=== PATIENT | female | born 1945 | race Caucasian/White ===

== ENCOUNTER → 2018-10-18 16:39 | Outpatient (CLI) | payer MEDICARE, SELFPAY ==
[2018-10-18 17:35] LABS: Prothrombin Time (Protime)PT. 12.6 SECONDS (11.7-14.9)
[2018-10-18 17:36] LABS: Partial Thromboplast Time 30.2 Seconds (24.1-36.2)
[2018-10-18 17:57] LABS: Basophil% 0.6 % (0-1); Eosinophils% 2.1 % (0-5); Hematocrit 44.1 % (37-47); Lymphocyte % 32.5 % (19-41); Mean Corpuscular Hgb 30.6 pg (27.0-32.0); Mean Platelet Vol. 9.3 fl (6.2-12.0); Monocyte% 10.7 % (0-10); Neutrophil % 53.8 % (47-70); POSITIVE COUNT NO; POSITIVE DIFFERENTIAL NO; POSITIVE MORPHOLOGY NO; Platelet Count 288 K/mm3 (150-450); RBC Distribution Width CV 13.9 % (11.6-14.6); RBC Distribution Width SD 45.6 fl (35.1-43.9)
[2018-10-18 17:58] LABS: Absolute Lymphocyte Count 2.59 X10^3/ul (0.83-4.51); Absolute Neutrophil Count 4.3 X10^3/uL (2.0-7.7); Basophil# 0.05 X10^3/uL; Eosinophil# 0.17 X10^3/uL; Lymphocyte # 2.59 X10^3/ul (4.0); Monocyte# 0.85 X10^3/uL
[2018-10-18 18:03] LABS: Vitamin D,25 Hydroxy 18.5 ng/mL (29.95-100.01)
[2018-10-18 18:04] LABS: ALB/GLOB Ratio 1.2 RATIO (0.9-2.4); AST(SGOT) 25 U/L (15-37); Alanine Aminotransfer ALT/SGPT 32 U/L (13-56); Albumin, Serum 4.2 g/dL (3.2-5.0); Alkaline Phosphatase 98 U/L (45-117); Anion Gap 3 (5-15); BUN 11 mg/dL (7-18); BUN/Creat Ratio 12.1 RATIO (10-20); Calcium,Total 9.4 mg/dL (8.5-10.1); Chloride 104 mmol/L (98-107); Creatinine, Serum 0.91 mg/dL (0.55-1.02); EST Glomerular Filtration Rate 65 mL/min (>60); Est Glom Filt Rate - Afr Amer 78 mL/min (>60); Globulin 3.6 g/dL (2.2-4.2); Glucose 85 mg/dL (74-106); Potassium 3.6 mmol/L (3.5-5.1); Protein, Total 7.8 g/dL (6.4-8.2); Sodium Level 138 mmol/L (136-145); Thyroid Stim Hormone (TSH) 0.98 uIU/mL (0.358-3.74)
== END ==
PROVIDERS: Visit Provider Family Medicine Geriatric Medicine
DX: D68.8 Other specified coagulation defects (principal); E55.9 Vitamin D deficiency, unspecified; I10 Essential (primary) hypertension
CPT/HCPCS: 36415; 80053; 82306; 84443; 85025; 85610; 85730

== ENCOUNTER → 2020-04-09 14:52 | Outpatient (CLI) | payer MEDICARE, SELFPAY ==
--- NOTE | 2020-04-09 15:15 | CT_ITS ---
STUDY: CT CHEST WITH CONTRAST REASON FOR EXAM: Female, 74 years old. Cough and voice change per patient RADIATION DOSAGE (If Supplied By Facility): CTDIvol = ( 11.45 ) mGy, DLP = ( 463.83 ) mGycm TECHNIQUE: Transaxial imaging was performed following intravenous administration of IV 100mL Isovue-300. Multiplanar coronal and sagittal images were reformatted. Individualized dose optimization techniques were used for this CT. COMPARISON: None. FINDINGS: Small benign-appearing bilateral axillary lymph nodes. Mild degree of increased linear markings in the medial aspect of the right middle lobe with evidence of bronchiectasis suggestive of scarring. Mild increased markings in the lingular segment of the left upper lobe suggestive of scarring. Mild degree of scarring at the lung bases as well. There is no demonstrated pleural abnormality. There are calcifications of the coronary arteries. There are multiple small lymph nodes within the mediastinum, which are normal in size and morphology most compatible with reactive lymph hyperplasia. Normal hilar regions. Normal enhanced pulmonary arteries. Normal aorta arch and descending thoracic aorta. There are multi-level degenerative changes of the thoracic spine. Small hiatal hernia. Prior cholecystectomy. CT/Chest WITH Contrast IMPRESSION: Findings suggestive of scarring in the right middle lobe and lingular segment of the left upper lobe as well as at both lung bases with mild degree of bronchiectasis. Electronically Signed: Manjeet Rodarte, at 12:54 EDT , Service support ,
[2020-04-09 15:21] LABS: CREATININE FINGERSTICK 0.9 mg/dL (0.55-1.02); EGFR FINGERSTICK > 60.0000 mL/min (>60)
== END ==
LOC: CT 10-10 00:29
PROVIDERS: PCP Family Medicine Geriatric Medicine; Referring Provider Family Medicine Geriatric Medicine; Visit Provider Family Medicine Geriatric Medicine
DX: J47.9 Bronchiectasis, uncomplicated (principal)
CPT/HCPCS: 71260; Q9967; A4216

== ENCOUNTER → 2020-04-12 09:39 | Outpatient (CLI) | payer MEDICARE, OTHER, SELFPAY ==
--- NOTE | 2020-04-13 10:27 | PFT ---
INTRODUCTION: The patient is a 74-year-old female that presents for pulmonary function studies secondary to a diagnosis of shortness of breath. Respiratory therapy reports good patient effort. Bronchodilators were used during testing. INTERPRETATION: Forced expiration spirometry demonstrates no evidence of a large airways obstructive ventilatory defect. There was no significant response to aerosolized bronchodilators. Spirograms are of good quality and plateau normally. Body plethysmography was performed and reveals lung volumes to be within normal limits. Diffusing capacity by single breath CO is also within normal limits. IMPRESSION: Grossly normal pulmonary function studies.
== END ==
PROVIDERS: PCP Family Medicine Geriatric Medicine; Referring Provider Family Medicine Geriatric Medicine; Visit Provider Family Medicine Geriatric Medicine
DX: R06.02 Shortness of breath (principal)
CPT/HCPCS: 94060; 94726; 94729

== ENCOUNTER → 2020-11-08 14:11 | Outpatient (CLI) | payer MEDICARE, SELFPAY ==
[2020-11-08 17:18] LABS: Absolute Lymphocyte Count 2.26 X10^3/uL (0.83-4.51); Absolute Neutrophil Count 3.8 X10^3/uL (2.0-7.7); Basophil# 0.04 X10^3/uL; Basophil% 0.6 % (0-1); Eosinophil# 0.18 X10^3/uL; Eosinophils% 2.5 % (0-5); Hematocrit 43.9 % (37-47); Hemoglobin 13.9 g/dL (12.0-15.0); Lymphocyte # 2.26 X10^3/ul (0.83-4.51); Lymphocyte % 31.8 % (19-41); Mean Corp Hgb Conc 31.7 g/dL (32-36); Mean Corpuscular Hgb 29.4 pg (27.0-32.0); Mean Corpuscular Volume 92.8 fL (81-99); Mean Platelet Vol. 9.6 fl (6.2-12.0); Monocyte# 0.83 X10^3/uL; Monocyte% 11.7 % (0-10); NRBC Flagged by Analyzer 0 % (0-5); Neutrophil # 3.76 X10^3/uL (2.7-7.7); Platelet Count 289 K/mm3 (150-450); RBC Distribution Width CV 13.4 % (11.6-14.6); RBC Distribution Width SD 46.2 fl (35.1-43.9); Red Blood Count 4.73 M/mm3 (4.2-5.4); White Blood Count 7.1 K/mm3 (4.4-11.0)
[2020-11-08 17:19] LABS: Vitamin D,25 Hydroxy 24.2 ng/mL
[2020-11-08 17:37] LABS: AST(SGOT) 18 U/L (15-37); Alanine Aminotransfer ALT/SGPT 28 U/L (13-56); Albumin, Serum 3.8 g/dL (3.2-5.0); Alkaline Phosphatase 87 U/L (45-117); Anion Gap 5 (5-15); BUN 21 mg/dL (7-18); BUN/Creat Ratio 17.5 RATIO (10-20); Calcium,Total 9.4 mg/dL (8.5-10.1); Chloride 103 mmol/L (98-107); EST Glomerular Filtration Rate 47 mL/min (>60); Est Glom Filt Rate - Afr Amer 56 mL/min (>60); Globulin 3.7 g/dL (2.2-4.2); Glucose 92 mg/dL (74-106); Potassium 4.2 mmol/L (3.5-5.1); Protein, Total 7.5 g/dL (6.4-8.2); Sodium Level 139 mmol/L (136-145); Thyroid Stim Hormone (TSH) 1.02 uIU/mL (0.358-3.74)
== END ==
PROVIDERS: PCP Family Medicine Geriatric Medicine; Visit Provider Family Medicine Geriatric Medicine
DX: E55.9 Vitamin D deficiency, unspecified (principal); I10 Essential (primary) hypertension
CPT/HCPCS: 36415; 80053; 82306; 84443; 85025

== ENCOUNTER → 2021-01-11 09:22 | Outpatient (CLI) | payer MEDICARE, OTHER, SELFPAY | PROVIDERS: PCP Family Medicine Geriatric Medicine; Visit Provider Family Medicine Geriatric Medicine | DX: R68.83 Chills (without fever) (principal) | CPT/HCPCS: 87635; C9803; U0005; U0003 ==

== ENCOUNTER → 2021-05-08 16:08 | Outpatient (CLI) | payer MEDICARE, OTHER, SELFPAY | PROVIDERS: PCP Family Medicine Geriatric Medicine; Referring Provider Family Medicine Geriatric Medicine; Visit Provider Family Medicine Geriatric Medicine | DX: R06.89 Other abnormalities of breathing (principal) | CPT/HCPCS: 87635; 87804; 87807; U0005; U0003 ==

== ENCOUNTER → 2021-05-09 15:55 | Outpatient (CLI) | payer MEDICARE, OTHER, SELFPAY ==
[2021-05-09 17:30] LABS: Absolute Lymphocyte Count 1.57 X10^3/uL (0.83-4.51); Absolute Neutrophil Count 6.9 X10^3/uL (2.0-7.7); Basophil# 0.02 X10^3/uL; Basophil% 0.2 % (0-1); Eosinophil# 0.22 X10^3/uL; Eosinophils% 2.3 % (0-5); Hematocrit 39.2 % (37-47); Hemoglobin 12.6 g/dL (12.0-15.0); Lymphocyte # 1.57 X10^3/ul (0.83-4.51); Lymphocyte % 16.6 % (19-41); Mean Corp Hgb Conc 32.1 g/dL (32-36); Mean Corpuscular Hgb 29.9 pg (27.0-32.0); Mean Corpuscular Volume 93.1 fL (81-99); Mean Platelet Vol. 9.4 fl (6.2-12.0); Monocyte# 0.67 X10^3/uL; Monocyte% 7.1 % (0-10); NRBC Flagged by Analyzer 0 % (0-5); Platelet Count 321 K/mm3 (150-450); RBC Distribution Width CV 13.3 % (11.6-14.6); RBC Distribution Width SD 45.2 fl (35.1-43.9); Red Blood Count 4.21 M/mm3 (4.2-5.4); White Blood Count 9.5 K/mm3 (4.4-11.0)
[2021-05-09 18:23] LABS: Vitamin D,25 Hydroxy 25.6 ng/mL
[2021-05-09 18:34] LABS: ALB/GLOB Ratio 0.8 RATIO (0.9-2.4); AST(SGOT) 26 U/L (15-37); Alanine Aminotransfer ALT/SGPT 47 U/L (13-56); Albumin, Serum 3.4 g/dL (3.2-5.0); Alkaline Phosphatase 85 U/L (45-117); Anion Gap 6 (5-15); BUN 39 mg/dL (7-18); BUN/Creat Ratio 26.4 RATIO (10-20); Calcium,Total 9.1 mg/dL (8.5-10.1); Chloride 101 mmol/L (98-107); Creatinine, Serum 1.48 mg/dL (0.55-1.02); EST Glomerular Filtration Rate 37 mL/min (>60); Est Glom Filt Rate - Afr Amer 44 mL/min (>60); Globulin 4.2 g/dL (2.2-4.2); Glucose 132 mg/dL (74-106); Potassium 4.6 mmol/L (3.5-5.1); Protein, Total 7.6 g/dL (6.4-8.2); Sodium Level 137 mmol/L (136-145)
== END ==
PROVIDERS: PCP Family Medicine Geriatric Medicine; Visit Provider Family Medicine Geriatric Medicine
DX: E55.9 Vitamin D deficiency, unspecified (principal); I10 Essential (primary) hypertension
CPT/HCPCS: 36415; 80053; 82306; 84443; 85025

== ENCOUNTER 2021-09-12 14:17 | Outpatient (CLI) | payer MEDICARE, OTHER, SELFPAY ==
[2021-09-12 17:48] LABS: Albumin, Serum 3.7 g/dL (3.2-5.0); BUN 21 mg/dL (7-18); BUN/Creat Ratio 16.7 RATIO (10-20); Calcium,Total 9.3 mg/dL (8.5-10.1); Chloride 101 mmol/L (98-107); Creatinine, Serum 1.26 mg/dL (0.55-1.02); EST Glomerular Filtration Rate 44 mL/min (>60); Est Glom Filt Rate - Afr Amer 53 mL/min (>60); Glucose 68 mg/dL (74-106); Phosphorus 3.1 mg/dL (2.5-4.9); Potassium 3.6 mmol/L (3.5-5.1); Sodium Level 138 mmol/L (136-145)
== END 2021-09-12 23:59 | disposition home or self-care (01) ==
PROVIDERS: PCP Family Medicine Geriatric Medicine; Visit Provider Internal Medicine Nephrology
DX: N17.9 Acute kidney failure, unspecified (principal)
CPT/HCPCS: 36415; 80069

== ENCOUNTER 2021-09-24 12:57 | Outpatient (CLI) | payer MEDICARE, OTHER, SELFPAY ==
--- NOTE | 2021-09-24 13:03 | US_ITS ---
STUDY: RENAL ULTRASOUND - COMPLETE REASON FOR EXAM: Female, 76 years old. STAGE 3 KIDNEY DISEASE TECHNIQUE: Ultrasound evaluation of the kidneys was performed with real-time and static walsh-scale imaging. COMPARISON: None. FINDINGS: RIGHT KIDNEY: Normal location of the right kidney, which is normal in size. The right kidney measures 10.74 cm. There is a normal cortex of the right kidney. There is no right renal mass or cyst. There are no right renal calculi. There is no right hydronephrosis. DISTAL RIGHT URETER: There is non-visualization of the distal right ureter. There is no demonstrated right ureterovesical junction calculus. There is a visualized right ureteral jet. LEFT KIDNEY: Normal location of the left kidney, which is normal in size. The left kidney measures 10.67 cm. There is a normal cortex of the left kidney. . There is no left renal mass or cyst. There are no left renal calculi. There is no left hydronephrosis. DISTAL LEFT URETER: There is non-visualization of the distal left ureter. There is no demonstrated left ureterovesical junction calculus. There is a visualized left ureteral jet. I.V.C.: The IVC is patent. US/Kidney and Bladder IMPRESSION: Normal ultrasound of the kidneys. Electronically Signed: Michael Ortiz MD at 6:09 EDT ,
== END 2021-09-24 23:59 | disposition home or self-care (01) ==
LOC: US 13:00
PROVIDERS: PCP Family Medicine Geriatric Medicine; Referring Provider Internal Medicine Nephrology; Visit Provider Internal Medicine Nephrology
DX: N18.32 Chronic kidney disease, stage 3b (principal)
CPT/HCPCS: 76770

== ENCOUNTER → 2021-12-12 | Outpatient (CLI) | payer MEDICARE, OTHER, SELFPAY ==
[2021-12-12 16:17] LABS: Absolute Lymphocyte Count 2.16 X10^3/uL (0.83-4.51); Absolute Neutrophil Count 3.4 X10^3/uL (2.0-7.7); Basophil# 0.05 X10^3/uL; Basophil% 0.8 % (0-1); Eosinophil# 0.14 X10^3/uL; Eosinophils% 2.2 % (0-5); Hematocrit 42.2 % (37-47); Hemoglobin 13.7 g/dL (12.0-15.0); Lymphocyte # 2.16 X10^3/ul (0.83-4.51); Lymphocyte % 33.3 % (19-41); Mean Corp Hgb Conc 32.5 g/dL (32-36); Mean Corpuscular Volume 92.3 fL (81-99); Mean Platelet Vol. 9.5 fl (6.2-12.0); Monocyte# 0.66 X10^3/uL; Monocyte% 10.2 % (0-10); NRBC Flagged by Analyzer 0 % (0-5); Neutrophil # 3.44 X10^3/uL (2.7-7.7); Platelet Count 270 K/mm3 (150-450); RBC Distribution Width CV 13.9 % (11.6-14.6); RBC Distribution Width SD 47.5 fl (35.1-43.9); Red Blood Count 4.57 M/mm3 (4.2-5.4); White Blood Count 6.5 K/mm3 (4.4-11.0)
[2021-12-12 16:30] LABS: Vitamin D,25 Hydroxy 25.4 ng/mL
[2021-12-12 16:45] LABS: AST(SGOT) 25 U/L (15-37); Alanine Aminotransfer ALT/SGPT 30 U/L (13-56); Albumin, Serum 3.6 g/dL (3.2-5.0); Alkaline Phosphatase 68 U/L (45-117); Anion Gap 6 (5-15); BUN 14 mg/dL (7-18); Calcium,Total 9.3 mg/dL (8.5-10.1); Chloride 104 mmol/L (98-107); Creatinine, Serum 1.17 mg/dL (0.55-1.02); EST Glomerular Filtration Rate 48 mL/min (>60); Est Glom Filt Rate - Afr Amer 58 mL/min (>60); Globulin 3.6 g/dL (2.2-4.2); Glucose 76 mg/dL (74-106); Potassium 3.3 mmol/L (3.5-5.1); Protein, Total 7.2 g/dL (6.4-8.2); Sodium Level 140 mmol/L (136-145); Thyroid Stim Hormone (TSH) 0.71 uIU/mL (0.358-3.74)
== END | disposition home or self-care (01) ==
LOC: POLAB3 13:12
PROVIDERS: PCP Family Medicine Geriatric Medicine; Visit Provider Family Medicine Geriatric Medicine
DX: E55.9 Vitamin D deficiency, unspecified (principal); I10 Essential (primary) hypertension
CPT/HCPCS: 36415; 80053; 82306; 84443; 85025

== ENCOUNTER → 2022-05-22 | Outpatient (CLI) | payer MEDICARE, OTHER, SELFPAY ==
[2022-05-22 16:58] LABS: Basophil# 0.05 X10^3/uL; Basophil% 0.6 % (0-1); Eosinophil# 0.19 X10^3/uL; Eosinophils% 2.3 % (0-5); Hemoglobin 14.3 g/dL (12.0-15.0); Mean Corp Hgb Conc 32.5 g/dL (32-36); Mean Corpuscular Volume 92.4 fL (81-99); Mean Platelet Vol. 9.5 fl (6.2-12.0); Monocyte# 1.08 X10^3/uL; Monocyte% 13.1 % (0-10); NRBC Flagged by Analyzer 0 % (0-5); Neutrophil % 60.6 % (47-70); Platelet Count 274 K/mm3 (150-450); RBC Distribution Width CV 13.7 % (11.6-14.6); RBC Distribution Width SD 47.2 fl (35.1-43.9); Red Blood Count 4.76 M/mm3 (4.2-5.4); White Blood Count 8.3 K/mm3 (4.4-11.0)
[2022-05-22 17:36] LABS: Vitamin D,25 Hydroxy 19.8 ng/mL
[2022-05-22 17:39] LABS: AST(SGOT) 17 U/L (15-37); Alanine Aminotransfer ALT/SGPT 29 U/L (13-56); Albumin, Serum 3.7 g/dL (3.2-5.0); Alkaline Phosphatase 85 U/L (45-117); Anion Gap 7 (5-15); BUN 13 mg/dL (7-18); BUN/Creat Ratio 13.5 RATIO (10-20); Calcium,Total 9.3 mg/dL (8.5-10.1); Chloride 106 mmol/L (98-107); Creatinine, Serum 0.96 mg/dL (0.55-1.02); EST Glomerular Filtration Rate 60 mL/min (>60); Est Glom Filt Rate - Afr Amer 72 mL/min (>60); Globulin 3.8 g/dL (2.2-4.2); Glucose 91 mg/dL (74-106); Potassium 3.5 mmol/L (3.5-5.1); Protein, Total 7.5 g/dL (6.4-8.2); Sodium Level 142 mmol/L (136-145); Thyroid Stim Hormone (TSH) 0.96 uIU/mL (0.358-3.74)
== END | disposition home or self-care (01) ==
LOC: POLAB3 14:50
PROVIDERS: PCP Family Medicine Geriatric Medicine; Visit Provider Family Medicine Geriatric Medicine
DX: I10 Essential (primary) hypertension (principal); E55.9 Vitamin D deficiency, unspecified
CPT/HCPCS: 36415; 80053; 82306; 84443; 85025

== ENCOUNTER 2022-07-24 11:51 | Outpatient (CLI) | payer MEDICARE, SELFPAY ==
--- NOTE | 2022-07-24 11:55 | CT_ITS ---
STUDY: CT ABDOMEN AND PELVIS WITH CONTRAST REASON FOR EXAM: Female, 77 years old. Mid to lower abdominal pain. Hypertension. RADIATION DOSAGE (If Supplied By Facility): CTDIvol = ( 14.61 ) mGy, DLP = ( 875.20 ) mGycm TECHNIQUE: Transaxial images were obtained from the dome of the diaphragm to the symphysis pubis with oral contrast. Oral and amp; IV Gastrografin and amp; 100mL Isovue-370 was administered. Sagittal and coronal images were reconstructed. Individualized dose optimization techniques were used for this CT. COMPARISON: None. FINDINGS: Minimal scarring at the lung bases with bronchiectasis. Scarring is also seen in the right middle lobe. The visualized portions of the heart are within normal limits. Minimally dilated central intrahepatic biliary ducts. There is a 9.3 mm hepatic cyst in the left lobe of the liver. There are surgical clips in the gallbladder fossa consistent with a prior cholecystectomy. Normal spleen. Normal pancreas. Normal bilateral adrenal glands. Tiny focal cortical scar in the lateral aspect of the right midportion of the kidney. Normal left kidney. There is a small hiatal hernia. Diffuse gastric wall thickening extending into the region of the antrum. The stomach is not adequately distended although gastritis should be ruled out. Normal small intestine. There is diverticulosis, with thickening of the colon wall, and pericolonic inflammation changes consistent with acute diverticulitis. The appendix is visualized and appears normal. Normal abdominal aorta. Normal inferior vena cava. Normal retroperitoneum. Normal urinary bladder. And heterogeneous appearance of the uterus suggestive of a fibroid uterus. Normal abdominal wall. There are diffuse degenerative changes of the visualized lumbar spine. CT/Abdomen/Pelvis WITH Contrast IMPRESSION: Status post cholecystectomy and minimal central intrahepatic biliary dilatation. Subcentimeter cyst in the left lobe of the liver. Diffuse gastric wall thickening extending to the region of the antrum. Acute noncomplicated sigmoid diverticulitis. Electronically Signed: Manjeet Rodarte MD at 14:41 EST ,
== END 2022-07-24 23:59 | disposition home or self-care (01) ==
PROVIDERS: PCP Family Medicine Geriatric Medicine; Visit Provider Family Medicine Geriatric Medicine
DX: R10.9 Unspecified abdominal pain (principal); R35.0 Frequency of micturition
CPT/HCPCS: 36415; 74177; 80053; 85025; 87086; 87088; Q9967

== ENCOUNTER → 2022-07-24 | Outpatient (CLI) | payer MEDICARE, SELFPAY ==
[2022-07-24 12:49] LABS: Absolute Lymphocyte Count 2.38 X10^3/uL (0.83-4.51); Absolute Neutrophil Count 8.2 X10^3/uL (2.0-7.7); Basophil# 0.05 X10^3/uL; Basophil% 0.4 % (0-1); Eosinophils% 1.6 % (0-5); Hematocrit 42.1 % (37-47); Hemoglobin 13.8 g/dL (12.0-15.0); Lymphocyte # 2.38 X10^3/ul (0.83-4.51); Lymphocyte % 19.4 % (19-41); Mean Corp Hgb Conc 32.8 g/dL (32-36); Mean Corpuscular Hgb 29.6 pg (27.0-32.0); Mean Corpuscular Volume 90.1 fL (81-99); Mean Platelet Vol. 9.4 fl (6.2-12.0); Monocyte# 1.38 X10^3/uL; Monocyte% 11.2 % (0-10); NRBC Flagged by Analyzer 0 % (0-5); Neutrophil # 8.19 X10^3/uL (2.7-7.7); Neutrophil % 66.8 % (47-70); Platelet Count 307 K/mm3 (150-450); RBC Distribution Width CV 13.2 % (11.6-14.6); RBC Distribution Width SD 43.8 fl (35.1-43.9); Red Blood Count 4.67 M/mm3 (4.2-5.4); White Blood Count 12.3 K/mm3 (4.4-11.0)
[2022-07-24 13:37] LABS: ALB/GLOB Ratio 0.8 RATIO (0.9-2.4); AST(SGOT) 18 U/L (15-37); Alanine Aminotransfer ALT/SGPT 25 U/L (13-56); Albumin, Serum 3.4 g/dL (3.2-5.0); Alkaline Phosphatase 91 U/L (45-117); Anion Gap 6 (5-15); BUN 13 mg/dL (7-18); BUN/Creat Ratio 12.5 RATIO (10-20); Calcium,Total 9.2 mg/dL (8.5-10.1); Chloride 104 mmol/L (98-107); Creatinine, Serum 1.04 mg/dL (0.55-1.02); EST Glomerular Filtration Rate 55 mL/min (>60); Est Glom Filt Rate - Afr Amer 66 mL/min (>60); Globulin 4.1 g/dL (2.2-4.2); Glucose 102 mg/dL (74-106); Potassium 3.8 mmol/L (3.5-5.1); Protein, Total 7.5 g/dL (6.4-8.2); Sodium Level 138 mmol/L (136-145)
== END | disposition home or self-care (01) ==
LOC: POLAB3 11:39
PROVIDERS: PCP Family Medicine Geriatric Medicine; Visit Provider Family Medicine Geriatric Medicine
DX: R10.9 Unspecified abdominal pain (principal); R35.0 Frequency of micturition
CPT/HCPCS: 36415; 80053; 85025; 87086; 87088

== ENCOUNTER → 2022-12-17 | Outpatient (CLI) | payer MEDICARE, SELFPAY ==
[2022-12-17 16:23] LABS: Absolute Lymphocyte Count 2.65 X10^3/uL (0.83-4.51); Absolute Neutrophil Count 4.3 X10^3/uL (2.0-7.7); Basophil# 0.06 X10^3/uL; Basophil% 0.7 % (0-1); Eosinophil# 0.14 X10^3/uL; Eosinophils% 1.7 % (0-5); Hematocrit 43.2 % (37-47); Hemoglobin 14.4 g/dL (12.0-15.0); Lymphocyte # 2.65 X10^3/ul (0.83-4.51); Lymphocyte % 32.6 % (19-41); Mean Corp Hgb Conc 33.3 g/dL (32-36); Mean Corpuscular Hgb 30.5 pg (27.0-32.0); Mean Corpuscular Volume 91.5 fL (81-99); Monocyte# 0.93 X10^3/uL; Monocyte% 11.4 % (0-10); NRBC Flagged by Analyzer 0 % (0-5); Neutrophil # 4.33 X10^3/uL (2.7-7.7); Neutrophil % 53.2 % (47-70); Platelet Count 274 K/mm3 (150-450); RBC Distribution Width CV 13.2 % (11.6-14.6); RBC Distribution Width SD 44.6 fl (35.1-43.9); Red Blood Count 4.72 M/mm3 (4.2-5.4); White Blood Count 8.1 K/mm3 (4.4-11.0)
[2022-12-17 17:08] LABS: Vitamin D,25 Hydroxy 25.5 ng/mL
[2022-12-17 17:15] LABS: AST(SGOT) 20 U/L (15-37); Alanine Aminotransfer ALT/SGPT 24 U/L (13-56); Albumin, Serum 3.6 g/dL (3.2-5.0); Alkaline Phosphatase 86 U/L (45-117); Anion Gap 2 (5-15); BUN 18 mg/dL (7-18); BUN/Creat Ratio 18.5 RATIO (10-20); Calcium,Total 9.3 mg/dL (8.5-10.1); Chloride 105 mmol/L (98-107); Creatinine, Serum 0.97 mg/dL (0.55-1.02); EST Glomerular Filtration Rate 59 mL/min (>60); Est Glom Filt Rate - Afr Amer 72 mL/min (>60); Globulin 3.5 g/dL (2.2-4.2); Glucose 89 mg/dL (74-106); Protein, Total 7.1 g/dL (6.4-8.2); Sodium Level 139 mmol/L (136-145); Thyroid Stim Hormone (TSH) 1.07 uIU/mL (0.358-3.74)
== END | disposition home or self-care (01) ==
PROVIDERS: PCP Family Medicine Geriatric Medicine; Referring Provider Family Medicine Geriatric Medicine; Visit Provider Family Medicine Geriatric Medicine
DX: I10 Essential (primary) hypertension (principal); E55.9 Vitamin D deficiency, unspecified
CPT/HCPCS: 36415; 80053; 82306; 84443; 85025

== ENCOUNTER → 2023-03-10 | Outpatient (CLI) | payer MEDICARE, SELFPAY ==
--- NOTE | 2023-03-10 12:31 | ECHOD_ITS ---
Reason For Study: CHEST PAIN Procedure This was a 2D Doppler, Color Flow transthoracic echocardiogram. Exam performed in department. Left Ventricle Normal LV size. Mild concentric left ventricular hypertrophy. The left ventricular ejection fraction is 70 %. Diastolic function is indeterminate. Right Ventricle Normal right ventricle. Atria The left and right atria are normal. Lipomatous hypertrophy of the atrial septum. Mitral Valve Trivial mitral valve insufficiency. Tricuspid Valve Trivial tricuspid valve insufficiency. Normal pulmonary artery pressure. Aortic Valve Normal aortic valve. Pulmonic Valve The pulmonic valve is not well visualized. Great Vessels Normal sized aortic root. Pericardium/Pleural No pericardial effusion. MMode/2D Measurements & Calculations LVIDd: 4.6 cm IVSd: 0.74 cm Ao root diam: 3.0 cm LVIDs: 2.9 cm LVPWd: 0.94 cm RVDd: 2.9 cm FS: 37.1 % LAV(MOD-bp): 56.8 ml LVAd ap4: 18.6 cm2 SV(MOD-sp4): 27.5 ml LAV(MOD-bp) Indexed: 32.7 ml/m2 LVLd ap4: 6.7 cm LAV(MOD-sp2): 46.6 ml EDV(MOD-sp4): 43.8 ml LAV(MOD-sp4): 57.3 ml EDV(sp4-el): 43.9 ml LVAs ap4: 9.6 cm2 LVLs ap4: 5.4 cm ESV(MOD-sp4): 16.2 ml ESV(sp4-el): 14.6 ml EF(MOD-sp4): 62.9 % EF(sp4-el): 66.8 % SV(sp4-el): 29.3 ml LA A4 area: 20.2 cm2 LA dimension(2D): 3.1 cm RA A4 area: 15.5 cm2 TAPSE: 2.5 cm Time Measurements MV dec time: 0.13 sec Doppler Measurements & Calculations MV E max manan: 54.4 cm/sec Lat Peak E' Manan: 7.3 cm/sec Med Peak E' Manan: 4.3 cm/sec MV A max manan: 87.5 cm/sec E/E' lat: 7.5 E/E' med: 12.7 MV E/A: 0.62 MV V2 max: 102.5 cm/sec Ao V2 max: 127.5 cm/sec MV max P.2 mmHg MV dec slope: 442.7 cm/sec2 Ao max P.5 mmHg MV V2 mean: 55.5 cm/sec Ao V2 mean: 85.6 cm/sec MV mean P.4 mmHg Ao mean P.4 mmHg MV V2 VTI: 31.4 cm Ao V2 VTI: 29.0 cm AV (velocity ratio): 0.73 LV V1 max: 102.6 cm/sec PA V2 max: 98.9 cm/sec TR max manan: 256.7 cm/sec LV V1 max P.2 mmHg PA V2 mean: 72.9 cm/sec TR max P.4 mmHg LV V1 mean P.1 mmHg LV V1 mean: 68.1 cm/sec LV V1 VTI: 21.3 cm ECHO/Echo Complete Interpretation Summary Mild concentric left ventricular hypertrophy. The left ventricular ejection fraction is 70 %. Diastolic function is indeterminate. Ordering Physician: Susannah Bryan Referring Physician: Susannah Bryan Performed By: Mary Simpson RCS
--- NOTE | 2023-03-10 15:58 | STRESSREP_ITS ---
Stress Test Report Date: 03/10/2023 Procedure: Exercise tolerance test Indications: Arrhythmia Consent: Per the patient Procedure: The patient exercised on a Marquis protocol for 7 minutes and 52 seconds achieving a peak heart rate of 115 bpm (79% predicted maximal heart rate) with a peak blood pressure 190/90 mmHg and a peak MET capacity of approximately 10.1 MET's. The baseline ECG demonstrated sinus rhythm. The peak exercise ECG demonstrated [address] depressions in inferior and lateral leads. There were no cardiac dysrhythmias pretest, during exercise, or recovery. The functional capacity was considered average. The patient had no complaints of chest discomfort during exercise or recovery. The examination was discontinued secondary to target heart rate being achieved. Impression: 1. Technically adequate exercise tolerance test 2. Peak exercise ECG with downsloping ST depressions in inferior leads suggestive of ischemia 3. There were no cardiac dysrhythmias during exercise or recovery This note was generated with [employer] software. It may contain incorrect words, spelling, and punctuation that were not noted in checking the note before signing.
== END | disposition home or self-care (01) ==
LOC: CVS 12:29
PROVIDERS: PCP Family Medicine Geriatric Medicine; Referring Provider Internal Medicine Cardiovascular Disease; Visit Provider Internal Medicine Cardiovascular Disease
DX: R07.9 Chest pain, unspecified (principal); I47.1 Supraventricular tachycardia; I10 Essential (primary) hypertension; R00.2 Palpitations
CPT/HCPCS: 93017; 93306

== ENCOUNTER → 2023-04-23 | Outpatient (CLI) | payer MEDICARE, SELFPAY ==
--- NOTE | 2023-04-23 13:18 | CT_ITS ---
STUDY: CT CHEST WITHOUT CONTRAST REASON FOR EXAM: Female, 78 years old. CHEST PAIN. Cardiac over read examination. RADIATION DOSAGE (If Supplied By Facility): CTDIvol = ( 30.91 ) mGy, DLP = ( 993.46 ) mGycm TECHNIQUE: Transaxial imaging was performed without the administration of intravenous contrast material. Individualized dose optimization techniques were used for this CT. COMPARISON: No relevant priors. FINDINGS: CHEST Focal linear scarring in the medial aspect of the right upper lobe with focal bronchiectasis. There is evidence of bronchiectasis in the posterior medial segments of both lower lobes slightly more prominent on the right side. There is no demonstrated pleural abnormality. There are calcifications of the coronary arteries. There are multiple small lymph nodes within the mediastinum, which are normal in size and morphology most compatible with reactive lymph hyperplasia. Normal hilar regions. Normal unenhanced pulmonary arteries. Normal aorta arch and descending thoracic aorta. Normal osseous structures. Small hiatal hernia. CT/Limited Chest CT Cardiac Only IMPRESSION: Coronary artery calcification. Mild scarring and bronchiectasis in the posterior segment of both lower lobes slightly more prominent on the right side as well as in the medial aspect of the right upper lobe. Electronically Signed: Manjeet Rodarte MD at 14:28 EDT ,
[2023-04-23 13:32] VITALS: BP 177/83; PULSE 64; RESP 16; TEMP 36.9; O2SAT 98; BMI 27.6
[2023-04-23 13:38] VITALS: BP 143/75; PULSE 64; RESP 16; O2SAT 97
[2023-04-23 13:50] VITALS: BP 143/75; PULSE 64
[2023-04-23] MEDS: Nitroglycerin SL (ED/IMG/CATH) 0.4 MG TABLET SL (13:50)
[2023-04-23 13:55] VITALS: BP 155/92; PULSE 69; RESP 16; O2SAT 95
--- NOTE | 2023-05-11 18:33 | CCTA.WCONT ---
CCTA w/Cont Coronary Arteries Date of Study:: 04/23/23 Abnormal stress test Coronary Calcium Scoring: High-resolution Computed Tomographic imaging of the chest was performed on [04/23/2023], with particular attention paid to the coronary arteries. Intravenous contrast agent was administered per protocol and images reconstructed and displayed. LEFT MAIN CORONARY ARTERY: This arose from the left coronary cusp with mild calcification noted. The vessel bifurcating to left anterior descending artery and left circumflex artery. No significant obstruction was noted [] LEFT ANTERIOR DESCENDING CORONARY ARTERY: There was mild proximal eccentric calcification noted with stenosis no more than 50%. The rest of the vessel continued towards the apex of the ventricle with no high-grade stenosis present. [] LEFT CIRCUMFLEX CORONARY ARTERY: Nondominant vessel with mild proximal atherosclerotic plaquing and no significant obstructive disease noted. 2 obtuse marginal branches were present. [] RIGHT CORONARY ARTERY: Large dominant vessel arising from the right coronary cusp and ending the posterior descending artery and posterolateral vessel. No significant stenosis present. Conclusion: Nonobstructive atherosclerotic plaque noted with calcification noted in the proximal LAD with eccentric moderate stenosis present
== END | disposition home or self-care (01) ==
LOC: CT 13:18
PROVIDERS: PCP Family Medicine Geriatric Medicine; Referring Provider Nurse Practitioner Family; Visit Provider Nurse Practitioner Family
DX: R07.9 Chest pain, unspecified (principal); R94.39 Abnormal result of other cardiovascular function study; I47.10 Supraventricular tachycardia, unspecified; E78.5 Hyperlipidemia, unspecified; I10 Essential (primary) hypertension; R00.2 Palpitations
CPT/HCPCS: 75574; 76380; Q9967

== ENCOUNTER → 2023-06-25 | Outpatient (CLI) | payer MEDICARE, SELFPAY ==
[2023-06-25 14:57] LABS: Absolute Lymphocyte Count 2.68 X10^3/uL (0.83-4.51); Absolute Neutrophil Count 3.8 X10^3/uL (2.0-7.7); Basophil# 0.04 X10^3/uL; Basophil% 0.5 % (0-1); Eosinophil# 0.16 X10^3/uL; Eosinophils% 2.1 % (0-5); Hemoglobin 14.8 g/dL (12.0-15.0); Lymphocyte # 2.68 X10^3/ul (0.83-4.51); Lymphocyte % 35.3 % (19-41); Mean Corp Hgb Conc 32.9 g/dL (32-36); Mean Corpuscular Hgb 30.6 pg (27.0-32.0); Mean Corpuscular Volume 93.2 fL (81-99); Mean Platelet Vol. 9.2 fl (6.2-12.0); Monocyte# 0.91 X10^3/uL; NRBC Flagged by Analyzer 0 % (0-5); Neutrophil # 3.77 X10^3/uL (2.7-7.7); Neutrophil % 49.6 % (47-70); Platelet Count 266 K/mm3 (150-450); RBC Distribution Width CV 12.8 % (11.6-14.6); RBC Distribution Width SD 43.8 fl (35.1-43.9); Red Blood Count 4.83 M/mm3 (4.2-5.4); White Blood Count 7.6 K/mm3 (4.4-11.0)
[2023-06-25 15:10] LABS: Vitamin D,25 Hydroxy 44.3 ng/mL
[2023-06-25 15:18] LABS: AST(SGOT) 16 U/L (15-37); Alanine Aminotransfer ALT/SGPT 29 U/L (13-56); Albumin, Serum 3.6 g/dL (3.2-5.0); Alkaline Phosphatase 75 U/L (45-117); Anion Gap 7 (5-15); BUN 15 mg/dL (7-18); BUN/Creat Ratio 13.9 RATIO (10-20); Calcium,Total 9.4 mg/dL (8.5-10.1); Chloride 105 mmol/L (98-107); Creatinine, Serum 1.08 mg/dL (0.55-1.02); EST Glomerular Filtration Rate 52 mL/min (>60); Est Glom Filt Rate - Afr Amer 63 mL/min (>60); Globulin 3.7 g/dL (2.2-4.2); Glucose 98 mg/dL (74-106); Potassium 3.8 mmol/L (3.5-5.1); Protein, Total 7.3 g/dL (6.4-8.2); Sodium Level 140 mmol/L (136-145); Thyroid Stim Hormone (TSH) 1.46 uIU/mL (0.358-3.74)
--- OUTSIDE RECORDS SUMMARY | 2023-06-25 15:46 | XMS RPT_ITS | CCD ---
Author Name Unknown Address [address] [place] [address] Organization [facility] Care Team Providers Care Real Estate Closing Coordinator Name Role Phone Ole Biswas Primary Care Provider Schuyler Cooper MD Primary Care Provider TATI DIETZ Referring Unavailable [facility] Primary Care Unavailable [facility] Primary Care Unavailable KACIE TRISTAN Attending Unavailable [facility] Primary Care Unavailable TATI DIETZ Attending Unavailable Allergies Allergy Classification Reported Allergen(s) Allergy Type Date of Onset Reaction(s) Facility (2 sources) Lisinopril Allergy to substance 08-01-2022 Angioedema [facility] Medications Current Medications Medication Drug Class(es) Dates Sig (Normalized) Sig (Original) amLODIPine 10 mg oral tablet (5 sources) Dihydropyridine [facility] Start: 11-22-2018 take 1 tablet by mouth once daily amLODIPine (NORVASC) 10 MG tablet TAKE ONE TABLET BY MOUTH EVERY DAY 90 tablet 1 11/22/2018 Active Completed/Discontinued Medications Medication Drug Class(es) Dates Sig (Normalized) Sig (Original) [id number] 200 actuat albuterol 0.09 mg/actuat metered dose inhaler (1 source) beta2-Adrenergic Agonist Start: 06-07-2019 End: 06-07-2019 albuterol sulfate HFA 108 (90 Base) MCG/ACT inhaler 4 puff Problems Active Problems Problem Classification Problem Date Documented Date Episodic/Chronic Asthma (1 source) Cough variant asthma Chronic Cardiac dysrhythmias (4 sources) Supraventricular tachycardia; Translations: [Supraventricular tachycardia] Onset: 02-03-2023 02-03-2023 Chronic Chronic obstructive pulmonary disease and bronchiectasis (5 sources) Bronchiectasis; Translations: [Bronchiectasis, uncomplicated] Onset: 07-07-2017 07-07-2017 Chronic Disorders of lipid metabolism (5 sources) Pure hypercholesterolemia; Translations: [Pure hypercholesterolemia, unspecified] Onset: 01-25-2015 01-25-2015 Chronic E Codes: Natural/environment (1 source) Cat bite - wound; Translations: [Bitten by cat, initial encounter] Episodic Essential hypertension (5 sources) Hypertensive disorder; Translations: [Essential (primary) hypertension] Onset: 01-25-2015 01-25-2015 Chronic Other injuries and conditions due to external causes (1 source) Angioedema; Translations: [Angioneurotic edema, initial encounter] Episodic Past or Other Problems Problem Classification Problem Date Documented Da te Episodic/Chronic Nonspecific chest pain (2 sources) Chest pain, unspecified; Translations: [Chest pain, unspecified] Onset: 08-01-2022 Episodic Other bone disease and musculoskeletal deformities (5 sources) Osteopenia; Translations: [Other specified disorders of bone density and structure, unspecified site] Onset: 01-25-2015 01-25-2015 Episodic Other lower respiratory disease (1 source) Dyspnea Episodic Residual codes; unclassified (5 sources) Dependent edema; Translations: [Edema, unspecified] Onset: 09-21-2018 09-21-2018 Episodic Results Test Name Value Interpretation Reference Range Facil ity Vital Signs Date Time Vital Sign Value Performing Clinician Gideon quiros 02-03-2023 07:06-0400 Body temperature 98.2 [degF] Kacie Kun DO Work Phone: [employer] 02-03-2023 07:06-0400 Diastolic blood pressure 86 mm[Hg] Kacie Tristan DO Work Phone: [employer] 02-03-2023 07:06-0400 Heart rate 80 /min Kacie Sáncheznett DO Work Phone: [employer] 02-03-2023 07:06-0400 Respiratory rate 14 /min Kacie Kun DO Work Phone: [employer] [facility] 02-03-2023 07:06-0400 SaO2% (BldA) [Mass fraction] 100 % Kacie Tristan DO Work Phone: [employer] [facility] 02-03-2023 07:06-0400 Systolic blood pressure 141 mm[Hg] Kacie Tristan DO Work Phone: [facility] 02-03-2023 06:11-0400 Body height 160 cm Kacie Tristan DO Work Phone: [facility] 02-03-2023 06:11-0400 Body mass index (BMI) [Ratio] 27.63 kg/m2 Kacie Tristan DO Work Phone: [facility] 02-03-2023 06:11-0400 Body weight 70.76 kg Kacie Tristan DO Work Phone: [facility] 10-12-2021 19:19-0400 Diastolic blood pressure 85 mm[Hg] Silvestre Torres MD Work Phone: [facility] 10-12-2021 19:19-0400 Heart rate 73 /min Silvestre Torres MD Work Phone: [facility] 10-12-2021 19:19-0400 Respiratory rate 16 /min Silvestre Torres MD Work Phone: [facility] 10-12-2021 19:19-0400 SaO2% (BldA) [Mass fraction] 93 % Silvestre Torres MD Work Phone: [facility] 10-12-2021 19:19-0400 Systolic blood pressure 162 mm[Hg] Silvestre Torres MD Work Phone: [facility] Encounters Encounter Date Encounter Type Care Provider Facility Start: 02-03-2023 End: 02-03-2023 [email or web address] Start: 02-03-2023 End: 02-03-2023 Emergency department patient visit Kacie Tristan DO Work Phone: [facility] ED Procedures Date Procedure Procedure Detail Performing Clinician Start: 02-03-2023 Ecg routine ecg w/le ast 12 lds trcg only w/o i&r Kacie Sáncheznett DO Work Phone: Start: 02-03-2023 Urnls dip stick/tabl et rgnt auto w/o microscopy Kacie Tristan DO Work Phone: Start: 02-03-2023 Basic metabolic pane l calcium total Kacie Tristan DO Work Phone: Start: 10-12-2021 Comprehensive metabo lic panel Silvestre Torres MD Work Phone: Start: 05-09-2020 Blood count complete automated Remberto Ramos Work Phone: Start: 06-07-2019 Brncdilat rspse spmt ry pre&post-brncdilat admn Juan Pablo Logan MD Work Phone: Start: 01-05-2018 Colonoscopy Silvestre miller MD Work Phone: Plan of Treatment Date Care Activity Detail Author Start: 01-06-2028 Colon cancer screen colonoscopy Colon cancer screen colonoscopy [facility] Work Phone: Start: 01-06-2028 Screening for malign ant neoplasm of colon [facility] Start: 01-18-2024 DTaP/Tdap/Td vaccine (2 - Tdap) DTaP/Tdap/Td vaccine (2 - Tdap) [facility] Start: 01-18-2024 DTaP/Tdap/Td Vaccine s (2 - Tdap) DTaP/Tdap/Td Vaccines (2 - Tdap) [facility] Start: 02-20-2023 Influenza vaccination Influenza Vacc ine (#1) [facility] Start: 02-21-2020 Influenza vaccination Flu vaccine (# 1) [place], [place] Start: 08-27-2019 Breast cancer screen Breast cancer s creen [facility] Work Phone: Start: 08-27-2019 Screening for malign ant neoplasm of breast Breast cancer screen [place], [place] Start: 06-12-2019 Annual Wellness Visi t (AWV) Annual Wellness Visit (AWV) [facility] Start: 1996 Shingles Vaccine (1 of 2) Onofre gles Vaccine (1 of 2) [facility] Start: 1996 Zoster Vaccines (1 of 2) Zoster Vacc jailene (1 of 2) [facility] Start: 1991 Screening for malign ant neoplasm of colon [facility] Start: 1964 Hepatitis C screening [facility] Start: 1958 Depression Screen Depression Screen [facility] Start: 1958 Depression Screening Depression Scre ening [facility] Start: 1956 Lipid panel [facility] Start: 1956 Lipid screen Lipid screen [facility] Work Phone: Start: 1946 Hepatitis C screen Hepatitis C scree n [facility] Work Phone: Start: 1946 Hepatitis C screening Hepatitis C sc [facility], [place] Start: 1946 Lipid panel Lipid Panel [facility] [place] Start: 1946 Screening for osteoporosis Bone Density Scan [facility] End: 06-07-2019 CT CHEST WO CONTRAST CT CHEST WO CONTRAST Imaging Routine Cough variant asthma SOB (shortness of breath) 1 Occurrences starting 06/07/2019 until 06/07/2019 [facility] Work Phone: Immunizations Immunization Date Immunization Notes Care Provider [facility] 04-05-2022 influenza virus vacc ine, unspecified formulation Kacie Tristan DO Work Phone: [facility] 03-15-2018 influenza, high dose seasonal, preservative-free Juan Pablo Logan MD Work Phone: [facility] 03-15-2018 pneumococcal polysaccharide vaccine, 23 valent Juan Pablo Logan MD Work Phone: [facility] Work Phone: 10-07-2016 pneumococcal conjuga te vaccine, 13 valent Juan Pablo Logan MD Work Phone: [facility] Work Phone: 01-17-2014 diphtheria, tetanus toxoids and acellular pertussis vaccine Juan Pablo Logan MD Work Phone: [facility] Work Phone: 08-13-2011 Td, unspecified formulation Juan Pablo Logan MD Work Phone: [facility] Work Phone: Payers Date Payer Category Payer Medicare AETNA MEDICARE A DVANTAGE AETNA MEDICARE [id number] 2022-Present [address] [place] [address] Medicare HMO [id number] 2022 Medicare [id number] 2015 Medicare MEDICARE MEDICAR E PART A AND B [id number] 2015-Present [phone] [place] [address] [id number] 2015 Medicare MEDICARE MEDICAR E PART A AND B xxxxxxxxxxx 2015-Present [phone] [place] [address] xxxxxxxxxxx [id number] 2015 Private Health Insurance [id number] 2015 Private Health Insurance AETNA AETNA SENIOR MEDICARE SUPP xxxxxxxxxx 2015-Present [phone] [address] [place] [address] xxxxxxxxxx [id number] Social History Date Type Detail Facility Start: 01-25-2015 End: 05-09-2019 Tobacco smoking status NHIS Never smoker [employer] Work Phone: Start: 01-25-2015 End: 05-09-2019 Tobacco use and exposure [facility] [place] Start: 05-09-2019 End: 10-12-2021 Alcohol intake Current non-drinker of alcohol (finding) [facility] Work Phone: Start: 1945 Sex Assigned At Not on file [facility] Work Phone: Start: 10-02-2021 End: 02-03-2023 Exposure to SARS-CoV-2 (event) Not sure [facility] Work Phone: Start: 02-03-2023 Alcohol intake Ex-drinker (finding) [facility] Start: 08-01-2022 History of Social function [facility] Start: 08-01-2022 Tobacco use panel [facility] Start: 08-01-2022 Alcohol Comment [facility] Goals Date Patient Goal Desired Activity /State Emergency department Note 02-03-2023 Kacie Tristan DO - 02/03/2023 6:10 AM EDTDanyelle Prabhakar RN - 02/03/2023 6:10 AM EDT Note Date & Type Note Facility 02-03-2023 Emergency departm ent Note EMERGENCY DEPARTMENT ENCOUNTER Pt Name: Hakeem Gallego Birthdate 1945 Date of evaluation: 02/03/2023 ED Provider: Kacie Tristan DO CHIEF COMPLAINT No chief complaint on file. HISTORY OF PRESENT ILLNESS (Location/Symptom, Timing/Onset, Context/Setting, Quality, Duration, Modifying Factors, Severity) Note limiting factors. I wore appropriate PPE for the entirety of this encounter. HPI Hakeem Gallego is a 77 y.o. female who presents to the emergency department with chief complaint of palpitations, tachycardia. Patient reports that she got up to use the restroom and that she was going back to lay down she felt her heart began to race. Patient reports that she has had similar episodes on multiple occasions in the past. Reports that this will occur every several months and has for years. She reports typically she can take deep breaths and her palpitations improved/resolved. She reports that this episode persisted for 20-25 minutes, she took 2 aspirin and called EMS. Patient denies any chest pain however she did experience tingling in her left arm. Reports lightheadedness, no near syncope or syncope. Denies any dyspnea, cough or sputum production. Denies any peripheral edema. Patient does report urinary frequency. Patient reports history of CKD, no known history of CAD. Primary care physician has previously referred her to a wind farm designer however she has yet to establish. Nursing Notes were reviewed. Limitations to history: None Outside historians: None REVIEW OF SYSTEMS Review of Systems PAST MEDICAL HISTORY Past Medical History: Diagnosis Date Arthritis Bronchiectasis without complication (CMS/HCC) (HCC) Diverticulosis of colon (without mention of hemorrhage) Hyperlipidemia Hypertension Osteopenia SURGICAL HISTORY Past Surgical History: Procedure Laterality Date CHOLECYSTECTOMY COLONOSCOPY 2008 KNEE ARTHROPLASTY Right 2017 TONSILLECTOMY (HISTORICAL) TUBAL LIGATION WISDOM TOOTH EXTRACTION CURRENT MEDICATIONS Previous Medications CETIRIZINE (ZYRTEC) 10 MG TABLET Take 5 mg by mouth. ALLERGIES Lisinopril FAMILY HISTORY Family History Problem Relation Name Age of Onset Stroke Mother Arthritis Sister High Blood Pressure Mother Arthritis Sister Cancer Mother Arthritis Sister Cancer Father lung cancer SOCIAL HISTORY Social History Socioeconomic History Marital status: Tobacco Use Smoking status: Never Smokeless tobacco: Never Substance and Sexual Activity Alcohol use: Yes Comment: occ. Drug use: Never SCREENINGS PHYSICAL EXAM ED Triage Vitals Temp Pulse Resp BP -- -- -- -- SpO2 Temp src Heart Rate Source Patient Position -- -- -- -- BP Location FiO2 (%) -- -- GENERAL APPEARANCE: Awake and alert. Cooperative. No acute distress. HEAD: Normocephalic. Atraumatic. EYES: EOM's grossly intact. Sclera anicteric. ENT: Mucous membranes are dry. Tolerates saliva. No trismus. NECK: Supple. No meningismus. Trachea midline. HEART: RRR. Radial pulses 2+. LUNGS: Respirations unlabored. CTAB ABDOMEN: Soft. Non-tender. No guarding, rigidity or rebound. No distention. EXTREMITIES: No acute deformities. +2 peripheral pulses. No peripheral edema. SKIN: Warm and dry. NEUROLOGICAL: No gross facial drooping. Moves all 4 extremities spontaneously. PSYCHIATRIC: Normal mood. DIAGNOSTIC RESULTS Procedures/EKG: EKG was reviewed by myself. Physician EKG interpretation can be found in [facility] RADIOLOGY (Per Emergency Physician): Interpretation per the Radiologist below, if available at the time of this note: No orders to display ED BEDSIDE ULTRASOUND: Performed by ED Physician - none LABS: Labs Reviewed BASIC METABOLIC PANEL CBC (HEMOGRAM) THYROID STIMULATING HORMONE TROPONIN I COMPLETE URINALYSIS All other labs were within normal range or not returned as of this dictation. EMERGENCY DEPARTMENT COURSE and DIFFERENTIAL DIAGNOSIS/MDM: Vitals: There were no vitals filed for this visit. Diagnoses as of 02/03/23 0636 SVT (supraventricular tachycardia) (CMS/HCC) (HCC) Medications sodium chloride 0.9 % bolus 1,000 mL (has no administration in time range) MDM: Vital signs are within normal limits on presentation, hemodynamically stable, afebrile. EKG transmitted by EMS is demonstrating SVT, rate in the 170s. Patient spontaneously converted while in route with EMS. Repeat EKG on arrival is demonstrating sinus rhythm, no evidence of ischemia. Patient is reporting that symptoms have resolved and she is feeling well. Clinically she does appear to be dry. Differential includes SVT, SAIGE, UTI, hyperthyroidism. We will obtain lab work, urinalysis. Will give 1 L fluid bolus. SVT with spontaneous conversion to sinus rhythm, no evidence of acute ischemia. Patient is asymptomatic following spontaneous conversion from SVT to sinus rhythm. If lab work, urinalysis is reassuring suspect patient will be stable to follow with cardiology, will be given referral. Patient signed out to Dr. Zapata, pending lab work, urinalysis, reevaluation. CONSULTS: None PROCEDURES: Unless otherwise noted below, none Procedures FINAL IMPRESSION 1. SVT (supraventricular tachycardia) (CMS/HCC) (HCC) DISPOSITION PATIENT REFERRED TO: [facility] Cardiology [address] [facility] [address] Schuyler Cooper MD [address] [facility] [address] [facility] [address] [facility] ED [address] [facility] [address] As needed, If symptoms worsen DISCHARGE MEDICATIONS: New Prescriptions No medications on file (Comment: Please note this report has been produced using speech recognition software and may contain errors related to that system including errors in grammar, punctuation, and spelling, as well as words and phrases that may be inappropriate. If there are any questions or concerns please feel free to contact the dictating provider for clarification.) Kacie Tristan DO (electronically signed) Emergency Medicine Provider Kacie Tristan DO 02/03/23 0657 Patient ambulated from [facility] stretcher to bedside commode, then to ED cot without difficulty. EMS reports that upon arrival patient had heart rate of 176 that did not resolve with the vagal maneuver. IV was placed and NS started. En route patient's heart rhythm converted from SVT to NSR with heart rate of 88. She states that she woke from sleep around 0500 to urinate, then after 10 minutes of laying back in bed she felt her heart beating rapidly. She tried to correct by sitting up and slow breathing, but after 25 minutes she called ambulance. She took ASA 162mg at home. She notes that she has tachycardia every 4-6 months that is short lived and resolves on its own, this has been happening for years and she has not seen cardiology. She denies having a cardiac history or trigger for these episodes. She denies chest pain, shortness of breath, or swelling in the legs. She states that she had a little lightheadedness and maybe some tingling in the arms. Patient appears to be in no acute distress. Skin is warm, dry, and pink. A&O x3. Respirations even and non labored. Bed in locked and low position. Call light within reach. Patient has no further needs. documented in this encounter [facility] Emergency department Triage note 02-03-2023 Danyelle Prabhakar RN - 02/03/2023 6:10 AM EDT Note Date & Type Note Facility 02-03-2023 Emergency departm ent Triage note Patient ambulated from [facility] stretcher to bedside commode, then to ED cot without difficulty. EMS reports that upon arrival patient had heart rate of 176 that did not resolve with the vagal maneuver. IV was placed and NS started. En route patient's heart rhythm converted from SVT to NSR with heart rate of 88. She states that she woke from sleep around 0500 to urinate, then after 10 minutes of laying back in bed she felt her heart beating rapidly. She tried to correct by sitting up and slow breathing, but after 25 minutes she called ambulance. She took ASA 162mg at home. She notes that she has tachycardia every 4-6 months that is short lived and resolves on its own, this has been happening for years and she has not seen cardiology. She denies having a cardiac history or trigger for these episodes. She denies chest pain, shortness of breath, or swelling in the legs. She states that she had a little lightheadedness and maybe some tingling in the arms. Patient appears to be in no acute distress. Skin is warm, dry, and pink. A&O x3. Respirations even and non labored. Bed in locked and low position. Call light within reach. Patient has no further needs. [facility] Physician Emergency department Note 02-03-2023 Kacie Tristan DO - 02/03/2023 6:10 AM EDT Note Date & Type Note Facility 02-03-2023 Physician Emergen cy department Note EMERGENCY DEPARTMENT ENCOUNTER Pt Name: Hakeem Gallego Birthdate 1945 Date of evaluation: 02/03/2023 ED Provider: Kacie Tristan DO CHIEF COMPLAINT No chief complaint on file. HISTORY OF PRESENT ILLNESS (Location/Symptom, Timing/Onset, Context/Setting, Quality, Duration, Modifying Factors, Severity) Note limiting factors. I wore appropriate PPE for the entirety of this encounter. HPI Hakeem Gallego is a 77 y.o. female who presents to the emergency department with chief complaint of palpitations, tachycardia. Patient reports that she got up to use the restroom and that she was going back to lay down she felt her heart began to race. Patient reports that she has had similar episodes on multiple occasions in the past. Reports that this will occur every several months and has for years. She reports typically she can take deep breaths and her palpitations improved/resolved. She reports that this episode persisted for 20-25 minutes, she took 2 aspirin and called EMS. Patient denies any chest pain however she did experience tingling in her left arm. Reports lightheadedness, no near syncope or syncope. Denies any dyspnea, cough or sputum production. Denies any peripheral edema. Patient does report urinary frequency. Patient reports history of CKD, no known history of CAD. Primary care physician has previously referred her to a wind farm designer however she has yet to establish. Nursing Notes were reviewed. Limitations to history: None Outside historians: None REVIEW OF SYSTEMS Review of Systems PAST MEDICAL HISTORY Past Medical History: Diagnosis Date Arthritis Bronchiectasis without complication (CMS/HCC) (HCC) Diverticulosis of colon (without mention of hemorrhage) Hyperlipidemia Hypertension Osteopenia SURGICAL HISTORY Past Surgical History: Procedure Laterality Date CHOLECYSTECTOMY COLONOSCOPY 2007 KNEE ARTHROPLASTY Right 2017 TONSILLECTOMY (HISTORICAL) TUBAL LIGATION WISDOM TOOTH EXTRACTION CURRENT MEDICATIONS Previous Medications CETIRIZINE (ZYRTEC) 10 MG TABLET Take 5 mg by mouth. ALLERGIES Lisinopril FAMILY HISTORY Family History Problem Relation Name Age of Onset Stroke Mother Arthritis Sister High Blood Pressure Mother Arthritis Sister Cancer Mother Arthritis Sister Cancer Father lung cancer SOCIAL HISTORY Social History Socioeconomic History Marital status: Tobacco Use Smoking status: Never Smokeless tobacco: Never Substance and Sexual Activity Alcohol use: Yes Comment: occ. Drug use: Never SCREENINGS PHYSICAL EXAM ED Triage Vitals Temp Pulse Resp BP -- -- -- -- SpO2 Temp src Heart Rate Source Patient Position -- -- -- -- BP Location FiO2 (%) -- -- GENERAL APPEARANCE: Awake and alert. Cooperative. No acute distress. HEAD: Normocephalic. Atraumatic. EYES: EOM's grossly intact. Sclera anicteric. ENT: Mucous membranes are dry. Tolerates saliva. No trismus. NECK: Supple. No meningismus. Trachea midline. HEART: RRR. Radial pulses 2+. LUNGS: Respirations unlabored. CTAB ABDOMEN: Soft. Non-tender. No guarding, rigidity or rebound. No distention. EXTREMITIES: No acute deformities. +2 peripheral pulses. No peripheral edema. SKIN: Warm and dry. NEUROLOGICAL: No gross facial drooping. Moves all 4 extremities spontaneously. PSYCHIATRIC: Normal mood. DIAGNOSTIC RESULTS Procedures/EKG: EKG was reviewed by myself. Physician EKG interpretation can be found in [facility] RADIOLOGY (Per Emergency Physician): Interpretation per the Radiologist below, if available at the time of this note: No orders to display ED BEDSIDE ULTRASOUND: Performed by ED Physician - none LABS: Labs Reviewed BASIC METABOLIC PANEL CBC (HEMOGRAM) THYROID STIMULATING HORMONE TROPONIN I COMPLETE URINALYSIS All other labs were within normal range or not returned as of this dictation. EMERGENCY DEPARTMENT COURSE and DIFFERENTIAL DIAGNOSIS/MDM: Vitals: There were no vitals filed for this visit. Diagnoses as of 02/03/23 0636 SVT (supraventricular tachycardia) (CMS/HCC) (HCC) Medications sodium chloride 0.9 % bolus 1,000 mL (has no administration in time range) MDM: Vital signs are within normal limits on presentation, hemodynamically stable, afebrile. EKG transmitted by EMS is demonstrating SVT, rate in the 170s. Patient spontaneously converted while in route with EMS. Repeat EKG on arrival is demonstrating sinus rhythm, no evidence of ischemia. Patient is reporting that symptoms have resolved and she is feeling well. Clinically she does appear to be dry. Differential includes SVT, SAIGE, UTI, hyperthyroidism. We will obtain lab work, urinalysis. Will give 1 L fluid bolus. SVT with spontaneous conversion to sinus rhythm, no evidence of acute ischemia. Patient is asymptomatic following spontaneous conversion from SVT to sinus rhythm. If lab work, urinalysis is reassuring suspect patient will be stable to follow with cardiology, will be given referral. Patient signed out to Dr. Zapata, pending lab work, urinalysis, reevaluation. CONSULTS: None PROCEDURES: Unless otherwise noted below, none Procedures FINAL IMPRESSION 1. SVT (supraventricular tachycardia) (CMS/HCC) (HCC) DISPOSITION PATIENT REFERRED TO: [facility] Cardiology [address] [facility] [address] Schuyler Cooper MD [address] [facility] [address] [facility] [address] [facility] [address] [facility] [address] As needed, If symptoms worsen DISCHARGE MEDICATIONS: New Prescriptions No medications on file (Comment: Please note this report has been produced using speech recognition software and may contain errors related to that system including errors in grammar, punctuation, and spelling, as well as words and phrases that may be inappropriate. If there are any questions or concerns please feel free to contact the dictating provider for clarification.) Kacie Tristan DO (electronically signed) Emergency Medicine Provider Kacie Tristan DO 02/03/23 0657 [facility] Discharge instructions 04-23-2022 InstructionsAttachments Note Date & Type Note Facility 10-12-2021 Hospital Discharg e instructions Silvestre Torres MD - 10/12/2021 Take medication as prescribed, do not take your lisinopril blood pressure medication, call on Thursday your primary doctor and inform them that we are requesting your blood pressure medication be changed to something other than an RICARDO inhibitor because of the angioedema and swelling of your lips. Return to the ER immediately if you have difficulty breathing worsening swelling swelling or tongue shortness of breath or if there is fever redness swelling your face from the cat bite..... Call your primary physician Dr. Abrams on Thursday morning to discuss change in blood pressure medication and schedule follow-up appointment for wound check of your face on Thursday or Thursday as well. The following attachments cannot be sent through Care Everywhere.Bites: Animal (Faroese)Angioedema (Faroese)documented in this encounter [facility] Work Phone: Clinical Note 08-15-2020 Note Date & Type Note Facility 08-15-2020 Note Patient Outreach ([facility]) HAKEEM GALLEGO ([id number]) 1945 F Date Time Provider Department 08/15/20 RENZO ATWOOD During your visit today, we recorded the following information about you: Allergies As of Date: 08/15/2020 (No Known Allergies) Date Reviewed: 08/08/2018 Reviewed by: Sydnie Osorio) Naveen - Fully Assessed Order(s):SARS-COVID VACCINE 1ST DOSE APPT [[id number]] Order #: [id number] FUTURE Prescriptions as of 08/15/2020 Sig: SIMVASTATIN 10 MG TABLET Take 10 mg by mouth daily at * AMLODIPINE 10 MG TABLET TAKE ONE TABLET BY MOUTH EVER* CALCIUM CARBONATE 600 MG CALC* Take by mouth. CYANOCOBALAMIN (VIT B-12) 1,0* Take by mouth. CHOLECALCIFEROL (VITAMIN D3) * Take by mouth. TURMERIC ORAL Take 1,000 mg by mouth. OMEPRAZOLE 20 MG CAPSULE,CHELSEA* Take 20 mg by mouth. ALBUTEROL SULFATE HFA 90 MCG/* Inhale 2 Puffs as instructed * Problem List As Of Date 08/15/2020 Noted Resolved Bronchiectasis without complication (HCC) [J47.*07/07/2017 Hypertension [I10] 01/25/2015 Osteopenia [M85.80] 01/25/2015 Pure hypercholesterolemia [E78.00] 01/25/2015 Letter Text Encounter Status:Closed by PADMINI ARORA on 08/20/20 [facility] Evaluation note Note Date & Type Note Facility documented in this encounter [facility] Work Phone: Evaluation note Note Date & Type Note Facility documented in this encounter [facility] Work Phone: Evaluation note Note Date & Type Note Facility documented in this encounter [facility] Hospital Discharge instructions Attachments Note Date & Type Note Facility Hospital Discharge instructions The following attachments cannot be sent through Care Everywhere.Paroxysmal Supraventricular Tachycardia Discharge Instructions (Faroese)documented in this encounter [facility] Reason for referral (narrative) Consultation (Routine) - Pending Review Note Date & Type Note Facility Referral ID Status Reason Start Date Expiration Date Visits Requested Visits Authorized [id number] Pending Review Specialty Services Required 02/03/2023 02/03/2024 1 1 [facility] Advance Directives No Advanced Directives Records FoundDocuments on File Type Date Recorded Patient Carpenter 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 Expl 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 ACP-Advance Directive 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 Latest Code Status on File Code Status Date Activated Date Inactivated Comments Full Code 01/05/2018 9:18 AM 01/06/2018 2:46 AM Documents on File Type Date Recorded Patient Carpenter Foreman Expl anation Advance Directives and Living Will Power of Loft Worker Head Latest Code Status on File Code Status Date Activated Date Inactivated Comments Full Code 01/05/2018 9:18 AM 01/06/2018 2:46 AM Summary Purpose Family History No Family History Records FoundNo Family History Records FoundNo Family History Records Found Reason for Referral Status Reason Specialty Diagnoses / Procedures Referre d By Contact Referred To Contact Closed Radiology Diagnoses Cough variant asthma SOB (shortness of breath) Procedures CT CHEST WO CONTRAST Juan Pablo Logan MD [address] [place] [address] Status Reason Specialty Diagnoses / Procedures Re ferred By Contact Referred To Contact Closed Diagnoses Cough variant asthma SOB (shortness of breath) Procedures Full PFT Study With Bronchodilator Juan Pablo Logan MD [address] [place] [address] Juan Pablo Logan MD [address] [facility] [place] [address] [place] [address] Additional Source Comments INFORMATION SOURCE (unrecogn ized section and content) DATE CREATED AUTHOR AUTHOR'S ORGANIZ ATION 10/16/2021 [employer] DATE CREATED AUTHOR AUTHOR'S ORGANIZ ATION 02/13/2023 [facility] Reason for Visit (unrecogniz ed section and content) Reason Comments Rapid Heart Rate Ordered Prescriptions (unrec ognized section and content) Scheduled Active and Recently Administ ered Medications (unrecognized section and content) Linked Groups Order Group 1: Saline lock IV (COMPLETED) Routine, CONTINUOUS, Starting on 10/12/21 at 1715, Until Specified And sodium chloride flush 0.9 % injection 3 mLJump to med 3 mL, IntraVENous, EVERY 8 HOURS, First dose on 10/12/21 at 1713, Until Discontinued
Flush line with 3-5 mL
Scheduled Medication Order 02/01/2023 02/02/2023 02/03/2023 sodium chloride 0.9 % bolus 1,000 mL 1,000 mL, IntraVENous, at 1,000 mL/hr, Administer over 1 Hours, Once, On Thu02/03/23 at 0625, For 1 dose 0625 (Canceled Entry - Provider: Automatic Discharge Provider - Comment: Automatically canceled at discontinue of medication order)0635 (Rate/Dose Verify - Provider: Danyelle Prabhakar RN - Comment: from [facility])0836 (Stopped - Provider: Domi Sr RN) Care Teams (unrecognized sec tion and content) Real Estate Closing Coordinator Relationship Specialty Start Date End Date Schuyler Cooper MD [address] Aguilar [address] [phone] PCP - General Geriatric Medicine 08/01/22 FOR RECORDS PERTAINING TO PATIENTS WHO ARE OR HAVE BEEN ENROLLED IN A CHEMICAL DEPENDENCY/SUBSTANCEABUSE PROGRAM, SOME INFORMATION MAY BE OMITTED. This clinical summary was aggregated from multiple sources. Caution should be exercised in using it in the provision of clinical care. This summary normalizes information from multiple sources, and as a consequence, information in this document may materially change the coding, format and clinical context of patient data. In addition, data may be omitted in some cases. CLINICAL DECISIONS SHOULD BE BASED ON THE PRIMARY CLINICAL RECORDS. [employer] [facility]. provides no warranty or guarantee of the accuracy or completeness of information in this document.
== END | disposition home or self-care (01) ==
LOC: POLAB3 13:22
PROVIDERS: PCP Family Medicine Geriatric Medicine; Visit Provider Family Medicine Geriatric Medicine
DX: I10 Essential (primary) hypertension (principal); E55.9 Vitamin D deficiency, unspecified
CPT/HCPCS: 36415; 80053; 82306; 84443; 85025

== ENCOUNTER → 2024-01-05 | Outpatient (CLI) | payer MEDICARE, SELFPAY ==
[2024-01-05 16:15] LABS: Absolute Lymphocyte Count 1.97 X10^3/uL (0.83-4.51); Absolute Neutrophil Count 4.5 X10^3/uL (2.0-7.7); Basophil# 0.04 X10^3/uL; Basophil% 0.5 % (0-1); Eosinophil# 0.16 X10^3/uL; Eosinophils% 2.1 % (0-5); Hematocrit 44.1 % (37-47); Hemoglobin 14.6 g/dL (12.0-15.0); Lymphocyte # 1.97 X10^3/ul (0.83-4.51); Lymphocyte % 25.7 % (19-41); Mean Corp Hgb Conc 33.1 g/dL (32-36); Mean Corpuscular Hgb 30.6 pg (27.0-32.0); Mean Corpuscular Volume 92.5 fL (81-99); Mean Platelet Vol. 9.2 fl (6.2-12.0); Monocyte# 0.96 X10^3/uL; Monocyte% 12.5 % (0-10); NRBC Flagged by Analyzer 0 % (0-5); Neutrophil % 58.7 % (47-70); Platelet Count 237 K/mm3 (150-450); RBC Distribution Width CV 12.9 % (11.6-14.6); RBC Distribution Width SD 43.8 fl (35.1-43.9); Red Blood Count 4.77 M/mm3 (4.2-5.4); White Blood Count 7.7 K/mm3 (4.4-11.0)
[2024-01-05 16:48] LABS: Vitamin D,25 Hydroxy 34.2 ng/mL
[2024-01-05 16:53] LABS: AST(SGOT) 16 U/L (15-37); Alanine Aminotransfer ALT/SGPT 21 U/L (13-56); Albumin, Serum 3.6 g/dL (3.2-5.0); Alkaline Phosphatase 75 U/L (45-117); Anion Gap 5 (5-15); BUN 16 mg/dL (7-18); BUN/Creat Ratio 15.4 RATIO (10-20); Calcium,Total 9.3 mg/dL (8.5-10.1); Chloride 107 mmol/L (98-107); Creatinine, Serum 1.04 mg/dL (0.55-1.02); EST Glomerular Filtration Rate 55 mL/min (>60); Est Glom Filt Rate - Afr Amer 66 mL/min (>60); Globulin 3.5 g/dL (2.2-4.2); Glucose 87 mg/dL (74-106); Potassium 3.7 mmol/L (3.5-5.1); Protein, Total 7.1 g/dL (6.4-8.2); Sodium Level 141 mmol/L (136-145); Thyroid Stim Hormone (TSH) 0.75 uIU/mL (0.358-3.74)
== END | disposition home or self-care (01) ==
LOC: LAB 15:34
PROVIDERS: PCP Family Medicine Geriatric Medicine; Referring Provider Family Medicine Geriatric Medicine; Visit Provider Family Medicine Geriatric Medicine
DX: I10 Essential (primary) hypertension (principal); E55.9 Vitamin D deficiency, unspecified
CPT/HCPCS: 36415; 80053; 82306; 84443; 85025

== ENCOUNTER → 2024-05-11 | Outpatient (CLI) | payer MEDICARE, SELFPAY ==
--- NOTE | 2024-05-11 16:45 | RAD_ITS ---
STUDY: X-RAY CHEST REASON FOR EXAM: Female, 79 years old. CONGESTION OF RESPIRATORY TRACT TECHNIQUE: PA and lateral views of the chest. COMPARISON: April 09, 2020 FINDINGS: No acute consolidation or infiltrates. Redemonstration of moderate cystic emphysematous changes and interstitial fibrosis of both lungs. There is no demonstrated pleural abnormality. Normal size heart. Normal mediastinum and twila. Normal visualized pulmonary arteries. There is atherosclerotic calcification of the aortic arch with tortuosity. There are diffuse degenerative changes of the visualized thoracic spine. Normal visualized ribs, clavicles, and shoulders. There is no demonstrated abnormality of the visualized soft tissue structures of the upper abdomen. Right upper quadrant surgical clips are present. RAD/Chest PA and Lateral IMPRESSION: 1. COPD/emphysema Electronically Signed: Filippo Rhoades MD at 11:00 EST ,
== END | disposition home or self-care (01) ==
LOC: RAD 16:43
PROVIDERS: PCP Family Medicine Geriatric Medicine; Referring Provider Family Medicine Geriatric Medicine; Visit Provider Family Medicine Geriatric Medicine
DX: J98.8 Other specified respiratory disorders (principal)
CPT/HCPCS: 71046

== ENCOUNTER → 2024-12-16 | Outpatient (CLI) | payer MEDICARE, SELFPAY ==
--- NOTE | 2024-12-16 11:30 | RAD_ITS ---
EXAM: XR Right Knee, 3 Views CLINICAL INDICATION: KNEE PAIN TECHNIQUE: Three views of the right knee. COMPARISON: No relevant prior studies available. FINDINGS: BONES/JOINTS: Moderate degenerative changes of the medial compartment of the knee joint. No acute fracture. No dislocation. SOFT TISSUES: Unremarkable. RAD/Knee 3 Views IMPRESSION: Degenerative changes as above. Reading Location: [id number]
--- NOTE | 2024-12-16 11:30 | RAD_ITS ---
EXAM: XR Left Elbow Complete, 3 or More Views CLINICAL INDICATION: ELBOW PAIN TECHNIQUE: Frontal, lateral and oblique views of the left elbow. COMPARISON: No relevant prior studies available. FINDINGS: BONES/JOINTS: Unremarkable. No acute fracture. No dislocation. SOFT TISSUES: Unremarkable. RAD/Elbow min 3 Views IMPRESSION: No acute fracture. Reading Location: [id number]
--- OUTSIDE RECORDS SUMMARY | 2024-12-16 18:53 | XMS RPT_ITS | CCD ---
Author Organization [facility] Care Team Providers Care Clinic Specialist Name Role Phone Geovannajudrobellucas Nola Primary Care Provider Kenneth SCHMIDT, Schuyler Primary Care Provider TATI DIETZ Referring Unavailable SCHUYLER LONGORIA Primary Care Unavailable KENNETH, SCHUYLER Primary Care Unavailable KACIE TRISTAN Attending Unavailable KENNETH, SCHUYLER Primary Care Unavailable TATI DIETZ Attending Unavailable Dr. Gary Longoria Chi Primary Care Provider [phone] Kenneth, Dr. Gary Patrick Referring Provider Irvin, Dr. Davalos Attending Provider Irvin, Dr. Davalos Referring Provider Irvin, Dr. Davalos Other Provider Roof SPA THERAPIST, CARLA-Paulo Cabrera Attending Provider Dr. Gary Longoria Chi Primary Care Provider [phone] Gary Longoria Chi Referring Provider [phone]([facility])[phone] Irvin, Dr. Davalos Attending Provider Irvin, Dr. Davalos Referring Provider Irvin, Dr. Davalos Other Provider Roof SPA THERAPIST, SPA THERAPIST-Paulo Cabrera Attending Provider Dr. Gary Longoria Chi Primary Care Provider Irvin, Dr. Davalos Attending Provider Roof SPA THERAPIST, SPA THERAPIST-Paulo Cabrera Referring Provider Roof SPA THERAPIST, SPA THERAPIST-Paulo Cabrera Other Provider Dr. Paresh Davidson Attending Provider SpoNola oviedo Primary Care Provider Unavailable Nola Zamora MD Primary Care Provi nely Unavailable SPONOLA OVIEDO Primary Care Unava ilable SELF Referring Unavailable NOLA ZAMORA HEMANT Primary Care Unava ilable PROVIDER, UNKNOWN Referring Unavailable [facility]N [facility] Primary Care Unava ilable Kenneth SCHMIDT, Gary-Chi Primary Care Provider Kenneth, Gary Chi Referring Unavailable Kenneth, Gary Chi Primary Care Unavailable Kenneth, Gary Chi Attending Unavailable Kenneth, Gary Chi Primary Care Unavailable Kenneth, Gary Chi Attending Unavailable Kenneth, Gary Chi Referring Unavailable Kenneth, Gary Chi Primary Care Unavailable Kenneth, Gary Chi Attending Unavailable Kenneth, Gary Chi Referring Unavailable Kenneth, Gary Chi Primary Care Unavailable Rc Taylor Attending Unavail able Kenneth, Gary Chi Referring Unavailable Kenneth, Gary Chi Primary Care Unavailable Alexander Vigil Attending Unavailable Allergies Allergy Classification Reported Allergen(s) Allergy Type Date of Onset Reaction(s) Facility (7 sources) Lisinopril; Translations: [LISINOPRIL] Allergy to substance 3 Angioedema [facility] (7 sources) Lisinopril Drug Allergy 3 Angioedema, Swelling [facility] (1 source) Lisinopril Drug Allergy 3 [facility] Repository Medications Current Medications Medication Drug Class(es) Dates Sig (Normalized) Sig (Original) [id number] 200 actuat albuterol 0.09 mg/actuat metered dose inhaler (9 sources) beta2-Adrenergic Agonist Start: 04-25-2024 take 2 puff(s) by inhalation every four hours as needed for cough albuterol HFA (PROVENTIL HFA, VENTOLIN HFA) 90 mcg/actuation inhaler Indications: Acute cough Inhale 2 Puffs as instructed every 4 hours as needed for wheezing/shortnes s of breath (cough). 18 g 04/25/2024 Active Start: 06-07-2019 End: 06-07-2019 albuterol sulfate HFA 108 (9 0 Base) MCG/ACT inhaler 4 puff Start: 08-08-2018 End: 04-25-2024 take 2 puff(s) by inhalation every four hours as needed for cough albuterol HFA (PROVENTIL HFA, VENTOLIN HFA) 90 mcg/actuation inhaler Indications: Bronchiectasis with acute exacerbation (HCC) Inhale 2 Puffs as instructed every 4 hours as needed for Wheezing/Shortness of Breath. Or cough 1 Inhaler 08/08/2018 04/25/2024 Discontinued (Other) Comment on above: Inhale 2 Puffs as in structed every 4 hours as needed for Wheezing/Shortness of Breath. Or cough amLODIPine 5 mg oral tablet (15 sources) Dihydropyridine Calcium Channel Bronson Start: 01-08-20 take 5 mg by mouth once daily Amlodipine Active 5 MG PO DAILY January 06, 2023 11:00pm Start: 11-10-2017 take 1 tablet by kameron th once daily amLODIPine (NORVASC) 10 mg tablet TAKE ONE TABLET BY MOUTH EVERY DAY 11/10/2017 Active Comment on above: TAKE ONE TABLET BY M OUTH EVERY DAY amoxicillin 875 mg / clavulanate 125 mg oral tablet (1 source) Penicillin-class Antibacterial Start: 2021 End: 2021 take 1 tablet by mouth twice daily amoxicillin-clavulanate (AUGMENTIN) 875-125 MG per tablet Take 1 tablet by mouth 2 times daily for 10 days 20 tablet 0 10/12/2021 10/22/2021 Active doxycycline monohydrate 100 mg oral tablet (1 source) Tetracycline-class Drug Start: 2023 End: 2023 take 1 tablet by mouth twice daily doxycycline monohydrate 100 mg tablet Take 1 tablet by mouth two times a day for 7 days. 14 tablet 04/26/2024 05/03/2024 Active linseed oil 1000 mg oral capsule (3 sources) take 1 capsule by mouth once daily Flaxseed, Linseed, (FLAX SEED OIL) 1000 MG CAPS Take 1,000 mg by mouth daily 0 Active methylPREDNISolone (5 sources) Corticosteroid Start: 2023 End: 2023 methylPREDNISolone (MEDROL, CHRISTIANO,) 4 mg Dose-Pack Indications: Acute cough Take as instructed per package. 21 tablet 04/25/2024 05/01/2024 Active Start: 10-12-2021 End: 10-18-2021 methylPREDNISolone (MEDROL, CHRISTIANO,) 4 MG tablet Take by mouth. 1 kit 0 10/12/2021 10/18/2021 Active metoprolol tartrate 25 mg oral tablet (16 sources) beta-Adrenergic Bronson Start: 06-06-2023 take 1 tablet by mouth every twelve hours metoprolol tartrate, short acting, (LOPRESSOR) 25 mg tablet Take 1 tablet by mouth every 12 hours. 06/06/2023 Active Start: 02-17-2023 End: 02-17-2023 take 25 mg by mouth twice daily Metoprolol Tartrate Active 25 MG PO TWICE A DAY 180 February 17, 2023 10:46am Start: 02-17-2023 End: 02-17-2023 take 12.5 mg by mouth twice daily Metoprolol Tartrate Discontinued 12.5 MG PO TWICE A DAY February 16, 2023 11:00pm February 17, 2023 10:46am Comment on above: Take 1 tablet by kameron th every 12 hours. montelukast 10 mg oral tablet (3 sources) Leukotriene Receptor Antagonist Start: 9 take 1 tablet by mouth once daily montelukast (SINGULAIR) 10 MG tablet Take 1 tablet by mouth daily 30 tablet 3 05/09/2019 Active simvastatin 40 mg oral tablet (7 sources) HMG-CoA Reductase Inhibitor Start: 9 take 1 tablet by mouth once daily simvastatin (ZOCOR) 40 MG tablet TAKE ONE TABLET BY MOUTH EVERY DAY 90 tablet 0 08/19/2018 Active End: 04-25-2024 take 1 tablet by mouth once daily at bedtime simvastatin (ZOCOR) 10 mg tablet Take 10 mg by mouth daily at bedtime. 04/25/2024 Discontinued (Other) Comment on above: Take 10 mg by mouth daily at bedtime. sodium chloride flush 0.9 % injection 3 mL (1 source) Start: 10-12-2021 sodium chloride flush 0.9 % injection 3 mL vitamin b12 1 mg oral tablet (12 sources) Vitamin B12 cyanocobalamin ( VITAMIN B-12) 1,000 mcg tab Take by mouth. Active Comment on above: Take by mouth. vitamin d 1000 unt oral tablet (1 source) take 1 tablet by mouth once daily vitamin D (CHOLECALCIFEROL) 1000 UNIT TABS tablet Take 1,000 Units by mouth daily 0 Active Completed/Discontinued Medications Medication Drug Class(es) Dates Sig (Normalized) Sig (Original) benzonatate 100 mg oral capsule (10 sources) Non-narcotic Antitussive Start: 08-03-2023 End: 04-25-2024 take 1 capsule by mouth three times daily as needed for cough benzonatate (TESSALON PERLES) 100 mg capsule Indications: URI, acute Take 1 capsule by mouth three times a day as needed for cough. 21 capsule 08/03/2023 04/25/2024 Discontinued (Other) Start: 01-07-2023 End: 02-17-2023 take 200 mg by mouth three times daily Benzonatate Discontinued 200 MG PO THREE TIMES A DAY January 06, 2023 11:00pm February 17, 2023 10:13am Start: 08-12-2018 take 1 capsule by mo uth three times daily as needed for cough benzonatate (TESSALON) 100 MG capsule Indications: Bronchiectasis without complication (HCC) Take 1 capsule by mouth 3 times daily as needed for Cough 20 capsule 1 08/12/2018 Active Comment on above: Take 1 capsule by mo uth three times a day as needed for cough. calcium carbonate 1500 mg oral tablet (7 sources) End: calcium carbonate (CALTRATE) 600 mg calcium (1,500 mg) tab Take by mouth. 04/25/2024 Discontinued (Other) Comment on above: Take by mouth. cetirizine hydrochloride 10 mg oral tablet (12 sources) Histamine-1 Receptor Antagonist Start: 3 End: 3 take 1 tablet by mouth once daily Cetirizine (Zyrtec) 10 mg tablet Discontinued 10 MG PO DAILY January 06, 2023 11:00pm February 17, 2023 10:13am End: 02-03-2023 cetirizine (ZyrTEC) 10 MG ta blet Take 5 mg by mouth. 0 02/03/2023 Discontinued cholecalciferol 0.025 mg oral tablet (8 sources) Vitamin D End: 04-25-2024 cholecalciferol (VITAMIN D) 1,000 unit tab tablet Take by mouth. 04/25/2024 Discontinued (Other) take 1 tablet by mouth once oleksandr y cholecalciferol (Vitamin D-3) 25 MCG (1000 UT) tablet Take 1,000 Units by mouth daily. 0 Active Comment on above: Take by mouth. 1 ml dexamethasone phosphate 10 mg/ml injection (1 source) Corticosteroid Start: 10-12-2021 End: 10-12-2021 dexamethasone (PF) (DECADRON) injection 10 mg 1 ml diphenhydrAMINE hydrochloride 50 mg/ml cartridge (2 sources) Histamine-1 Receptor Antagonist Start: 10-12-2021 End: 10-12-2021 diphenhydrAMINE (BENADRYL) injection 25 mg Start: 10-12-2021 End: 10-17-2021 take 1 capsule by mouth four times daily diphenhydrAMINE (BENADRYL) 50 MG capsule Take 1 capsule by mouth 4 times daily for 5 days 20 capsule 0 10/12/2021 10/17/2021 Active famotidine 40 mg oral tablet (4 sources) Histamine-2 Receptor Antagonist Start: 01-07-2023 End: 02-17-2023 take 40 mg by mouth once daily Famotidine Discontinued 40 MG PO DAILY January 06, 2023 11:00pm February 17, 2023 10:13am Start: 10-12-2021 take 1 tablet by kameron th once daily famotidine (PEPCID) 40 MG tablet Take 1 tablet by mouth daily 7 tablet 0 10/12/2021 Active famotidine (PEPCID) 20 mg in sodium chloride (PF) 10 mL injection (1 source) Start: 10-12-2021 End: 10-12-2021 famotidine (PEPCID) 20 mg in sodium chloride (PF) 10 mL injection fluticasone propionate 0.05 mg/actuat metered dose nasal spray (4 sources) Corticosteroid Start: 08-03-2023 End: 04-25-2024 take 1 spray(s) nasal route once daily fluticasone (FLONASE ALLERGY RELIEF) 50 mcg/actuation nasal spray Use 1 [place] in each nostril once daily. 11.1 mL 08/03/2023 04/25/2024 Discontinued (Other) Comment on above: Use 1 [place] in each nostril once daily. 12 hr guaiFENesin 600 mg extended release oral tablet (4 sources) Start: 08-03-2023 End: 04-25-2024 take 2 tablets by mouth twice daily as needed guaiFENesin (MUCINEX) 600 mg 12 hr tablet Indications: URI, acute Take 2 tablets by mouth two times a day as needed for cold/allergy symptoms. 08/03/2023 04/25/2024 Discontinued (Other) Comment on above: Take 2 tablets by mo uth two times a day as needed for cold/allergy symptoms. omeprazole 20 mg delayed release oral capsule (7 sources) Proton Pump Inhibitor End: 04-25-2024 omeprazole (PRILOSEC) 20 mg capsule Take 20 mg by mouth. 04/25/2024 Discontinued (Other) Comment on above: Take 20 mg by mouth. 50 ml sodium chloride 9 mg/ml injection (2 sources) Start: 02-03-2023 End: 02-03-2023 sodium chloride 0.9 % bolus 1,000 mL tranexamic acid (CYKLOKAPRON) 1,000 mg in sodium chloride 0.9 % 50 mL IVPB (1 source) Start: 10-12-2021 End: 10-12-2021 tranexamic acid (CYKLOKAPRON) 1,000 mg in sodium chloride 0.9 % 50 mL IVPB Turmeric extract (7 sources) End: 04-25-2024 TURMERIC ORAL Take 1,000 mg by mouth. 04/25/2024 Discontinued (Other) TURMERIC ORAL Ta ke 1,000 mg by mouth. 0 Active Turmeric 1053 MG TABS Take 1,000 mg by mouth daily 0 Active Comment on above: Take 1,000 mg by kameron th. Problems Active Problems Problem Classification Problem Date Documented Date Episodic/Chronic Asthma (1 source) Cough variant asthma Chronic Cardiac dysrhythmias (9 sources) Supraventricular tachycardia; Translations: [Supraventricular tachycardia] Onset: 02-03-2023 02-03-2023 Chronic Cardiac dysrhythmias (3 sources) Palpitations; Translations: [Palpitations] 01-07-2023 Episodic Chronic obstructive pulmonary disease and bronchiectasis (16 sources) Bronchiectasis; Translations: [Bronchiectasis, uncomplicated] Onset: 07-07-2017 07-07-2017 Chronic Disorders of lipid metabolism (20 sources) Pure hypercholesterolemia; Translations: [Pure hypercholesterolemia, unspecified] Onset: 01-25-2015 01-25-2015 Chronic E Codes: Natural/environment (1 source) Cat bite - wound; Translations: [Bitten by cat, initial encounter] Episodic Essential hypertension (20 sources) Hypertensive disorder; Translations: [Essential (primary) hypertension] Onset: 01-25-2015 01-25-2015 Chronic Nonspecific chest pain (7 sources) Chest pain, unspecified; Translations: [Chest pain] Onset: 08-01-2022 Episodic Other injuries and conditions due to external causes (1 source) Angioedema; Translations: [Angioneurotic edema, initial encounter] Episodic Other lower respiratory disease (1 source) Cough; Translations: [Acute cough] 04-25-2024 Episodic Other lower respiratory disease (1 source) Other specified respiratory disorders; Translations: [Other specified respiratory disorders] Onset: 06-09-2024 Episodic Other screening for suspected conditions (not mental disorders or infectious disease) (2 sources) Cardiovascular stress test abnormal; Translations: [Abnormal result of other cardiovascular function study] 03-23-2023 Episodic Other upper respiratory infections (1 source) Acute upper respiratory infection; Translations: [Acute upper respiratory infection, unspecified] 08-03-2023 Episodic Past or Other Problems Problem Classification Problem Date Documented Da te Episodic/Chronic Other bone disease and musculoskeletal deformities (16 sources) Osteopenia; Translations: [Other specified disorders of bone density and structure, unspecified site] Onset: 01-25-2015 01-25-2015 Episodic Other lower respiratory disease (1 source) Dyspnea Episodic Residual codes; unclassified (9 sources) Dependent edema; Translations: [Edema, unspecified] Onset: 09-21-2018 09-21-2018 Episodic Results Test Name Value Interpretation Reference Range Facility Chest PA and Lateralon 05-11 Chest PA and Lateral [facility] Imaging Services [address], [place] [id number] Chest PA and Lateral MR#: [id number] Acct: [id number] Name: HAKEEM GALLEGO Rep #: [id number] : 1945 F 79 From: Filippo foster MD PCP: Dr. Gary Longoria MD Status: [facility] Study: Chest PA and Lateral Date of Exam: 05/11/24 Exam# [id number] Ordering [place]: [place] [id number] STUDY: X-RAY CHEST REASON FOR EXAM: Female, 79 years old. CONGESTION OF RESPIRATORY TRACT TECHNIQUE: PA and lateral views of the chest. COMPARISON: April 09, 2020 FINDINGS: No acute consolidation or infiltrates. Redemonstration of moderate cystic emphysematous changes and interstitial fibrosis of both lungs. There is no demonstrated pleural abnormality. Normal size heart. Normal mediastinum and twila. Normal visualized pulmonary arteries. There is atherosclerotic calcification of the aortic arch with tortuosity. There are diffuse degenerative changes of the visualized thoracic spine. Normal visualized ribs, clavicles, and shoulders. There is no demonstrated abnormality of the visualized soft tissue structures of the upper abdomen. Right upper quadrant surgical clips are present. RAD/Chest PA and Lateral IMPRESSION: 1. COPD/emphysema Electronically Signed: Filippo Rhoades MD at 11:00 EST Reading Location ID and State: [facility] / [place] , Service support , CC: Dr. Gary Longoria MD Clinical Social Worker: Signed [facility] 04-26-2024 [facility] Telephone (YANGWA) HAKEEM GALLEGO ([id number]) 1945 F Date Time Provider Department 04/26/24 JIM CHAVEZ During your visit today, we recorded the following information about you: Jim Chavez, ARSENIO 04/26/2024 7:23 AM Signed Please call the patient and inform them that- Please be aware that your COVID-19, influenza, and RSV test is negative. Please continue the plan of care as discussed at your clinic visit. Follow up with your primary care physician for any new or persisting fever or worsening or changing symptoms. Please refrain from work/school and isolate yourself until - -At least 24 hours have passed since last fever without the use of fever-reducing medications Jim Chavez PA-C Allergies As of Date: 04/26/2024 Noted Allergy Reaction LISINOPRIL 08/01/2022 18 - Angioedema 7 - Swelling Date Reviewed: 04/25/2024 Reviewed by: Axel Mendieta - Fully Assessed Reason for Visit: Results [95] Prescriptions as of 04/26/2024 - methylPREDNISolone (MEDROL, CHRISTIANO,) 4 mg Dose-Pack Take as instructed per package. - albuterol HFA (PROVENTIL HFA, VENTOLIN HFA) 90 mcg/actuation inhaler Inhale 2 Puffs as instructed every 4 hours as needed for wheezing/shortness of breath (cough). - metoprolol tartrate, short acting, (LOPRESSOR) 25 mg tablet Take 1 tablet by mouth every 12 hours. - amLODIPine (NORVASC) 10 mg tablet TAKE ONE TABLET BY MOUTH EVERY DAY - cyanocobalamin (VITAMIN B-12) 1,000 mcg tab Take by mouth. Problem List As Of Date 04/26/2024 Noted Resolved Bronchiectasis without complication (HCC) [J47.*07/07/2017 Hypertension [I10] 01/25/2015 Osteopenia [M85.80] 01/25/2015 Pure hypercholesterolemia [E78.00] 01/25/2015 Encounter Status:Closed by DAMRAIS VAZQUEZ on 04/26/24 [facility] ([id number]) 1945 F Date Time Provider Department 04/26/24 CYNTHIA VARMACO During your visit today, we recorded the following information about you: Cynthia Varma, PA-C 04/26/2024 3:28 PM Signed Spoke to patient. Informed her of x-ray findings. Prescription for doxycycline sent to pharmacy. Allergies As of Date: 04/26/2024 Noted Allergy Reaction LISINOPRIL 08/01/2022 18 - Angioedema 7 - Swelling Date Reviewed: 04/25/2024 Reviewed by: Axel Mendieta - Fully Assessed Reason for Visit: Results [95] Order(s):doxycycline monohydrate 100 mg tabletTake 1 tablet by mouth two times a day for 7 days.Disp: 14 tabletRfl: 0 Prescriptions as of 04/26/2024 - doxycycline monohydrate 100 mg tablet Take 1 tablet by mouth two times a day for 7 days. - methylPREDNISolone (MEDROL, CHRISTIANO,) 4 mg Dose-Pack Take as instructed per package. - albuterol HFA (PROVENTIL HFA, VENTOLIN HFA) 90 mcg/actuation inhaler Inhale 2 Puffs as instructed every 4 hours as needed for wheezing/shortness of breath (cough). - metoprolol tartrate, short acting, (LOPRESSOR) 25 mg tablet Take 1 tablet by mouth every 12 hours. - amLODIPine (NORVASC) 10 mg tablet TAKE ONE TABLET BY MOUTH EVERY DAY - cyanocobalamin (VITAMIN B-12) 1,000 mcg tab Take by mouth. Problem List As Of Date 04/26/2024 Noted Resolved Bronchiectasis without complication (HCC) [J47.*07/07/2017 Hypertension [I10] 01/25/2015 Osteopenia [M85.80] 01/25/2015 Pure hypercholesterolemia [E78.00] 01/25/2015 Prescriptions ordered this encounter Disp Refills Start End DOXYCYCLINE MONOHYDRATE 100 MG TABLET 14 t* 0 04/26/2024 05/03/2024 Route: ORAL Sig: Take 1 tablet by mouth two times a day for 7 days. Encounter Status:Closed by CYNTHIA VARMA on 04/26/24 Normal [facility] XR CHEST 2V FRONTAL/LATon XR CHEST 2V FRONTAL/LAT * * *Final Repor t* * * DATE OF EXAM: Apr 26 2024 3:17PM MDO 5291 - XR CHEST 2V FRONTAL/LAT / PROCEDURE REASON: R05.1-Acute cough * * * * Physician Interpretation * * * * EXAMINATION: CHEST RADIOGRAPH (2 VIEW FRONTAL and LATERAL) CLINICAL HISTORY: Acute cough MQ: XC2_6 EXAM DATE/TIME: 04/26/2024 3:17 PM COMPARISON: No relevant prior studies available. RESULT: Lines, tubes, and devices: None. Lungs and pleura: There may be a small amount of atelectasis/infiltrate RIGHT lung base medially. No other focal consolidation. No lung mass. No pleural effusion. No pneumothorax. Cardiomediastinal silhouette: Normal cardiomediastinal silhouette. Bones and soft tissues: Unremarkable. IMPRESSION: Suggestion of some RIGHT lung base atelectasis/infiltrate Clinical Social Worker: REGAN Transcribe Date/Time: Apr 26 2024 3:23P Dictated by : AVERY RAUSCH DO This examination was interpreted and the report reviewed and electronically signed by: AVERY RAUSCH DO on Apr 26 2024 3:23PM EST [id number] [facility] XR Chest PA and Lateralon IMPRESSION: Suggestion of some RIGHT lung base atelectasis/infiltrate Clinical Social Worker: PSCReynold Transcribe Date/Time: Apr 26 2024 3:23P Dictated by : AVERY RAUSCH DO This examination was interpreted and the report reviewed and electronically signed by: AVERY RAUSCH DO on Apr 26 2024 3:23PM EST [facility] * * *Final Report* * * DATE OF EXAM: Apr 26 2024 3:17PM MDO 5291 - XR CHEST 2V FRONTAL/LAT / PROCEDURE REASON: R05.1-Acute cough * * * * Physician Interpretation * * * * EXAMINATION: CHEST RADIOGRAPH (2 VIEW FRONTAL & LATERAL) CLINICAL HISTORY: Acute cough MQ: XC2_6 EXAM DATE/TIME: 04/26/2024 3:17 PM COMPARISON: No relevant prior studies available. RESULT: Lines, tubes, and devices: None. Lungs and pleura: There may be a small amount of atelectasis/infiltrate RIGHT lung base medially. No other focal consolidation. No lung mass. No pleural effusion. No pneumothorax. Cardiomediastinal silhouette: Normal cardiomediastinal silhouette. Bones and soft tissues: Unremarkable. [facility] Provider, Kari Butt - 04/26/2024 * * *Final Report* * * DATE OF EXAM: Apr 26 2024 3:17PM TRI 5291 - XR CHEST 2V FRONTAL/LAT / PROCEDURE REASON: R05.1-Acute cough * * * * Physician Interpretation * * * * EXAMINATION: CHEST RADIOGRAPH (2 VIEW FRONTAL & LATERAL) CLINICAL HISTORY: Acute cough MQ: XC2_6 EXAM DATE/TIME: 04/26/2024 3:17 PM COMPARISON: No relevant prior studies available. RESULT: Lines, tubes, and devices: None. Lungs and pleura: There may be a small amount of atelectasis/infiltrate RIGHT lung base medially. No other focal consolidation. No lung mass. No pleural effusion. No pneumothorax. Cardiomediastinal silhouette: Normal cardiomediastinal silhouette. Bones and soft tissues: Unremarkable. IMPRESSION IMPRESSION: Suggestion of some RIGHT lung base atelectasis/infiltrate Clinical Social Worker: PSCReynold Transcribe Date/Time: Apr 26 2024 3:23P Dictated by : AVERY RAUSCH DO This examination was interpreted and the report reviewed and electronically signed by: AVERY RAUSCH DO on Apr 26 2024 3:23PM [facility] Radiology Study observation (narrative) Delisa alvarado [facility] XR Chest PA and LateralOrder ed By: Kari Provider on 04-26-2024 [facility] CNOVon 04-25-2024 CNOV Office Visit (YANGWA ) HAKEEM GALLEGO ([id number]) 1945 F Date Time Provider Department 04/25/24 4:30 PM WILIAN SOLORZANO During your visit today, we recorded the following information about you: Temperature Pulse Respiration Blood pressure 98 degrees 69/minute 18/minute 81/64 Weight Height 73.1 kg 1.6 m Wilian Solorzano PA-C 04/25/2024 5:03 PM Signed Hakeem Gallego is a 79 year old female Patient presents with: Cough: Pt is here thinking that she has bronchitis, coughing, has taken cough drops, Cough 2 weeks Denies fevers Denies runny nose Denies sinus congestion or sore throat She states I only have a cough No past medical history on file. Social History Tobacco Use Smoking status: Never Smokeless tobacco: Never Current Outpatient Medications on File Prior to Visit Medication Sig metoprolol tartrate, short acting, (LOPRESSOR) 25 mg tablet Take 1 tablet by mouth every 12 hours. amLODIPine (NORVASC) 10 mg tablet TAKE ONE TABLET BY MOUTH EVERY DAY cyanocobalamin (VITAMIN B-12) 1,000 mcg tab Take by mouth. No current facility-administered medications on file prior to visit. Lisinopril Physical Exam: BP 81/64 (BP Site: Left Arm, BP Position: Sitting, BP Cuff Size: Regular Adult) Pulse 69 Temp 36.7 ?C (98 ?F) (Left Tympanic) Resp 18 Ht 160 cm (5' 3) Wt 73.1 kg (161 lb 0.7 oz) SpO2 95% BMI 28.53 kg/m? GEN: Pleasant female in no acute distress HEENT: Normocephalic/atraumati c; pupils equal, round and reactive; extra-ocular movements intact, mucous membranes moist, oropharynx clear, tympanic membranes clear, external auditory canals clear, nares clear. NECK: Supple without lymphadenopathy, thyromegaly, or mass. CARDIO: Heart with a regular rate and rhythm without murmurs, rubs, or gallops. Normal S1/S2. LUNGS: Clear to auscultaition bilaterally without wheezes, ronchi, or rales. Good air movement. ASSESSMENT/PLAN: 1. Acute cough - ICD9: 786.2, ICD10: R05.1 - XR CHEST 2V FRONTAL/LAT - METHYLPREDNISOLONE 4 MG TABLETS IN A DOSE PACK - ALBUTEROL SULFATE HFA 90 MCG/ACTUATION AEROSOL INHALER - COVID AND INFLUENZA A/B AND RSV PCR, ROUTINE Wilian Solorzano Referring Provider: SELF [200] Allergies As of Date: 04/25/2024 Noted Allergy Reaction LISINOPRIL 08/01/2022 18 - Angioedema 7 - Swelling Date Reviewed: 04/25/2024 Reviewed by: Axel Mendieta - Fully Assessed Reason for Visit: Cough [28] Cmt: Pt is here thinking that she has bronchitis, coughing, has taken cough drops, Primary Visit Diagnosis:Acute cough [R05.1] Order(s):XR CHEST 2V FRONTAL/LAT [9034790] Order #: [id number] methylPREDNISolone (MEDROL, CHRISTIANO,) 4 mg Dose-PackTake as instructed per package.Disp: 21 tabletRfl: 0 albuterol HFA (PROVENTIL HFA, VENTOLIN HFA) 90 mcg/actuation inhalerInhale 2 Puffs as instructed every 4 hours as needed for wheezing/shortness of breath (cough).Disp: 18 gRfl: 0 COVID AND INFLUENZA A/B AND RSV PCR, ROUTINE [SQCVFLRS] Order #: [id number]. #:[id number] Prescriptions as of 04/25/2024 - methylPREDNISolone (MEDROL, CHRISTIANO,) 4 mg Dose-Pack Take as instructed per package. - albuterol HFA (PROVENTIL HFA, VENTOLIN HFA) 90 mcg/actuation inhaler Inhale 2 Puffs as instructed every 4 hours as needed for wheezing/shortness of breath (cough). - metoprolol tartrate, short acting, (LOPRESSOR) 25 mg tablet Take 1 tablet by mouth every 12 hours. - amLODIPine (NORVASC) 10 mg tablet TAKE ONE TABLET BY MOUTH EVERY DAY - cyanocobalamin (VITAMIN B-12) 1,000 mcg tab Take by mouth. Problem List As Of Date 04/25/2024 Noted Resolved Bronchiectasis without complication (HCC) [J47.*07/07/2017 Hypertension [I10] 01/25/2015 Osteopenia [M85.80] 01/25/2015 Pure hypercholesterolemia [E78.00] 01/25/2015 Prescriptions ordered this encounter Disp Refills Start End METHYLPREDNISOLONE 4 MG TABLETS IN A* 21 t* 0 04/25/2024 05/01/2024 Sig: Take as instructed per package. ALBUTEROL SULFATE HFA 90 MCG/ACTUATI* 18 g 0 04/25/2024 Cmt: Generic or brand: dispense inhaler preferred by patient/insurance unless OLU flag is selected. Route: INHALATION Sig: Inhale 2 Puffs as instructed every 4 hours as needed for wheezing/shortness of breath (cough). Medications Discontinued During This Encounter Prescriptions - TURMERIC ORAL (Discontinued) Reported on 04/25/2024 - simvastatin (ZOCOR) 10 mg tablet (Discontinued) Reported on 08/03/2023 - omeprazole (PRILOSEC) 20 mg capsule (Discontinued) Reported on 08/03/2023 - guaiFENesin (MUCINEX) 600 mg 12 hr tablet (Discontinued) Reported on 04/25/2024 - fluticasone (FLONASE ALLERGY RELIEF) 50 mcg/actuation nasal spray (Discontinued) Reported on 04/25/2024 - cholecalciferol (VITAMIN D) 1,000 unit tab tablet (Discontinued) Reported on 08/03/2023 - calcium carbonate (CALTRATE) 600 mg calcium (1,500 mg) tab (Discontinued) (more content not included)... Normal [facility] COVID AND INFLUENZA A/B AND RSV PCR, ROUTINEon 04-25-2024 SARS-CoV-2 (COVID-19) RNA MARLYN+probe Ql (Unsp spec) SARS-COV-2 (AGENT OF COVID-19) RNA: Not detected INFLUENZA A RNA: Not detected INFLUENZA B RNA: Not detected RESPIRATORY SYNCYTIAL VIRUS (RSV) RNA: Not detected Normal [facility] Comment on above: Performed By: #### C VFLRS #### [facility] CLIA [id number] [address] [place] [address] [place] CBC W/Diff, Automatedon 07- Absolute Lymph 1.97 X10 3/uL Normal 0.83-4.51 [facility] Comment on above: Performed By: #### L 501.9520, L500.4050, L100.0100, L506.1000 #### [facility] [address] [place], [address] Absolute Neut 4.5 X10 3/uL Normal 2.0-7.7 [facility] Comment on above: Performed By: #### L 501.9520, L500.4050, L100.0100, L506.1000 #### [facility] [address] [place], [address] Basophils/100 WBC (Bld) 0.5 % Normal 0-1 [facility] Comment on above: Performed By: #### L 501.9520, L500.4050, L100.0100, L506.1000 #### [facility] [address] [place], [address] Eosinophils/100 WBC (Bld) 2.1 % Normal 0-5 [facility] Comment on above: Performed By: #### L 501.9520, L500.4050, L100.0100, L506.1000 #### [facility] [address] [place], [address] Erythrocyte distribution width (RBC) [Ratio] 12.9 % Normal 11.6-14.6 [facility] Comment on above: Performed By: #### L 501.9520, L500.4050, L100.0100, L506.1000 #### [facility] [address] [place], [address] Hematocrit (Bld) [Volume fraction] 44.1 % Normal 37-47 [facility] Comment on above: Performed By: #### L 501.9520, L500.4050, L100.0100, L506.1000 #### [facility] [address] [place], [address] Hemoglobin (Bld) [Mass/Vol] 14.6 g/dL Normal 12.0-15.0 [facility] Comment on above: Performed By: #### L 501.9520, L500.4050, L100.0100, L506.1000 #### [facility] [address] [place], [address] IG% 0.500 Normal 0.0-0.9 [facility] Comment on above: Result Comment: IG% - Immature Granulocytes (promyelocytes, myelocytes and metamyelocytes) > 1% indicates that a LEFT SHIFT is Present. Performed By: #### L 501.9520, L500.4050, L100.0100, L506.1000 #### [facility] [address] [place], [address] Lymphocytes/100 WBC (Bld) 25.7 % Normal 19-41 [facility] Comment on above: Performed By: #### L 501.9520, L500.4050, L100.0100, L506.1000 #### [facility] [address] [place], [address] MCH (RBC) [Entitic mass] 30.6 pg Normal 27.0-32.0 [facility] Comment on above: Performed By: #### L 501.9520, L500.4050, L100.0100, L506.1000 #### [facility] [address] [place], [address] MCHC (RBC) [Mass/Vol] 33.1 g/dL Normal 32-36 [facility] Comment on above: Performed By: #### L 501.9520, L500.4050, L100.0100, L506.1000 #### [facility] [address] [place], [address] MCV (RBC) [Entitic vol] 92.5 fL Normal 81-99 [facility] Comment on above: Performed By: #### L 501.9520, L500.4050, L100.0100, L506.1000 #### [facility] [address] [place], [address] Monocytes/100 WBC (Bld) 12.5 % High 0-10 [facility] Comment on above: Performed By: #### L 501.9520, L500.4050, L100.0100, L506.1000 #### [facility] [address] [place], [address] Neutrophils/100 WBC (Bld) 58.7 % Normal 47-70 [facility] Comment on above: Performed By: #### L 501.9520, L500.4050, L100.0100, L506.1000 #### [facility] [address] [place], [address] Nucleated RBC (Bld) [#/Vol] 0 10*3/uL Normal 0-5 [facility] Comment on above: Performed By: #### L 501.9520, L500.4050, L100.0100, L506.1000 #### [facility] [address] [place], [address] Platelet mean volume (Bld) [Entitic vol] 9.2 fL Normal 6.2-12.0 [facility] Comment on above: Performed By: #### L 501.9520, L500.4050, L100.0100, L506.1000 #### [facility] [address] [place], [address] Platelets (Bld) [#/Vol] 237 10*3/uL Normal 150-450 [facility] Comment on above: Performed By: #### L 501.9520, L500.4050, L100.0100, L506.1000 #### [facility] [address] [place], [address] RBC (Bld) [#/Vol] 4.77 10*6/uL Normal 4.2-5.4 [facility] Comment on above: Performed By: #### L 501.9520, L500.4050, L100.0100, L506.1000 #### [facility] [address] [place], [address] RDW SD 43.8 fl Normal 35.1-43.9 [facility] Comment on above: Performed By: #### L 501.9520, L500.4050, L100.0100, L506.1000 #### [facility] [address] [place], [address] WBC (Bld) [#/Vol] 7.7 10*3/uL Normal 4.4-11.0 [facility] Comment on above: Performed By: #### L 501.9520, L500.4050, L100.0100, L506.1000 #### [facility] [address] [place], [address] [facility] 01-05-2024 Albumin [Mass/Vol] 3.6 g/dL Normal 3.2-5.0 [facility] Comment on above: Performed By: #### L 501.9520, L500.4050, L100.0100, L506.1000 #### [facility] [address] [place], [address] Albumin/Globulin [Mass ratio] 1.0 {ratio} Normal 0.9-2.4 [facility] Comment on above: Performed By: #### L 501.9520, L500.4050, L100.0100, L506.1000 #### [facility] [address] [place], [address] ALK P 75 U/L Normal 45-117 [facility] Comment on above: Performed By: #### L 501.9520, L500.4050, L100.0100, L506.1000 #### [facility] [address] [place], [address] ALT [Catalytic activity/Vol] 21 U/L Normal 13-56 [facility] Comment on above: Performed By: #### L 501.9520, L500.4050, L100.0100, L506.1000 #### [facility] [address] [place], [address] AST [Catalytic activity/Vol] 16 U/L Normal 15-37 [facility] Comment on above: Performed By: #### L 501.9520, L500.4050, L100.0100, L506.1000 #### [facility] [address] [place], [address] Bilirubin [Mass/Vol] 1.40 mg/dL High 0.20-1.00 [facility] Comment on above: Result Comment: For patients on eltrombopag therapy, use of Dimension [place] TBIL is not recommended. Performed By: #### L 501.9520, L500.4050, L100.0100, L506.1000 #### [facility] [address] [place], [address] BUN/CRE 15.4 RATIO Normal 10-20 [facility] Comment on above: Performed By: #### L 501.9520, L500.4050, L100.0100, L506.1000 #### [facility] [address] [place], [address] CA,Total 9.3 mg/dL Normal 8.5-10.1 [facility] Comment on above: Performed By: #### L 501.9520, L500.4050, L100.0100, L506.1000 #### [facility] [address] [place], [address] Chloride [Moles/Vol] 107 mmol/L Normal 98-107 [facility] Comment on above: Performed By: #### L 501.9520, L500.4050, L100.0100, L506.1000 #### [facility] [address] [place], [address] CO2 [Moles/Vol] 29.0 mmol/L Normal 21.0-32.0 [facility] Comment on above: Performed By: #### L 501.9520, L500.4050, L100.0100, L506.1000 #### [facility] [address] [place], [address] Creatinine [Mass/Vol] 1.04 mg/dL High 0.55-1.02 [facility] Comment on above: Result Comment: The validity of the calculated GFR GFRAA in patients over 70 years has not been determined. Clinical correlation is essential. Performed By: #### L 501.9520, L500.4050, L100.0100, L506.1000 #### [facility] [address] [place], [address] EST GFR - AA 66 mL/min Normal >60 [facility] Comment on above: Result Comment: Afri can [place]e GFR Calc Performed By: #### L 501.9520, L500.4050, L100.0100, L506.1000 #### [facility] [address] [place], [address] GAP 5 Normal 5-15 [facility] Comment on above: Performed By: #### L 501.9520, L500.4050, L100.0100, L506.1000 #### [facility] [address] [place], [address] GFR/1.73 sq M.predicted among non-blacks MDRD (S/P/Bld) [Vol rate/Area] 55 mL/min/{1.73_m2} Low >60 [facility] Comment on above: Result Comment: Non- GFR Calc Performed By: #### L 501.9520, L500.4050, L100.0100, L506.1000 #### [facility] [address] [place], [address] Globulin (S) [Mass/Vol] 3.5 g/dL Normal 2.2-4.2 [facility] Comment on above: Performed By: #### L 501.9520, L500.4050, L100.0100, L506.1000 #### [facility] [address] [place], [address] Glucose [Mass/Vol] 87 mg/dL Normal 74-106 [facility] Comment on above: Performed By: #### L 501.9520, L500.4050, L100.0100, L506.1000 #### [facility] [address] [place], [address] Potassium [Moles/Vol] 3.7 mmol/L Normal 3.5-5.1 [facility] Comment on above: Performed By: #### L 501.9520, L500.4050, L100.0100, L506.1000 #### [facility] [address] [place], [address] Sodium [Moles/Vol] 141 mmol/L Normal 136-145 [facility] Comment on above: Performed By: #### L 501.9520, L500.4050, L100.0100, L506.1000 #### [facility] [address] [place], [address] T PROT 7.1 g/dL Normal 6.4-8.2 [facility] Comment on above: Performed By: #### L 501.9520, L500.4050, L100.0100, L506.1000 #### [facility] [address] [place], [address] Urea nitrogen [Mass/Vol] 16 mg/dL Normal 7-18 [facility] Comment on above: Performed By: #### L 501.9520, L500.4050, L100.0100, L506.1000 #### [facility] [address] [place], [address] Thyroid Stim Hormone (TSH)on 01-05-2024 TSH 0.75 uIU/mL Normal 0.358-3.74 [facility] Comment on above: Performed By: #### L 501.9520, L500.4050, L100.0100, L506.1000 #### [facility] [address] [place], [address] Vitamin D,25 Hydroxyon 01-04 Vitamin D 25-OH 34.2 ng/mL Normal [facility] Comment on above: Result Comment: Natty min D 25(OH) Status Range Deficiency <20 ng/mL (50nmol/L) Insufficiency 20 - 30 ng/mL (50 - 75 nmol/L) Sufficiency 30 - 100 ng/mL (75 - 250 nmol/L) Toxicity >100 ng/mL (>250 nmol/L) Performed By: #### L 501.9520, L500.4050, L100.0100, L506.1000 #### [facility] [address] [place], [address] CNPKayli 08-04-2023 LORENZO Telephone (YANGWA) HAKEEM GALLEGO ([id number]) 1945 F Date Time Provider Department 08/04/23 GIOVANNA BURGESS During your visit today, we recorded the following information about you: Giovanna Burgess APRN.CNP 08/04/2023 9:17 AM Signed Spoke to patient and notified her of positive covid results. Discussed quarantine as she has been sick for 8 days she can go out but should wear a mask if she's still symptomatic. Giovanna Burgess APRN.CNP Allergies As of Date: 08/04/2023 (No Known Allergies) Date Reviewed: 08/03/2023 Reviewed by: Axel Mendieta - Fully Assessed Prescriptions as of 08/04/2023 - metoprolol tartrate, short acting, (LOPRESSOR) 25 mg tablet Take 1 tablet by mouth every 12 hours. - benzonatate (TESSALON PERLES) 100 mg capsule Take 1 capsule by mouth three times a day as needed for cough. - guaiFENesin (MUCINEX) 600 mg 12 hr tablet Take 2 tablets by mouth two times a day as needed for cold/allergy symptoms. - fluticasone (FLONASE ALLERGY RELIEF) 50 mcg/actuation nasal spray Use 1 [place] in each nostril once daily. - simvastatin (ZOCOR) 10 mg tablet Take 10 mg by mouth daily at bedtime. - amLODIPine (NORVASC) 10 mg tablet TAKE ONE TABLET BY MOUTH EVERY DAY - calcium carbonate (CALTRATE) 600 mg calcium (1,500 mg) tab Take by mouth. - cyanocobalamin (VITAMIN B-12) 1,000 mcg tab Take by mouth. - cholecalciferol (VITAMIN D) 1,000 unit tab tablet Take by mouth. - TURMERIC ORAL Take 1,000 mg by mouth. - omeprazole (PRILOSEC) 20 mg capsule Take 20 mg by mouth. - albuterol HFA (PROVENTIL HFA, VENTOLIN HFA) 90 mcg/actuation inhaler Inhale 2 Puffs as instructed every 4 hours as needed for Wheezing/Shortness of Breath. Or cough Problem List As Of Date 08/04/2023 Noted Resolved Bronchiectasis without complication (HCC) [J47.*07/07/2017 Hypertension [I10] 01/25/2015 Osteopenia [M85.80] 01/25/2015 Pure hypercholesterolemia [E78.00] 01/25/2015 Encounter Status:Closed by GIOVANNA BURGESS on 08/04/23 [facility] 08-03-2023 SAMANTHA Office Visit (PRISCILLA ) HAKEEM GALLEGO ([id number]) 1945 F Date Time Provider Department 08/03/23 3:55 PM WILIAN SOLORZANO During your visit today, we recorded the following information about you: Temperature Pulse Respiration Blood pressure 97.9 degrees 66/minute 18/minute 154/79 Weight Height 73.4 kg 1.6 m Wilian Solorzano PA-C 08/03/2023 4:24 PM Signed Hakeem Gallego is a 78 year old female Patient presents with: Cough: Started Thursday night, runny nose, coughing, sinus congestion, has taken dayquil, Cough Runny nose Cough For 6-7 days Symptoms have stayed the same No change No fevers No improvement then worsening No past medical history on file. Social History Tobacco Use Smoking status: Never Smokeless tobacco: Never Current Outpatient Medications on File Prior to Visit Medication Sig metoprolol tartrate, short acting, (LOPRESSOR) 25 mg tablet Take 1 tablet by mouth every 12 hours. amLODIPine (NORVASC) 10 mg tablet TAKE ONE TABLET BY MOUTH EVERY DAY TURMERIC ORAL Take 1,000 mg by mouth. simvastatin (ZOCOR) 10 mg tablet Take 10 mg by mouth daily at bedtime. (Patient not taking: Reported on 08/03/2023) calcium carbonate (CALTRATE) 600 mg calcium (1,500 mg) tab Take by mouth. (Patient not taking: Reported on 08/03/2023) cyanocobalamin (VITAMIN B-12) 1,000 mcg tab Take by mouth. (Patient not taking: Reported on 08/03/2023) cholecalciferol (VITAMIN D) 1,000 unit tab tablet Take by mouth. (Patient not taking: Reported on 08/03/2023) omeprazole (PRILOSEC) 20 mg capsule Take 20 mg by mouth. (Patient not taking: Reported on 08/03/2023) albuterol HFA (PROVENTIL HFA, VENTOLIN HFA) 90 mcg/actuation inhaler Inhale 2 Puffs as instructed every 4 hours as needed for Wheezing/Shortness of Breath. Or cough (Patient not taking: Reported on 08/03/2023) No current facility-administered medications on file prior to visit. Patient has no known allergies. Physical Exam: BP 154/79 (BP Site: Right Arm, BP Position: Sitting, BP Cuff Size: Regular Adult) Pulse 66 Temp 36.6 ?C (97.9 ?F) (Right Tympanic) Resp 18 Ht 160 cm (5' 3) Wt 73.4 kg (161 lb 11.3 oz) SpO2 97% BMI 28.65 kg/m? GEN: Pleasant female in no acute distress HEENT: Normocephalic/atraumati c; pupils equal, round and reactive; extra-ocular movements intact, mucous membranes moist, oropharynx clear, tympanic membranes clear, external auditory canals clear, nares clear. NECK: Supple without lymphadenopathy, thyromegaly, or mass. CARDIO: Heart with a regular rate and rhythm without murmurs, rubs, or gallops. Normal S1/S2. LUNGS: Clear to auscultaition bilaterally without wheezes, ronchi, or rales. Good air movement. ASSESSMENT/PLAN: 1. URI, acute - ICD9: 465.9, ICD10: J06.9 - Discussed viral etiology and rationale for treatment. - Symptomatic treatment with prn analgesia - Supportive care with fluids and rest - BENZONATATE 100 MG CAPSULE - GUAIFENESIN ER 600 MG TABLET, EXTENDED RELEASE 12 HR - COVID AND INFLUENZA A/B AND RSV NAAT, ROUTINE Wilian Solorzano PA-C Referring Provider: SELF [200] Allergies As of Date: 08/03/2023 (No Known Allergies) Date Reviewed: 08/03/2023 Reviewed by: Axel Mendieta - Fully Assessed Reason for Visit: Cough [28] Cmt: Started Thursday night, runny nose, coughing, sinus congestion, has taken dayquil, Primary Visit Diagnosis:URI, acute [J06.9] Order(s):benzonatate (TESSALON PERLES) 100 mg capsuleTake 1 capsule by mouth three times a day as needed for cough.Disp: 21 capsuleRfl: 0 guaiFENesin (MUCINEX) 600 mg 12 hr tabletTake 2 tablets by mouth two times a day as needed for cold/allergy symptoms.Disp: Rfl: fluticasone (FLONASE ALLERGY RELIEF) 50 mcg/actuation nasal sprayUse 1 [place] in each nostril once daily.Disp: 11.1 mLRfl: 0 COVID AND INFLUENZA A/B AND RSV NAAT, ROUTINE [SQCVFLRS] Order #: [id number]. #:[id number] INFLUENZA AANDB MOLECULAR (POC) [[id number]] Order #: [id number]. #:[id number] Prescriptions as of 08/03/2023 - metoprolol tartrate, short acting, (LOPRESSOR) 25 mg tablet Take 1 tablet by mouth every 12 hours. - benzonatate (TESSALON PERLES) 100 mg capsule Take 1 capsule by mouth three times a day as needed for cough. - guaiFENesin (MUCINEX) 600 mg 12 hr tablet Take 2 tablets by mouth two times a day as needed for cold/allergy symptoms. - fluticasone (FLONASE ALLERGY RELIEF) 50 mcg/actuation nasal spray Use 1 [place] in each nostril once daily. - simvastatin (ZOCOR) 10 mg tablet Take 10 mg by mouth daily at bedtime. - amLODIPine (NORVASC) 10 mg tablet TAKE ONE TABLET BY MOUTH EVERY DAY - calcium carbonate (CALTRATE) 600 mg calcium (1,500 mg) tab Take by mouth. - cyanocobalamin (VITAMIN B-12) 1,000 mcg tab Take by mouth. - cholecalciferol (VITAMIN D) 1,000 unit tab tablet Take by mouth. - TURMERI (more content not included)... Normal [facility] COVID AND INFLUENZA A/B AND RSV NAAT, ROUTINEon 08-03-2023 SARS-CoV-2 (COVID-19) RNA MARLYN+probe Ql (Unsp spec) COVID 19 RESULT: Detected The method used is RT-PCR or an equivalent NAAT method. Reference Range (the expected result in uninfected individuals): Not detected INFLUENZA A PCR: Not detected INFLUENZA B PCR: Not detected RSV PCR: Not detected Abnormal [facility] Comment on above: Performed By: #### C VFLRS #### [facility] CLIA [id number] [address] [place] [address] [place] INFLUENZA A&B MOLECULAR (POC )on 08-03-2023 Flu A (POCT) Negative Negative [facility] Flu B (POCT) Negative Negative [facility] Procedural Control Valid [facility] Absolute lymphocyte countOrd ered By: Gary Longoria on 06-25-2023 Lymphocytes Auto (Unsp spec) [#/Vol] 2.68 10*3/uL 0.83-4.51 [facility] Basophil percentageOrdered B y: Gary Longoria on 06-25-2023 Basophils/100 WBC (Bld) 0.5 % 0-1 [facility] Bilirubin [Mass/Vol] 1.00 mg/dL 0.20-1.00 [facility] Comment on above: For patients on eltr ombopag therapy, use of Dimension [place] TBIL is not recommended. Chloride [Moles/Vol] 105 mmol/L 98-107 [facility] Eosinophils/100 WBC (Bld) 2.1 % 0-5 [facility] Glucose [Mass/Vol] 98 mg/dL 74-106 [facility] Neutrophils (Bld) [#/Vol] 3.8 10*3/uL 2.0-7.7 [facility] Neutrophils/100 WBC (Bld) 49.6 % 47-70 [facility] Potassium [Moles/Vol] 3.8 mmol/L 3.5-5.1 [facility] Protein [Mass/Vol] 7.3 g/dL 6.4-8.2 [facility] Sodium [Moles/Vol] 140 mmol/L 136-145 [facility] WBC (Bld) [#/Vol] 7.6 10*3/uL 4.4-11.0 [facility] Blood erythrocytes count (nu mber/volume)Ordered By: Gary Longoria on 06-25-2023 RBC (Bld) [#/Vol] 4.83 10*6/uL 4.2-5.4 [facility] Blood hemoglobin measurement (mass/volume)Ordered By: Gary Longoria on 06-25-2023 Hemoglobin (Bld) [Mass/Vol] 14.8 g/dL 12.0-15.0 [facility] Blood lymphocytes/100 leukoc ytesOrdered By: Gary Longoria on 06-25-2023 Lymphocytes/100 WBC (Bld) 35.3 % 19-41 [facility] Blood monocytes/100 leukocyt esOrdered By: Gary Longoria on 06-25-2023 Monocytes/100 WBC (Bld) 12.0 % 0-10 [facility] Blood platelet mean volumeOr dered By: Gary Longoria on 06-25-2023 Platelet mean volume (Bld) [Entitic vol] 9.2 fL 6.2-12.0 [facility] CBC W/Diff, Automatedon 01-0 4-2023 Absolute Lymph 2.68 X10 3/uL Normal 0.83-4.51 [facility] Comment on above: Performed By: #### L 501.9520, L500.4050, L100.0100, L506.1000 #### [facility] [address] [place], [address] Absolute Neut 3.8 X10 3/uL Normal 2.0-7.7 [facility] Comment on above: Performed By: #### L 501.9520, L500.4050, L100.0100, L506.1000 #### [facility] [address] [place], [address] Basophils/100 WBC (Bld) 0.5 % Normal 0-1 [facility] Comment on above: Performed By: #### L 501.9520, L500.4050, L100.0100, L506.1000 #### [facility] [address] [place], [address] Eosinophils/100 WBC (Bld) 2.1 % Normal 0-5 [facility] Comment on above: Performed By: #### L 501.9520, L500.4050, L100.0100, L506.1000 #### [facility] [address] [place], [address] Erythrocyte distribution width (RBC) [Ratio] 12.8 % Normal 11.6-14.6 [facility] Comment on above: Performed By: #### L [id number], L500.4050, L100.0100, [id number] #### [facility] [address] [place], [address] Hematocrit (Bld) [Volume fraction] 45.0 % Normal 37-47 [facility] Comment on above: Performed By: #### L [id number], [id number], L100.0100, L506.1000 #### [facility] [address] [place], [address] Hemoglobin (Bld) [Mass/Vol] 14.8 g/dL Normal 12.0-15.0 [facility] Comment on above: Performed By: #### L [id number], [id number], L100.0100, L506.1000 #### [facility] [address] [place], [address] IG% 0.500 Normal 0.0-0.9 [facility] Comment on above: Result Comment: IG% - Immature Granulocytes (promyelocytes, myelocytes and metamyelocytes) > 1% indicates that a LEFT SHIFT is Present. Performed By: #### L 501.9520, L500.4050, L100.0100, L506.1000 #### [facility] [address] [place], [address] Lymphocytes/100 WBC (Bld) 35.3 % Normal 19-41 [facility] Comment on above: Performed By: #### L [id number], [id number], L100.0100, L506.1000 #### [facility] [address] [place], [address] MCH (RBC) [Entitic mass] 30.6 pg Normal 27.0-32.0 [facility] Comment on above: Performed By: #### L [id number], [id number], L100.0100, L506.1000 #### [facility] [address] [place], [address] MCHC (RBC) [Mass/Vol] 32.9 g/dL Normal 32-36 [facility] Comment on above: Performed By: #### L [id number], [id number], L100.0100, L506.1000 #### [facility] [address] [place], [address] MCV (RBC) [Entitic vol] 93.2 fL Normal 81-99 [facility] Comment on above: Performed By: #### L [id number], L500.4050, L100.0100, L506.1000 #### [facility] [address] [place], [address] Monocytes/100 WBC (Bld) 12.0 % High 0-10 [facility] Comment on above: Performed By: #### L [id number], [id number], L100.0100, L506.1000 #### [facility] [address] [place], [address] Neutrophils/100 WBC (Bld) 49.6 % Normal 47-70 [facility] Comment on above: Performed By: #### L [id number], [id number], L100.0100, L506.1000 #### [facility] [address] [place], [address] Nucleated RBC (Bld) [#/Vol] 0 10*3/uL Normal 0-5 [facility] Comment on above: Performed By: #### L [id number], L500.4050, L100.0100, L506.1000 #### [facility] [address] [place], [address] Platelet mean volume (Bld) [Entitic vol] 9.2 fL Normal 6.2-12.0 [facility] Comment on above: Performed By: #### L [id number], L500.4050, L100.0100, L506.1000 #### [facility] [address] [place], [address] Platelets (Bld) [#/Vol] 266 10*3/uL Normal 150-450 [facility] Comment on above: Performed By: #### L 501.9520, L500.4050, L100.0100, L506.1000 #### [facility] [address] [place], [address] RBC (Bld) [#/Vol] 4.83 10*6/uL Normal 4.2-5.4 [facility] Comment on above: Performed By: #### L [id number], [id number], L100.0100, L506.1000 #### [facility] [address] [place], [address] RDW SD 43.8 fl Normal 35.1-43.9 [facility] Comment on above: Performed By: #### L [id number], L500.4050, L100.0100, L506.1000 #### [facility] [address] [place], [address] WBC (Bld) [#/Vol] 7.6 10*3/uL Normal 4.4-11.0 [facility] Comment on above: Performed By: #### L 501.9520, L500.4050, L100.0100, L506.1000 #### [facility] [address] [place], [address] [facility] Albumin [Mass/Vol] 3.6 g/dL Normal 3.2-5.0 [facility] Comment on above: Performed By: #### L 501.9520, L500.4050, L100.0100, L506.1000 #### [facility] [address] [place], [address] Albumin/Globulin [Mass ratio] 1.0 {ratio} Normal 0.9-2.4 [facility] Comment on above: Performed By: #### L [id number], L500.4050, L100.0100, L506.1000 #### [facility] [address] [place], [address] ALK P 75 U/L Normal 45-117 [facility] Comment on above: Performed By: #### L [id number], L500.4050, L100.0100, L506.1000 #### [facility] [address] [place], [address] ALT [Catalytic activity/Vol] 29 U/L Normal 13-56 [facility] Comment on above: Performed By: #### L [id number], L500.4050, L100.0100, L506.1000 #### [facility] [address] [place], [address] AST [Catalytic activity/Vol] 16 U/L Normal 15-37 [facility] Comment on above: Performed By: #### L [id number], L500.4050, L100.0100, L506.1000 #### [facility] [address] [place], [address] Bilirubin [Mass/Vol] 1.00 mg/dL Normal 0.20-1.00 [facility] Comment on above: Result Comment: For patients on eltrombopag therapy, use of Dimension [place] TBIL is not recommended. Performed By: #### L [id number], L500.4050, L100.0100, L506.1000 #### [facility] [address] [place], [address] BUN/CRE 13.9 RATIO Normal 10-20 [facility] Comment on above: Performed By: #### L [id number], [id number], L100.0100, L506.1000 #### [facility] [address] [place], [address] CA,Total 9.4 mg/dL Normal 8.5-10.1 [facility] Comment on above: Performed By: #### L [id number], L500.4050, L100.0100, L506.1000 #### [facility] [address] [place], [address] Chloride [Moles/Vol] 105 mmol/L Normal 98-107 [facility] Comment on above: Performed By: #### L 501.9520, L500.4050, L100.0100, L506.1000 #### [facility] [address] [place], [address] CO2 [Moles/Vol] 28.0 mmol/L Normal 21.0-32.0 [facility] Comment on above: Performed By: #### L [id number], L500.4050, L100.0100, L506.1000 #### [facility] [address] [place], [address] Creatinine [Mass/Vol] 1.08 mg/dL High 0.55-1.02 [facility] Comment on above: Result Comment: The validity of the calculated GFR GFRAA in patients over 70 years has not been determined. Clinical correlation is essential. Performed By: #### L 501.9520, L500.4050, L100.0100, L506.1000 #### [facility] [address] [place], [address] EST GFR - AA 63 mL/min Normal >60 [facility] Comment on above: Result Comment: Afri can Nepalese GFR Calc Performed By: #### L [id number], L500.4050, L100.0100, L506.1000 #### [facility] [address] [place], [address] GAP 7 Normal 5-15 [facility] Comment on above: Performed By: #### L [id number], L500.4050, L100.0100, L506.1000 #### [facility] [address] [place], [address] GFR/1.73 sq M.predicted among non-blacks MDRD (S/P/Bld) [Vol rate/Area] 52 mL/min/{1.73_m2} Low >60 [facility] Comment on above: Result Comment: Non- GFR Calc Performed By: #### L [id number], L500.4050, L100.0100, L506.1000 #### [facility] [address] [place], [address] Globulin (S) [Mass/Vol] 3.7 g/dL Normal 2.2-4.2 [facility] Comment on above: Performed By: #### L [id number], L500.4050, L100.0100, L506.1000 #### [facility] [address] [place], [address] Glucose [Mass/Vol] 98 mg/dL Normal 74-106 [facility] Comment on above: Performed By: #### L 501.9520, L500.4050, L100.0100, L506.1000 #### [facility] [address] [place], [address] Potassium [Moles/Vol] 3.8 mmol/L Normal 3.5-5.1 [facility] Comment on above: Performed By: #### L [id number], L500.4050, L100.0100, L506.1000 #### [facility] [address] [place], [address] Sodium [Moles/Vol] 140 mmol/L Normal 136-145 [facility] Comment on above: Performed By: #### L 501.9520, L500.4050, L100.0100, L506.1000 #### [facility] [address] [place], [address] T PROT 7.3 g/dL Normal 6.4-8.2 [facility] Comment on above: Performed By: #### L 501.9520, L500.4050, L100.0100, L506.1000 #### [facility] [address] [place], [address] Urea nitrogen [Mass/Vol] 15 mg/dL Normal 7-18 [facility] Comment on above: Performed By: #### L 501.9520, L500.4050, L100.0100, L506.1000 #### [facility] [address] [facility] [place], [address] Determination of erythrocyte mean corpuscular volume (MCV)Ordered By: Gary Longoria on 06-25-2023 MCV (RBC) [Entitic vol] 93.2 fL 81-99 [facility] Hematocrit Auto (Bld) [Volum e fraction]Ordered By: Gary Longoria on 06-25-2023 Hematocrit (Bld) [Volume fraction] 45.0 % 37-47 [facility] - Chemistry and C hemistry - challengeOrdered By: Gary Kenneth on 06-25-2023 ALP [Catalytic activity/Vol] 75 U/L 45-117 [facility] ALT [Catalytic activity/Vol] 29 U/L 13-56 [facility] CO2 [Moles/Vol] 28.0 mmol/L 21.0-32.0 [facility] Globulin (S) [Mass/Vol] 3.7 g/dL 2.2-4.2 [facility] Urea nitrogen/Creatinine [Mass ratio] 13.9 mg/mg 10-20 [facility] - Hematology and Cell countsOrdered By: Gary Longoria on 06-25-2023 Erythrocyte distribution width (RBC) [Entitic vol] 43.8 fL 35.1-43.9 [facility] Erythrocyte distribution width (RBC) [Ratio] 12.8 % 11.6-14.6 [facility] Immature granulocytes/100 WBC (Bld) 0.500 % 0.0-0.9 [facility] Comment on above: IG% - Immature Granu locytes (promyelocytes, myelocytes and metamyelocytes) > 1% indicates that a LEFT SHIFT is Present. MCH (RBC) [Entitic mass] 30.6 pg 27.0-32.0 [facility] Nucleated RBC/100 WBC (Bld) [Ratio] 0 % 0-5 [facility] MCHC Auto (RBC) [Mass/Vol]Or dered By: Gary Longoria on 06-25-2023 MCHC (RBC) [Mass/Vol] 32.9 g/dL 32-36 [facility] No Panel InformationOrdered By: Gary Longoria on 06-25-2023 Estimated GFR (MDRD) Amer 63 mL/min >60 [facility] Comment on above: GFR Calc Estimated GFR (MDRD) Non-Af Amer 52 mL/min >60 [facility] Comment on above: Non- GFR Calc Thyroid Stimulating Hormone (TSH) 1.46 uIU/mL 0.358-3.74 [facility] Vitamin D 25-Hydroxy 44.3 ng/mL [facility] Comment on above: Vitamin D 25(OH) Sta tus Range Deficiency <20 ng/mL (50nmol/L) Insufficiency 20 - 30 ng/mL (50 - 75 nmol/L) Sufficiency 30 - 100 ng/mL (75 - 250 nmol/L) Toxicity >100 ng/mL (>250 nmol/L) Platelets bldOrdered By: Gary Longoria on 06-25-2023 Platelets (Bld) [#/Vol] 266 10*3/uL 150-450 [facility] Serum or plasma albumin jarad urement (mass/volume)Ordered By: Gary Longoria on 06-25-2023 Albumin [Mass/Vol] 3.6 g/dL 3.2-5.0 [facility] Serum or plasma albumin/glob ulin mass ratioOrdered By: Gary Longoria 06-25-2023 Albumin/Globulin [Mass ratio] 1.0 {ratio} 0.9-2.4 [facility] Serum or plasma calcium jarad urement (mass/volume)Ordered By: Gary Longoria on 06-25-2023 Calcium [Mass/Vol] 9.4 mg/dL 8.5-10.1 [facility] Serum or plasma creatinine m easurement (mass/volume)Ordered By: Gary Longoria on 06-25-2023 Creatinine [Mass/Vol] 1.08 mg/dL 0.55-1.02 [facility] Comment on above: The validity of the calculated GFR & GFRAA in patients over 70 years has not been determined. Clinical correlation is essential. Serum or plasma urea nitroge n measurement (mass/volume)Ordered By: Gary Longoria on 06-25-2023 Urea nitrogen [Mass/Vol] 15 mg/dL 7-18 [facility] Thin prep Papanicolaou smear with manual screeningOrdered By: Gary Longoria on 06-25-2023 Thin prep Papanicolaou smear with manual screening 16 U/L 15-37 [facility] Thin prep Papanicolaou smear with manual screening 7 5-15 [facility] Thyroid Stim Hormone (TSH)on 06-25-2023 TSH 1.46 uIU/mL Normal 0.358-3.74 [facility] Comment on above: Performed By: #### L [id number], L500.4050, L100.0100, L506.1000 #### [facility] [address] [place], [place], [address] Vitamin D,25 Hydroxyon 06-25 Vitamin D 25-OH 44.3 ng/mL Normal [facility] Comment on above: Result Comment: Natty min D 25(OH) Status Range Deficiency <20 ng/mL (50nmol/L) Insufficiency 20 - 30 ng/mL (50 - 75 nmol/L) Sufficiency 30 - 100 ng/mL (75 - 250 nmol/L) Toxicity >100 ng/mL (>250 nmol/L) Performed By: #### L [id number], L500.4050, L100.0100, L506.1000 #### [facility] [address] [place], [address] Basophil percentageOrdered B y: Guero Oquendo on 04-23-2023 Creatinine [Mass/Vol] 1.0 mg/dL 0.55-1.02 [facility] - Chemistry and C hemistry - challengeOrdered By: Guero Oquendo on 04-23-2023 GFR/1.73 sq M.predicted among non-blacks MDRD (S/P/Bld) [Vol rate/Area] 56.0000 mL/min/{1.73_m2} >60 [facility] ECG 12-LEADon 02-04-2023 ECG 12-LEAD IMPRESSION: Sinus rhythm Normal [place] No ST or T wave changes Compared to ECG 08/01/2022 04:46:16 No significant changes Electronically Signed On 02-04-2023 7:19:13 EDT by [place] Normal [facility] Basic metabolic 1998 panelon 02-03-2023 Anion gap [Moles/Vol] 6 mmol/L 3 - 13 mmol/L [facility] Calcium [Mass/Vol] 9.0 mg/dL 8.4 - 10. 4 mg/dL [facility] Chloride [Moles/Vol] 107 mmol/L 98 - 10 7 mmol/L [facility] CO2 [Moles/Vol] 25 mmol/L 22 - 30 mmol/L [facility] Creatinine [Mass/Vol] 0.77 mg/dL 0.52 - 1.04 mg/dL [facility] GFR/1.73 sq M.predicted MDRD (S/P/Bld) [Vol rate/Area] 80.1 mL/min/{1.73_m2} - [facility] Comment on above: Calculation based on the Chronic Kidney Disease Epidemiology Collaboration (CKD-EPI) equation refit without adjustment for race Glucose [Mass/Vol] 110 mg/dL High 70 - 100 mg/dL [facility] Interpretation and review of laboratory results Abnormal [facility] Potassium [Moles/Vol] 3.8 mmol/L 3.5 - 5.1 mmol/L [facility] Sodium [Moles/Vol] 138 mmol/L 135 - 145 mmol/L [facility] Urea nitrogen [Mass/Vol] 14 mg/dL 7 - 17 mg/dL [facility] CBC panel Auto (Bld)on 02-03 Erythrocyte distribution width (RBC) [Ratio] 13.2 % 11.5 - 14.5 % [facility] Hematocrit (Bld) [Volume fraction] 42.3 % 35.0 - 47.0 % [facility] Hemoglobin (Bld) [Mass/Vol] 14.5 g/dL 11.7 - 16.0 g/dL [facility] Interpretation and review of laboratory results Normal [facility] MCH (RBC) [Entitic mass] 31.2 pg 26. 0 - 34.0 pg [facility] MCHC (RBC) [Mass/Vol] 34.3 % 32.0 - 36.0 % [facility] MCV (RBC) [Entitic vol] 91.0 fL 80.0 - 98.0 fL [facility] Platelet mean volume (Bld) [Entitic vol] 9.1 fL 7.4 - 12.4 fL [facility] Comment on above: MPV is a calculated measurement using platelet volume ratio Platelets (Bld) [#/Vol] 261 10*3/uL 140 - 440 10*3/uL [facility] RBC (Bld) [#/Vol] 4.65 10*6/uL 3.8 - 5.20 10*6/uL [facility] WBC (Bld) [#/Vol] 9.0 10*3/uL 3.6 - 10.7 10*3/uL [facility] ED Nursing Noteon 02-03-2023 ED Nursing Note Patient arrived to E D registration requesting a new copy of her discharge instructions, due to losing them. Rc Montiel RN 02/11/23 1450 Normal [facility] ED Nursing Note Patient ambulated fr [facility] stretcher to bedside commode, then to [...] within reach. Patient has no further needs. Normal [facility] ED Provider Noteon ED Provider Note EMERGENCY DEPARTMENT ENCOUNTER Pt Name: Hakeem [...] physician has previously referred her to a .net developer however she has yet to establish. Nursing [...] of 02/03/23 0636 SVT (supraventricular tachycardia) (CMS/HCC) ([facility]) Medications sodium chloride 0.9 % bolus 1,000 [...] sinus rhythm. If lab work, urinalysis is reassuri (more content not included)... Normal [facility] Laboratory - Chemistry and C hemistry - challengeon 02-03-2023 TSH Qn 1.608 m[IU]/L [facility] Troponin I.cardiac [Mass/Vol] ng/mL 0.000 - 0.034 ng/mL [facility] TSH Qnon 02-03-2023 Interpretation and review of laboratory results Normal [facility] Troponin I.cardiac [Mass/Vol ]on 02-03-2023 Interpretation and review of laboratory results Normal [facility] Patients with high levels of Biotin oral intake (ie >5 mg/day) may have falsely decreased Troponin levels. [facility] Urinalysis complete panel (U )Ordered By: Patricia Liriano on 02-03-2023 Bilirubin Ql (U) Negative Negative mg/dL [facility] Clarity (U) Clear Clear [facility] Color (U) Colorless Lt. Yellow [facility] Glucose Ql (U) Normal Normal (<70) mg/dL [facility] Hemoglobin Ql (U) Negative Negative mg/dL [facility] Interpretation and review of laboratory results Abnormal [facility] Ketones (U) [Mass/Vol] Negative Negat ann mg/dL [facility] Leukocyte esterase Test strip Ql (U) Negative Negative Jong/uL [facility] Nitrite Ql (U) Negative Negative [facility] th pH (U) 7.0 [pH] 5.0 - 8.0 pH [facility] Protein (U) [Mass/Vol] Negative Negat ann mg/dL [facility] Specific gravity (U) [Rel density] 1.004 Low 1.005 - 1.030 [facility] Urobilinogen (U) [Mass/Vol] Normal Normal (0-1) mg/dL [facility] Absolute lymphocyte countOrd ered By: Gary Longoria on 12-17-2022 Lymphocytes Auto (Unsp spec) [#/Vol] 2.65 10*3/uL 0.83-4.51 [facility] Basophil percentageOrdered B y: Gary Longoria on 12-17-2022 Basophils/100 WBC (Bld) 0.7 % 0-1 [facility] Bilirubin [Mass/Vol] 0.90 mg/dL 0.20-1.00 [facility] Comment on above: For patients on eltr ombopag therapy, use of Dimension [place] TBIL is not recommended. Chloride [Moles/Vol] 105 mmol/L 98-107 [facility] Eosinophils/100 WBC (Bld) 1.7 % 0-5 [facility] Glucose [Mass/Vol] 89 mg/dL 74-106 [facility] Neutrophils (Bld) [#/Vol] 4.3 10*3/uL 2.0-7.7 [facility] Neutrophils/100 WBC (Bld) 53.2 % 47-70 [facility] Potassium [Moles/Vol] 4.0 mmol/L 3.5-5.1 [place] Protein [Mass/Vol] 7.1 g/dL 6.4-8.2 [facility] Sodium [Moles/Vol] 139 mmol/L 136-145 [facility] WBC (Bld) [#/Vol] 8.1 10*3/uL 4.4-11.0 [facility] Blood erythrocytes count (nu mber/volume)Ordered By: Gary Longoria on 12-17-2022 RBC (Bld) [#/Vol] 4.72 10*6/uL 4.2-5.4 [facility] Blood hemoglobin measurement (mass/volume)Ordered By: Gary Longoria on 12-17-2022 Hemoglobin (Bld) [Mass/Vol] 14.4 g/dL 12.0-15.0 [facility] Blood lymphocytes/100 leukoc ytesOrdered By: Gary Longoria on 12-17-2022 Lymphocytes/100 WBC (Bld) 32.6 % 19-41 [facility] Blood monocytes/100 leukocyt esOrdered By: Gary Longoria on 12-17-2022 Monocytes/100 WBC (Bld) 11.4 % 0-10 [facility] Blood platelet mean volumeOr dered By: Gary Longoria on 12-17-2022 Platelet mean volume (Bld) [Entitic vol] 9.0 fL 6.2-12.0 [facility] Determination of erythrocyte mean corpuscular volume (MCV)Ordered By: Gary Longoria on 12-17-2022 MCV (RBC) [Entitic vol] 91.5 fL 81-99 [facility] Hematocrit Auto (Bld) [Volum e fraction]Ordered By: Gary Longoria on 12-17-2022 Hematocrit (Bld) [Volume fraction] 43.2 % 37-47 [facility] - Chemistry and C hemistry - challengeOrdered By: Gary Longoria on 12-17-2022 ALP [Catalytic activity/Vol] 86 U/L 45-117 [facility] ALT [Catalytic activity/Vol] 24 U/L 13-56 [facility] CO2 [Moles/Vol] 32.0 mmol/L 21.0-32.0 [facility] Globulin (S) [Mass/Vol] 3.5 g/dL 2.2-4.2 [facility] Urea nitrogen/Creatinine [Mass ratio] 18.5 mg/mg 10-20 [facility] - Hematology and Cell countsOrdered By: Gary Longoria on 12-17-2022 Erythrocyte distribution width (RBC) [Entitic vol] 44.6 fL 35.1-43.9 [facility] Erythrocyte distribution width (RBC) [Ratio] 13.2 % 11.6-14.6 [facility] Immature granulocytes/100 WBC (Bld) 0.400 % 0.0-0.9 [facility] Comment on above: IG% - Immature Granu locytes (promyelocytes, myelocytes and metamyelocytes) > 1% indicates that a LEFT SHIFT is Present. MCH (RBC) [Entitic mass] 30.5 pg 27.0-32.0 [facility] Nucleated RBC/100 WBC (Bld) [Ratio] 0 % 0-5 [facility] MCHC Auto (RBC) [Mass/Vol]Or dered By: Gary Longoria on 12-17-2022 MCHC (RBC) [Mass/Vol] 33.3 g/dL 32-36 [place] No Panel InformationOrdered By: Gary Longoria on 12-17-2022 Estimated GFR (MDRD) Amer 72 mL/min >60 [facility] Comment on above: GFR Calc Estimated GFR (MDRD) Non-Af Amer 59 mL/min >60 [facility] Comment on above: Non- GFR Calc Thyroid Stimulating Hormone (TSH) 1.07 uIU/mL 0.358-3.74 [facility] Vitamin D 25-Hydroxy 25.5 ng/mL [facility] Comment on above: Vitamin D 25(OH) Sta tus Range Deficiency <20 ng/mL (50nmol/L) Insufficiency 20 - 30 ng/mL (50 - 75 nmol/L) Sufficiency 30 - 100 ng/mL (75 - 250 nmol/L) Toxicity >100 ng/mL (>250 nmol/L) Platelets bldOrdered By: Gary Longoria on 12-17-2022 Platelets (Bld) [#/Vol] 274 10*3/uL 150-450 [facility] Serum or plasma albumin jarad urement (mass/volume)Ordered By: Gary Longoria on 12-17-2022 Albumin [Mass/Vol] 3.6 g/dL 3.2-5.0 [facility] Serum or plasma albumin/glob ulin mass ratioOrdered By: Gary Longoria on 12-17-2022 Albumin/Globulin [Mass ratio] 1.0 {ratio} 0.9-2.4 [facility] Serum or plasma calcium jarad urement (mass/volume)Ordered By: Gary Longoria on 12-17-2022 Calcium [Mass/Vol] 9.3 mg/dL 8.5-10.1 [facility] Serum or plasma creatinine m easurement (mass/volume)Ordered By: Gary Longoria on 12-17-2022 Creatinine [Mass/Vol] 0.97 mg/dL 0.55-1.02 [place] Comment on above: The validity of the calculated GFR & GFRAA in patients over 70 years has not been determined. Clinical correlation is essential. Serum or plasma urea nitroge n measurement (mass/volume)Ordered By: Gary Longoria on 12-17-2022 Urea nitrogen [Mass/Vol] 18 mg/dL 7-18 [facility] Thin prep Papanicolaou smear with manual screeningOrdered By: Gary Longoria on 12-17-2022 Thin prep Papanicolaou smear with manual screening 20 U/L 15-37 [facility] Thin prep Papanicolaou smear with manual screening 2 5-15 [facility] Basic metabolic 1998 panelon 08-01-2022 Anion gap [Moles/Vol] 4 mmol/L 3 - 13 mmol/L [facility] Calcium [Mass/Vol] 9.4 mg/dL 8.4 - 10. 4 mg/dL [facility] Chloride [Moles/Vol] 102 mmol/L 98 - 10 7 mmol/L [facility] CO2 [Moles/Vol] 32 mmol/L High 22 - 30 mmol/L [facility] Creatinine [Mass/Vol] 1.02 mg/dL 0.52 - 1.04 mg/dL [facility] GFR/1.73 sq M.predicted MDRD (S/P/Bld) [Vol rate/Area] 57.1 mL/min/{1.73_m2} Low - [facility] Comment on above: Calculation based on the Chronic Kidney Disease Epidemiology Collaboration (CKD-EPI) equation refit without adjustment for race Glucose [Mass/Vol] 110 mg/dL High 70 - 100 mg/dL [facility] Interpretation and review of laboratory results Abnormal [facility] Potassium [Moles/Vol] 3.7 mmol/L 3.5 - 5.1 mmol/L [facility] Sodium [Moles/Vol] 137 mmol/L 135 - 145 mmol/L [facility] Urea nitrogen [Mass/Vol] 19 mg/dL High 7 - 17 mg/dL [facility] CBC W Auto Differential pane l (Bld)Ordered By: Babak Daily on 08-01-2022 Basophils (Bld) [#/Vol] 0.1 10*3/uL 0.0 - 0.2 10*3/uL [facility] Basophils/100 WBC (Bld) 0.7 % 0.0 - 2.0 % [facility] Eosinophils (Bld) [#/Vol] 0.2 10*3/uL 0.0 - 0.5 10*3/uL [facility] Eosinophils/100 WBC (Bld) 2.1 % 1.0 - 6.0 % [facility] Erythrocyte distribution width (RBC) [Ratio] 12.9 % 11.5 - 14.5 % [facility] Hematocrit (Bld) [Volume fraction] 43.6 % 35.0 - 47.0 % [facility] Hemoglobin (Bld) [Mass/Vol] 14.6 g/dL 11.7 - 16.0 g/dL [facility] Immature granulocytes (Bld) [#/Vol] 0.1 10*3/uL High NINF - 0.0 10*3/uL [facility] Immature granulocytes/100 WBC (Bld) 0.6 % High NINF - 0.0 % [facility] Interpretation and review of laboratory results Abnormal [facility] Lymphocytes (Bld) [#/Vol] 3.5 10*3/uL 1.0 - 4.3 10*3/uL [facility] Lymphocytes/100 WBC (Bld) 33.5 % 20.0 - 40.0 % [facility] MCH (RBC) [Entitic mass] 30.2 pg 26. 0 - 34.0 pg [facility] MCHC (RBC) [Mass/Vol] 33.5 % 32.0 - 36.0 % [facility] MCV (RBC) [Entitic vol] 90.1 fL 80.0 - 98.0 fL [facility] Monocytes (Bld) [#/Vol] 1.2 10*3/uL High 0.0 - 0.8 10*3/uL [facility] Monocytes/100 WBC (Bld) 10.9 % High 2.0 - 10.0 % [facility] Neutrophils (Bld) [#/Vol] 5.5 10*3/uL 1.8 - 7.0 10*3/uL [facility] Neutrophils/100 WBC (Bld) 52.2 % 40.0 - 80.0 % [facility] Platelet mean volume (Bld) [Entitic vol] 9.0 fL 7.4 - 12.4 fL [facility] Comment on above: MPV is a calculated measurement using platelet volume ratio Platelets (Bld) [#/Vol] 377 10*3/uL 140 - 440 10*3/uL [facility] RBC (Bld) [#/Vol] 4.84 10*6/uL 3.8 - 5.20 10*6/uL [facility] WBC (Bld) [#/Vol] 10.6 10*3/uL 3.6 - 10.7 10*3/uL [facility] ECG 12-LEADon 08-01-2022 ECG 12-LEAD IMPRESSION: Sinus rhythm normal axis, normal intervals, normal st segment Electronically Signed On 08-01-2022 5:38:16 EST by Tati Dietz [facility] ED Nursing Noteon 08-01-2022 ED Nursing Note Patient to room 3 wi th c/o chest tingling at 0330 this am that has resolved. Patient reports drinking wine this morning and an hour later had tingling in her chest that radiated to her back. Patient reports breaking out in a sweat, denies nausea and vomiting. Patient took two 325 mg aspirin. EKG completed, V/S obtained, call light within reach. Normal [facility] ED Provider Noteon ED Provider Note EMERGENCY DEPARTMENT ENCOUNTER Pt Name: Hakeem Gallego Birthdate 1945 Date of evaluation: 08/01/2022 CHIEF COMPLAINT Chief Complaint Patient presents with Chest Pain HISTORY OF PRESENT ILLNESS HPI Hakeem Gallego is a 77 y.o. female who presents to the emergency department with chest pain, tingling. Associated symptoms of sweats. . She took some aspirin. The chest pain is resolved. She reports she is he is grieving the of a close friend she found out about it less than 24 hours ago. She otherwise did have some wine. REVIEW OF SYSTEMS Review of Systems CURRENT MEDICATIONS Previous Medications CETIRIZINE (ZYRTEC) 10 [...] Yes Comment: occ. Drug use: Never SCREENINGS HEART Score History: Slightly suspicious ECG: Normal Age: 65+ Risk Factors: 1-2 risk factors Troponin: Less than or equal to normal limit HEART Score: 3 PHYSICAL EXAM Vitals: 08/01/22 0458 08/01/22 0534 08/01/22 0547 BP: (!) 160/86 (!) 140/79 (!) 140/79 Pulse: 87 84 83 Resp: 16 21 19 Temp: 37.1 ?C (98.8 ?F) TempSrc: Oral SpO2: 99% 95% 97% Weight: 72.6 kg (160 lb) Height: 1.6 m (5' 3) Physical Exam Constitutional: General: She is not in acute distress. Appearance: She is well-developed. She is not ill-appearing or toxic-appearing. HENT: Head: Atraumatic. Right Ear: External ear normal. Left Ear: External ear normal. Nose: Nose normal. Mouth/Throat: Mouth: Mucous membranes are moist. Pharynx: Oropharynx is clear. No oropharyngeal exudate. Eyes: General: No scleral icterus. Extraocular Movements: Extraocular movements intact. Pupils: Pupils are equal, round, and reactive to light. Neck: Vascular: No JVD. Cardiovascular: Rate and Rhythm: Normal rate and regular rhythm. Pulses: Normal pulses. Radial pulses are 2+ on the right side and 2+ on the left side. Dorsalis pedis pulses are 2+ on the right side and 2+ on the left side. Posterior tibial pulses are 2+ on the right side and 2+ on the left side. Heart sounds: Normal heart sounds. No murmur heard. No friction rub. No gallop. Pulmonary: Effort: Pulmonary effort is normal. No respiratory distress. Breath sounds: Normal breath sounds. No stridor. No wheezing, rhonchi or rales. Chest: Chest wall: No tenderness. Abdominal: General: There is no distension. Palpations: Abdomen is soft. There is no mass. Tenderness: There is no abdominal tenderness. There is no guarding or rebound. Hernia: No hernia is present. Musculoskeletal: General: No swelling or deformity. Cervical back: Normal range of motion and neck supple. Right lower leg: No edema. Left lower leg: No edema. Lymphadenopathy: Cervical: No cervical adenopathy. Skin: General: Skin is warm and dry. Capillary Refill: Capillary refill takes less than 2 seconds. Coloration: Skin is not jaundiced. Findings: No bruising, erythema or rash. Neurological: Mental Status: She is alert and oriented to person, place, and time. Gait: Gait is intact. Deep Tendon Reflexes: Reflexes normal. Psychiatric: Mood and Affect: Mood normal. Behavior: Behavior normal. Thought Content: Thought content normal. Judgment: Judgment normal. Medical decision making Medical Decision Making Amount and/or Complexity of Data Reviewed Labs: ordered. Radiology: ordered. ECG/medicine tests: ordered. DIAGNOSTIC RESULTS Procedures/EKG: Physician EKG interpretation can be found in [facility] if done RADIOLOGY (Per Emergency Physician): Radiology: X-ray was reviewed and was independently interpreted by myself: Chest: was negative for infiltrate, effusion, pneumothorax, or wide mediastinum Interpretation per the Radiologist below, if available at the time of this note: XR chest 2 views Final Result No convincing acute process seen. Report Dictated on Electronically Signed By: Guero Nur Electronically Signed Date/Time: 08/01/2022 6:03 AM EST ED BEDSIDE ULTRASOUND: LABS: Labs Reviewed BASIC METABOLIC PANEL - Abnormal Result Value SODIUM 137 POTASSIUM 3.7 CHLORIDE 102 CARBON DIOXIDE 32 (*) UREA NITROGEN 19 (*) CREATININE 1.02 GLUCOSE 110 (*) CALCIUM 9.4 ANION GAP 4 eGFR 57.1 (*) CBC WITH AUTO DIFFERENTIAL - Abnormal Auto WBC 10.6 RBC 4.84 Hemoglobin 14.6 Hematocrit 43.6 MCV 90.1 MCH 30.2 MCHC 33.5 RDW 12.9 Platelets 377 MPV 9.0 Neutrophils Relative 52.2 Lymphocytes Relative 33.5 Monocyte (more content not included)... Normal [facility] Fibrin D-dimer FEU (PPP) [Ma ss/Vol]on 08-01-2022 Interpretation and review of laboratory results Normal [facility] D-Dimer values of <0.50 mg/L FEU can be used in combination with a pre-test probability model (e.g. Well's) to exclude pulmonary embolism (PE) disease, as well as an aid in the diagnosis of deep vein thrombosis (DVT). [facility] Laboratory - Chemistry and C hemistry - challengeon 08-01-2022 Troponin I.cardiac [Mass/Vol] ng/mL 0.000 - 0.034 ng/mL [facility] Laboratory - Coagulationon 0 08-01-2022 Fibrin D-dimer FEU (PPP) [Mass/Vol] 0.40 mg/L NINF - 0.50 mg/L [facility] No Panel Informationon 08-01 P [place] 38 degrees [facility] CT Interval 167 ms [facility] QRS [place] 44 degrees [facility] QRSD Interval 100 ms [facility]alt [facility] QT Interval 360 ms [facility] QTC Interval 421 ms [facility] T Wave [place] 11 degrees [facility] Sinus rhythm normal axis, normal intervals, normal st segment Electronically Signed On 08-01-2022 5:38:16 EST by Tati Lezama MD - 08/01/2022 IMPRESSION: Sinus rhythm normal axis, normal intervals, normal st segment Electronically Signed On 08-01-2022 5:38:16 EST by Tati Dietz [facility] Troponin I.cardiac [Mass/Vol ]on 08-01-2022 Interpretation and review of laboratory results Normal [facility] Patients with high levels of Biotin oral intake (ie >5 mg/day) may have falsely decreased Troponin levels. [facility] Vital signson 08-01-2022 Heart rate 82 /min bpm [facility] XR Chest 2 Viewson 3 No convincing acute process seen. Report Dictated on Electronically Signed By: Guero Nur Electronically Signed Date/Time: 08/01/2022 6:03 AM EST [facility] [place] RADIOLOGY SYSTEM Patient Name: HAKEEM GALLEGO : 1945 Exam Date/Time: 08/01/2022 05:48 Procedure: XR CHEST 2 VIEWS Ordering Provider: DIETZ NISHIT Reason For Exam: CHEST PAIN EXAM TYPE: RADIOLOGIC EXAMINATION, CHEST, two views. EXAM DATE AND TIME: 08/01/2022 5:48 AM EST INDICATION: Chest pain COMPARISON: 09/21/2018 TECHNIQUE: Two views of the thorax were obtained and reviewed. Special views: None. Findings: 1. Lines/Tubes/Devices/Taj dware: Leads noted Please confirm function/ position of support lines clinically prior to use. 2. Lungs: No consolidation or pulmonary edema. 3. Pleura: No pneumothorax or pleural effusions. 4. Heart and mediastinum: Normal cardiomediastinal contours. 5. Upper abdomen: No definite acute process seen. 6, Spine:No convincing acute process. Degenerative changes noted. [facility] Guero Nur MD - 08/01/2022 Patient Name: HAKEEM GALLEGO : 1945 Exam Date/Time: 08/01/2022 05:48 Procedure: XR CHEST 2 VIEWS Ordering Provider: DIETZ NISHIT Reason For Exam: CHEST PAIN EXAM TYPE: RADIOLOGIC EXAMINATION, CHEST, two views. EXAM DATE AND TIME: 08/01/2022 5:48 AM EST INDICATION: Chest pain COMPARISON: 09/21/2018 TECHNIQUE: Two views of the thorax were obtained and reviewed. Special views: None. Findings: 1. Lines/Tubes/Devices/Taj dware: Leads noted Please confirm function/ position of support lines clinically prior to use. 2. Lungs: No consolidation or pulmonary edema. 3. Pleura: No pneumothorax or pleural effusions. 4. Heart and mediastinum: Normal cardiomediastinal contours. 5. Upper abdomen: No definite acute process seen. 6, Spine:No convincing acute process. Degenerative changes noted. IMPRESSION: No convincing acute process seen. Report Dictated on Electronically Signed By: Guero Nur Electronically Signed Date/Time: 08/01/2022 6:03 AM EST [facility] Radiology Study observation (narrative) [facility] XR Chest 2 ViewsOrdered By: Guero Nur on 08-01-2022 [facility] [employer] Work Phone: Culture, urineOrdered By: Dr Nas Longoria on 07-26-2022 Bacteria identified Cx Nom (U) Mixed Gram Pos & Gram Neg Org [facility] Absolute lymphocyte countOrd ered By: Dr. Longoria on 07-24-2022 Lymphocytes Auto (Unsp spec) [#/Vol] 2.38 10*3/uL 0.83-4.51 [facility] Basophil percentageOrdered B y: Dr. Longoria on 07-24-2022 Basophils/100 WBC (Bld) 0.4 % 0-1 [facility] Bilirubin [Mass/Vol] 0.90 mg/dL 0.20-1.00 [facility] Comment on above: For patients on eltr ombopag therapy, use of Dimension [place] TBIL is not recommended. Chloride [Moles/Vol] 104 mmol/L 98-107 [facility] Eosinophils/100 WBC (Bld) 1.6 % 0-5 [facility] Glucose [Mass/Vol] 102 mg/dL 74-106 [facility] Comment on above: Fasting Glucose resu lt from 100 to 125 mg/dL suggests IMPAIRED HOMEOSTASIS per A.D.A. criteria. Neutrophils (Bld) [#/Vol] 8.2 10*3/uL 2.0-7.7 [facility] Neutrophils/100 WBC (Bld) 66.8 % 47-70 [facility] Potassium [Moles/Vol] 3.8 mmol/L 3.5-5.1 [place] Protein [Mass/Vol] 7.5 g/dL 6.4-8.2 [facility] Sodium [Moles/Vol] 138 mmol/L 136-145 [facility] WBC (Bld) [#/Vol] 12.3 10*3/uL 4.4-11.0 [facility] Blood erythrocytes count (nu mber/volume)Ordered By: Dr. Longoria on 07-24-2022 RBC (Bld) [#/Vol] 4.67 10*6/uL 4.2-5.4 [facility] Blood hemoglobin measurement (mass/volume)Ordered By: Dr. Longoria on 07-24-2022 Hemoglobin (Bld) [Mass/Vol] 13.8 g/dL 12.0-15.0 [facility] Blood lymphocytes/100 leukoc ytesOrdered By: Dr. Longoria on 07-24-2022 Lymphocytes/100 WBC (Bld) 19.4 % 19-41 [facility] Blood monocytes/100 leukocyt esOrdered By: Dr. Longoria on 07-24-2022 Monocytes/100 WBC (Bld) 11.2 % 0-10 [facility] Blood platelet mean volumeOr dered By: Dr. Longoria on 07-24-2022 Platelet mean volume (Bld) [Entitic vol] 9.4 fL 6.2-12.0 [facility] Determination of erythrocyte mean corpuscular volume (MCV)Ordered By: Dr. Longoria on 07-24-2022 MCV (RBC) [Entitic vol] 90.1 fL 81-99 [facility] Hematocrit Auto (Bld) [Volum e fraction]Ordered By: Dr. Longoria on 07-24-2022 Hematocrit (Bld) [Volume fraction] 42.1 % 37-47 [facility] Laboratory - Chemistry and C hemistry - challengeOrdered By: Dr. Longoria on 07-24-2022 ALP [Catalytic activity/Vol] 91 U/L 45-117 [facility] ALT [Catalytic activity/Vol] 25 U/L 13-56 [facility] CO2 [Moles/Vol] 28.0 mmol/L 21.0-32.0 [facility] Globulin (S) [Mass/Vol] 4.1 g/dL 2.2-4.2 [facility] Urea nitrogen/Creatinine [Mass ratio] 12.5 mg/mg 10-20 [facility] Laboratory - Hematology and Cell countsOrdered By: Dr. Longoria on 07-24-2022 Erythrocyte distribution width (RBC) [Entitic vol] 43.8 fL 35.1-43.9 [facility] Erythrocyte distribution width (RBC) [Ratio] 13.2 % 11.6-14.6 [facility] Immature granulocytes/100 WBC (Bld) 0.600 % 0.0-0.9 [facility] Comment on above: IG% - Immature Granu locytes (promyelocytes, myelocytes and metamyelocytes) > 1% indicates that a LEFT SHIFT is Present. MCH (RBC) [Entitic mass] 29.6 pg 27.0-32.0 [facility] Nucleated RBC/100 WBC (Bld) [Ratio] 0 % 0-5 [facility] MCHC Auto (RBC) [Mass/Vol]Or dered By: Dr. Longoria on 07-24-2022 MCHC (RBC) [Mass/Vol] 32.8 g/dL 32-36 [place] No Panel InformationOrdered By: Dr. Longoria on 07-24-2022 Estimated GFR (MDRD) Amer 66 mL/min >60 [facility] Comment on above: GFR Calc Estimated GFR (MDRD) Non-Af Amer 55 mL/min >60 [facility] Comment on above: Non- GFR Calc Platelets bldOrdered By: Dr. Longoria on 07-24-2022 Platelets (Bld) [#/Vol] 307 10*3/uL 150-450 [facility] Serum or plasma albumin jarad urement (mass/volume)Ordered By: Dr. Longoria on 07-24-2022 Albumin [Mass/Vol] 3.4 g/dL 3.2-5.0 [facility] Serum or plasma albumin/glob ulin mass ratioOrdered By: Dr. Longoria on 07-24-2022 Albumin/Globulin [Mass ratio] 0.8 {ratio} 0.9-2.4 [facility] Serum or plasma calcium jarad urement (mass/volume)Ordered By: Dr. Longoria on 07-24-2022 Calcium [Mass/Vol] 9.2 mg/dL 8.5-10.1 [facility] Serum or plasma creatinine m easurement (mass/volume)Ordered By: Dr. Longoria on 07-24-2022 Creatinine [Mass/Vol] 1.04 mg/dL 0.55-1.02 [place] Comment on above: The validity of the calculated GFR & GFRAA in patients over 70 years has not been determined. Clinical correlation is essential. Serum or plasma urea nitroge n measurement (mass/volume)Ordered By: Dr. Longoria on 07-24-2022 Urea nitrogen [Mass/Vol] 13 mg/dL 7-18 [facility] Thin prep Papanicolaou smear with manual screeningOrdered By: Dr. Longoria on 07-24-2022 Thin prep Papanicolaou smear with manual screening 18 U/L 15-37 [facility] Thin prep Papanicolaou smear with manual screening 6 5-15 [facility] Absolute lymphocyte countOrd ered By: Dr. Longoria on 05-22-2022 Lymphocytes Auto (Unsp spec) [#/Vol] 1.90 10*3/uL 0.83-4.51 [facility] Basophil percentageOrdered B y: Dr. Longoria on 05-22-2022 Basophils/100 WBC (Bld) 0.6 % 0-1 [facility] Bilirubin [Mass/Vol] 0.90 mg/dL 0.20-1.00 [facility] Comment on above: For patients on eltr ombopag therapy, use of Dimension [place] TBIL is not recommended. Chloride [Moles/Vol] 106 mmol/L 98-107 [facility] Eosinophils/100 WBC (Bld) 2.3 % 0-5 [facility] Glucose [Mass/Vol] 91 mg/dL 74-106 [facility] Neutrophils (Bld) [#/Vol] 5.0 10*3/uL 2.0-7.7 [facility] Neutrophils/100 WBC (Bld) 60.6 % 47-70 [facility] Potassium [Moles/Vol] 3.5 mmol/L 3.5-5.1 [place] Protein [Mass/Vol] 7.5 g/dL 6.4-8.2 [facility] Sodium [Moles/Vol] 142 mmol/L 136-145 [facility] WBC (Bld) [#/Vol] 8.3 10*3/uL 4.4-11.0 [facility] Blood erythrocytes count (nu mber/volume)Ordered By: Dr. Longoria on 05-22-2022 RBC (Bld) [#/Vol] 4.76 10*6/uL 4.2-5.4 [facility] Blood hemoglobin measurement (mass/volume)Ordered By: Dr. Longoria on 05-22-2022 Hemoglobin (Bld) [Mass/Vol] 14.3 g/dL 12.0-15.0 [facility] Blood lymphocytes/100 leukoc ytesOrdered By: Dr. Longoria on 05-22-2022 Lymphocytes/100 WBC (Bld) 23.0 % 19-41 [facility] Blood monocytes/100 leukocyt esOrdered By: Dr. Longoria on 05-22-2022 Monocytes/100 WBC (Bld) 13.1 % 0-10 [facility] Blood platelet mean volumeOr dered By: Dr. Longoria on 05-22-2022 Platelet mean volume (Bld) [Entitic vol] 9.5 fL 6.2-12.0 [facility] Determination of erythrocyte mean corpuscular volume (MCV)Ordered By: Dr. Longoria on 05-22-2022 MCV (RBC) [Entitic vol] 92.4 fL 81-99 [facility] Hematocrit Auto (Bld) [Volum e fraction]Ordered By: Dr. Longoria on 05-22-2022 Hematocrit (Bld) [Volume fraction] 44.0 % 37-47 [facility] Laboratory - Chemistry and C hemistry - challengeOrdered By: Dr. Longoria on 05-22-2022 ALP [Catalytic activity/Vol] 85 U/L 45-117 [facility] ALT [Catalytic activity/Vol] 29 U/L 13-56 [facility] CO2 [Moles/Vol] 29.0 mmol/L 21.0-32.0 [facility] Globulin (S) [Mass/Vol] 3.8 g/dL 2.2-4.2 [facility] Urea nitrogen/Creatinine [Mass ratio] 13.5 mg/mg 10-20 [facility] Laboratory - Hematology and Cell countsOrdered By: Dr. Lonogria on 05-22-2022 Erythrocyte distribution width (RBC) [Entitic vol] 47.2 fL 35.1-43.9 [facility] Erythrocyte distribution width (RBC) [Ratio] 13.7 % 11.6-14.6 [facility] Immature granulocytes/100 WBC (Bld) 0.400 % 0.0-0.9 [facility] Comment on above: IG% - Immature Granu locytes (promyelocytes, myelocytes and metamyelocytes) > 1% indicates that a LEFT SHIFT is Present. MCH (RBC) [Entitic mass] 30.0 pg 27.0-32.0 [facility] Nucleated RBC/100 WBC (Bld) [Ratio] 0 % 0-5 [facility] MCHC Auto (RBC) [Mass/Vol]Or dered By: Dr. Longoria on 05-22-2022 MCHC (RBC) [Mass/Vol] 32.5 g/dL 32-36 [place] No Panel InformationOrdered By: Dr. Longoria on 05-22-2022 Estimated GFR (MDRD) Amer 72 mL/min >60 [facility] Comment on above: GFR Calc Estimated GFR (MDRD) Non-Af Amer 60 mL/min >60 [facility] Comment on above: Non- GFR Calc Thyroid Stimulating Hormone (TSH) 0.96 uIU/mL 0.358-3.74 [facility] Vitamin D 25-Hydroxy 19.8 ng/mL [facility] Comment on above: Vitamin D 25(OH) Sta tus Range Deficiency <20 ng/mL (50nmol/L) Insufficiency 20 - 30 ng/mL (50 - 75 nmol/L) Sufficiency 30 - 100 ng/mL (75 - 250 nmol/L) Toxicity >100 ng/mL (>250 nmol/L) Platelets bldOrdered By: Dr. Longoria on 05-22-2022 Platelets (Bld) [#/Vol] 274 10*3/uL 150-450 [facility] Serum or plasma albumin jarad urement (mass/volume)Ordered By: Dr. Longoria on 05-22-2022 Albumin [Mass/Vol] 3.7 g/dL 3.2-5.0 [facility] Serum or plasma albumin/glob ulin mass ratioOrdered By: Dr. Longoria on 05-22-2022 Albumin/Globulin [Mass ratio] 1.0 {ratio} 0.9-2.4 [facility] Serum or plasma calcium jarad urement (mass/volume)Ordered By: Dr. Longoria on 05-22-2022 Calcium [Mass/Vol] 9.3 mg/dL 8.5-10.1 [facility] Serum or plasma creatinine m easurement (mass/volume)Ordered By: Dr. Longoria on 05-22-2022 Creatinine [Mass/Vol] 0.96 mg/dL 0.55-1.02 [place] Comment on above: The validity of the calculated GFR & GFRAA in patients over 70 years has not been determined. Clinical correlation is essential. Serum or plasma urea nitroge n measurement (mass/volume)Ordered By: Dr. Longoria on 05-22-2022 Urea nitrogen [Mass/Vol] 13 mg/dL 7-18 [facility] Thin prep Papanicolaou smear with manual screeningOrdered By: Dr. Longoria on 05-22-2022 Thin prep Papanicolaou smear with manual screening 17 U/L 15-37 [facility] Thin prep Papanicolaou smear with manual screening 7 5-15 [facility] Absolute lymphocyte counton 12-12-2021 Lymphocytes Auto (Unsp spec) [#/Vol] 2.16 10*3/uL 0.83-4.51 [facility] Work Phone: Basophil percentageon 2021 Basophils/100 WBC (Bld) 0.8 % 0-1 [facility] Work Phone: Bilirubin [Mass/Vol] 0.70 mg/dL 0.20-1.00 [facility] Work Phone: Comment on above: For patients on eltr ombopag therapy, use of Dimension [place] TBIL is not recommended. Chloride [Moles/Vol] 104 mmol/L 98-107 [facility] Work Phone: Eosinophils/100 WBC (Bld) 2.2 % 0-5 [facility] Work Phone: Glucose [Mass/Vol] 76 mg/dL 74-106 [facility] Work Phone: Neutrophils (Bld) [#/Vol] 3.4 10*3/uL 2.0-7.7 [facility] Work Phone: Neutrophils/100 WBC (Bld) 53.0 % 47-70 [facility] Work Phone: Potassium [Moles/Vol] 3.3 mmol/L 3.5-5.1 [facility] Work Phone: Protein [Mass/Vol] 7.2 g/dL 6.4-8.2 [facility] Work Phone: Sodium [Moles/Vol] 140 mmol/L 136-145 [facility] Work Phone: WBC (Bld) [#/Vol] 6.5 10*3/uL 4.4-11.0 [facility] Work Phone: Blood erythrocytes count (nu mber/volume)on 12-12-2021 RBC (Bld) [#/Vol] 4.57 10*6/uL 4.2-5.4 [facility]: Blood hemoglobin measurement (mass/volume)on 12-12-2021 Hemoglobin (Bld) [Mass/Vol] 13.7 g/dL 12.0-15.0 [facility] Work Phone: Blood lymphocytes/100 leukoc yteson 12-12-2021 Lymphocytes/100 WBC (Bld) 33.3 % 19-41 [facility] Work Phone: Blood monocytes/100 leukocyt eson 12-12-2021 Monocytes/100 WBC (Bld) 10.2 % 0-10 [facility] Work Phone: Blood platelet mean volumeon 12-12-2021 Platelet mean volume (Bld) [Entitic vol] 9.5 fL 6.2-12.0 [facility] Work Phone: [phone] Determination of erythrocyte mean corpuscular volume (MCV)on 12-12-2021 MCV (RBC) [Entitic vol] 92.3 fL 81-99 [facility] Work Phone: [phone] Hematocrit Auto (Bld) [Volum e fraction]on 12-12-2021 Hematocrit (Bld) [Volume fraction] 42.2 % 37-47 [facility] Work Phone: [phone] Laboratory - Chemistry and C hemistry - challengeon 12-12-2021 ALP [Catalytic activity/Vol] 68 U/L 45-117 [facility] Work Phone: [phone] ALT [Catalytic activity/Vol] 30 U/L 13-56 [facility] Work Phone: [phone] CO2 [Moles/Vol] 30.0 mmol/L 21.0-32.0 [facility] Work Phone: [phone] Globulin (S) [Mass/Vol] 3.6 g/dL 2.2-4.2 [facility] Work Phone: [phone] Urea nitrogen/Creatinine [Mass ratio] 12.0 mg/mg 10-20 [facility] Work Phone: [phone] Laboratory - Hematology and Cell countson 12-12-2021 Erythrocyte distribution width (RBC) [Entitic vol] 47.5 fL 35.1-43.9 [facility] Work Phone: [phone] Erythrocyte distribution width (RBC) [Ratio] 13.9 % 11.6-14.6 [facility] Work Phone: [phone] Immature granulocytes/100 WBC (Bld) 0.500 % 0.0-0.9 [facility] Work Phone: [phone] Comment on above: IG% - Immature Granu locytes (promyelocytes, myelocytes and metamyelocytes) > 1% indicates that a LEFT SHIFT is Present. MCH (RBC) [Entitic mass] 30.0 pg 27.0-32.0 [facility] Work Phone: Nucleated RBC/100 WBC (Bld) [Ratio] 0 % 0-5 [facility] Work Phone: [phone] MCHC Auto (RBC) [Mass/Vol]on 12-12-2021 MCHC (RBC) [Mass/Vol] 32.5 g/dL 32-36 [place] Work Phone: No Panel Informationon 12-12 Estimated GFR (MDRD) Amer 58 mL/min >60 [facility] Work Phone: [phone] Comment on above: GFR Calc Estimated GFR (MDRD) Non-Af Amer 48 mL/min >60 [facility] Work Phone: Comment on above: Non- GFR Calc Thyroid Stimulating Hormone (TSH) 0.71 uIU/mL 0.358-3.74 [facility] Work Phone: [phone] Vitamin D 25-Hydroxy 25.4 ng/mL [facility] Work Phone: [phone] Comment on above: Vitamin D 25(OH) Sta tus Range Deficiency <20 ng/mL (50nmol/L) Insufficiency 20 - 30 ng/mL (50 - 75 nmol/L) Sufficiency 30 - 100 ng/mL (75 - 250 nmol/L) Toxicity >100 ng/mL (>250 nmol/L) Platelets bldon 12-12-2021 Platelets (Bld) [#/Vol] 270 10*3/uL 150-450 [facility] Work Phone: [phone] Serum or plasma albumin jarad urement (mass/volume)on 12-12-2021 Albumin [Mass/Vol] 3.6 g/dL 3.2-5.0 [facility] Work Phone: [phone] Serum or plasma albumin/glob ulin mass ratioon 12-12-2021 Albumin/Globulin [Mass ratio] 1.0 {ratio} 0.9-2.4 [facility] Work Phone: [phone] Serum or plasma calcium jarad urement (mass/volume)on 12-12-2021 Calcium [Mass/Vol] 9.3 mg/dL 8.5-10.1 [facility] Work Phone: Serum or plasma creatinine m easurement (mass/volume)on 12-12-2021 Creatinine [Mass/Vol] 1.17 mg/dL 0.55-1.02 [place] Work Phone: Comment on above: The validity of the calculated GFR & GFRAA in patients over 70 years has not been determined. Clinical correlation is essential. Serum or plasma urea nitroge n measurement (mass/volume)on 12-12-2021 Urea nitrogen [Mass/Vol] 14 mg/dL 7-18 [facility] Work Phone: Thin prep Papanicolaou smear with manual screeningon 12-12-2021 Thin prep Papanicolaou smear with manual screening 25 U/L 15-37 [facility] Work Phone: Thin prep Papanicolaou smear with manual screening 6 5-15 [facility] Work Phone: CBC with Auto Differentialon 10-12-2021 Absolute Baso # 0.1 10*3/uL 0.0 - 0.2 10*3/uL [facility] Absolute Neut # 4.3 10*3/uL 1.8 - 7.0 10*3/uL [facility] Basophils/100 WBC (Bld) 1.3 % 0.0 - 2.0 % [facility] Eosinophils (Bld) [#/Vol] 0.1 10*3/uL 0.0 - 0.5 10*3/uL [facility] Eosinophils/100 WBC (Bld) 1.8 % 1.0 - 6.0 % [facility] Granulocytes/100 WBC (Bld) 60.9 % 40.0 - 80.0 % [facility] Hematocrit (Bld) [Volume fraction] 43.3 % 35.0 - 47.0 % [facility] Hemoglobin.gastrointesti nal spec 1 Ql (Stl) 14.6 g/dL 11.7 - 16.0 g/dL [facility] Interpretation and review of laboratory results Abnormal [facility] Lymphocytes (Bld) [#/Vol] 1.7 10*3/uL 1.0 - 4.3 10*3/uL [facility] Lymphocytes/100 WBC (Bld) 24.0 % 20.0 - 40.0 % [facility] MCH (RBC) [Entitic mass] 30.4 pg 26. 0 - 34.0 pg [facility] MCHC (RBC) [Mass/Vol] 33.7 % 32.0 - 36.0 % [facility] MCV (RBC) [Entitic vol] 90.2 fL 79.0 - 98.0 fL [facility] Monocytes (Bld) [#/Vol] 0.8 10*3/uL 0.0 - 0.8 10*3/uL [facility] Monocytes/100 WBC (Bld) 12.0 % High 2.0 - 10.0 % [facility] Platelet distribution width (Bld) [Ratio] 14.1 % 11.5 - 14.5 % [facility] Platelet mean volume (Bld) [Entitic vol] 7.7 fL 7.4 - 10.4 fL [facility] Platelets (Bld) [#/Vol] 297 10*3/uL 140 - 440 10*3/uL [facility] RBC (Bld) [#/Vol] 4.80 10*6/uL 3.80 - 5.2 0 10*6/uL [facility] WBC (Bld) [#/Vol] 7.0 10*3/uL 3.6 - 10.7 10*3/uL [facility] Test Performed by [facility], [address] , [address] LAB [facility] Comp Metabolic Panelon 10-12 ALP [Catalytic activity/Vol] 63 U/L Normal 38-126 [facility] Comment on above: Result Comment: Slig htly hemolysed, interpret with caution. Performed By: #### H DELIA CMP3 #### [facility] [address] [place] [address] ALT [Catalytic activity/Vol] 25 U/L Normal 0-34 [facility] Comment on above: Result Comment: The ALT test is performed by an updated assay method. Please note that the reference intervals have been changed and are now sex specific. Performed By: #### H DELIA CMP3 #### [facility] [address] [place] [address] Anion gap [Moles/Vol] 7 mmol/L Normal 3-13 [facility] Comment on above: Performed By: #### H DELIA CMP3 #### [facility] [address] [place] [address] AST [Catalytic activity/Vol] 46 U/L Normal 15-46 [facility] Comment on above: Result Comment: Slig htly hemolysed, interpret with caution. Performed By: #### H DELIA CMP3 #### [facility] [address] [place] [address] Calcium [Mass/Vol] 10.1 mg/dL Normal 8.4-10.4 [facility] Comment on above: Performed By: #### H DELIA CMP3 #### [facility] [address] [place] [address] CO2 [Moles/Vol] 28 mmol/L Normal 22-30 [facility] Comment on above: Performed By: #### H DELIA CMP3 #### [facility] [address] [place] [address] Glucose [Mass/Vol] 82 mg/dL Normal 70-100 [facility] Comment on above: Performed By: #### H [place]LL[place] LIN3 #### [facility] [address] [place] [address] Protein [Mass/Vol] 7.7 g/dL Normal 6.3-8.2 [facility] Comment on above: Result Comment: Slig htly hemolysed, interpret with caution. Performed By: #### H DELIA CMP3 #### [facility] [address] [place] [address] Urea nitrogen [Mass/Vol] 16 mg/dL Normal 9-20 [facility] Comment on above: Performed By: #### H DELIA CMP3 #### [facility] [address] [place] [address] Bilirubin [Mass/Vol] 1.3 mg/dL Normal 0.2-1.3 [facility] Comment on above: Performed By: #### H WELLINGTON LIN3 #### [facility] [address] [place] [address] Creatinine [Mass/Vol] 1.00 mg/dL Normal 0.52-1.25 [facility] Comment on above: Performed By: #### H WELLINGTON LIN3 #### [facility] [address] [place] [address] GFR/1.73 sq M.predicted among blacks MDRD (S/P/Bld) [Vol rate/Area] 63.6 mL/min/{1.73_m2} Normal >60 [facility] Comment on above: Performed By: #### H WELLINGTON LIN3 #### [facility] [address] [place] [address] GFR/1.73 sq M.predicted among non-blacks MDRD (S/P/Bld) [Vol rate/Area] 54.9 mL/min/{1.73_m2} Abnormal >60 [facility] Comment on above: Result Comment: KDIG O guidelines provide the following GFR categories: Stage GFR(ml/min/1.73 m2) Terms G1 >=90 Normal or high G2 60-89 Mildly decreased* G3a 45-59 Mildly to moderately decreased G3b 30-44 Moderately to severely decreased G4 15-29 Severely decreased G5 <15 Kidney failure *Relative to young adult level. In the absence of evidence of kidney damage, neither GFR category G1 nor G2 fulfill the criteria for CKD. The CKD-EPI equation is validated in individuals 18 years of age and older. Currently the best equation for estimating glomerular filtration rate (GFR) from serum creatinine in children is the Bedside Guzman equation. It is less accurate in patients with extremes of muscle mass, restriction of dietary protein, ingestion of creatine, extra-renal metabolism of creatinine, or treatment with medications that affect renal tubular creatinine secretion. Performed By: #### H WELLINGTON LIN3 #### [facility] [address] [place] [address] Albumin [Mass/Vol] 4.6 g/dL Normal 3.5-5.0 [facility] Comment on above: Result Comment: Slig htly hemolysed, interpret with caution. Performed By: #### H WELLINGTON LIN3 #### [facility] [address] [place] [address] Chloride [Moles/Vol] 101 mmol/L Normal 98-107 [facility] Comment on above: Performed By: #### H WELLINGTON LIN3 #### [facility] [address] [place] [address] Potassium [Moles/Vol] 4.1 mmol/L Normal 3.5-5.1 [facility] Comment on above: Result Comment: Slig htly hemolysed, interpret with caution. Performed By: #### H WELLINGTON LIN3 #### [facility] [address] [place] [address] Sodium [Moles/Vol] 137 mmol/L Normal 135-145 [facility] Comment on above: Performed By: #### H WELLINGTON LIN3 #### [facility] [address] [place] [address] Comprehensive Metabolic Pane sherri 10-12-2021 Albumin [Mass/Vol] 4.6 g/dL 3.5 - 5.0 g/dL [facility] Comment on above: Slightly hemolysed, interpret with caution. ALP (Bld) [Catalytic activity/Vol] 63 U/L 38 - 126 U/L [facility] Comment on above: Slightly hemolysed, interpret with caution. ALT [Catalytic activity/Vol] 25 U/L 0 - 34 U/L [facility] Comment on above: The ALT test is perf ormed by an updated assay method. Please note that the reference intervals have been changed and are now sex specific. Anion gap [Moles/Vol] 7 mmol/L 3 - 13 mmol/L [facility] AST [Catalytic activity/Vol] 46 U/L 15 - 46 U/L [facility] Comment on above: Slightly hemolysed, interpret with caution. Bilirubin [Mass/Vol] 1.3 mg/dL 0.2 - 1 .3 mg/dL [facility] Calcium [Mass/Vol] 10.1 mg/dL 8.4 - 10. 4 mg/dL [facility] Chloride [Moles/Vol] 101 mmol/L 98 - 10 7 mmol/L [facility] CO2 [Moles/Vol] 28 mmol/L 22 - 30 mmol/L [facility] Creatinine [Mass/Vol] 1 mg/dL 0.52 - 1.25 mg/dL [facility] EGFR IF NonAfrican Nepalese 54.9 mL/min Abnormal >60 [facility] Comment on above: KDIGO guidelines pro vide the following GFR categories: Stage GFR(ml/min/1.73 m2) Terms G1 >=90 Normal or high G2 60-89 Mildly decreased* G3a 45-59 Mildly to moderately decreased G3b 30-44 Moderately to severely decreased G4 15-29 Severely decreased G5 <15 Kidney failure *Relative to young adult level. In the absence of evidence of kidney damage, neither GFR category G1 nor G2 fulfill the criteria for CKD. The CKD-EPI equation is validated in individuals 18 years of age and older. Currently the best equation for estimating glomerular filtration rate (GFR) from serum creatinine in children is the Bedside Guzman equation. It is less accurate in patients with extremes of muscle mass, restriction of dietary protein, ingestion of creatine, extra-renal metabolism of creatinine, or treatment with medications that affect renal tubular creatinine secretion. Free PSA/Total PSA [Mass fraction] 7.7 g/dL 6.3 - 8.2 g/dL [facility] Comment on above: Slightly hemolysed, interpret with caution. GFR/1.73 sq M.predicted among blacks MDRD (S/P/Bld) [Vol rate/Area] 63.6 mL/min/{1.73_m2} >60 [facility] Glucose [Mass/Vol] 82 mg/dL 70 - 100 mg/dL [facility] Interpretation and review of laboratory results Abnormal [facility] Potassium [Moles/Vol] 4.1 mmol/L 3.5 - 5.1 mmol/L [facility] Comment on above: Slightly hemolysed, interpret with caution. Sodium [Moles/Vol] 137 mmol/L 135 - 145 mmol/L [facility] Urea nitrogen (BldV) [Mass/Vol] 16 mg/dL 9 - 20 mg/dL [facility] Test Performed by [facility], [address] , [address] LAB [facility] Hemogram w/ Autodiffon 10-12 Abs Baso Cnt 0.1 10*3/uL Normal 0.0-0.2 [facility] Comment on above: Performed By: #### H BRANDO [facility] #### [facility] [address] [place] [address] Abs Neutrophile Cnt 4.3 10*3/uL Normal 1.8-7.0 [facility] Comment on above: Performed By: #### H DELIA CMP3 #### [facility] [address] [place] [address] Basophils/100 WBC (Bld) 1.3 % Normal 0.0-2.0 [facility] Comment on above: Performed By: #### H DELIA CMP3 #### [facility] [address] [place] [address] Eosinophils (Bld) [#/Vol] 0.1 10*3/uL Normal 0.0-0.5 [facility] Comment on above: Performed By: #### H DELIA CMP3 #### [facility] [address] [place] [address] Eosinophils/100 WBC (Bld) 1.8 % Normal 1.0-6.0 [facility] Comment on above: Performed By: #### H DELIA CMP3 #### [facility] [address] [place] [address] Erythrocyte distribution width (RBC) [Ratio] 14.1 % Normal 11.5-14.5 [facility] Comment on above: Performed By: #### H DELIA CMP3 #### [facility] [address] [place] [address] Granulocytes/100 WBC (Bld) 60.9 % Normal 40.0-80.0 [facility] Comment on above: Performed By: #### H DELIA CMP3 #### [facility] [address] [place] [address] Hematocrit (Bld) [Volume fraction] 43.3 % Normal 35.0-47.0 [facility] Comment on above: Performed By: #### H DELIA CMP3 #### [facility] [address] [place] [address] Hemoglobin (Bld) [Mass/Vol] 14.6 g/dL Normal 11.7-16.0 [facility] Comment on above: Performed By: #### H DELIA CMP3 #### [facility] [address] [place] [address] Lymphocytes (Bld) [#/Vol] 1.7 10*3/uL Normal 1.0-4.3 [facility] Comment on above: Performed By: #### H WELLINGTON LIN3 #### [facility] [address] [place] [address] Lymphocytes/100 WBC (Bld) 24.0 % Normal 20.0-40.0 [facility] Comment on above: Performed By: #### H WELLINGTON LIN3 #### [facility] [address] [place] [address] MCH (RBC) [Entitic mass] 30.4 pg Normal 26.0-34.0 [facility] Comment on above: Performed By: #### H WELLINGTON LIN3 #### [facility] [address] [address] MCHC 33.7 % Normal 32.0-36.0 [facility] Comment on above: Performed By: #### H WELLINGTON LIN3 #### [facility] [address] [place] [address] MCV (RBC) [Entitic vol] 90.2 fL Normal 79.0-98.0 [facility] Comment on above: Performed By: #### H WELLINGTON LIN3 #### [facility] [address] [place] [address] Monocytes (Bld) [#/Vol] 0.8 10*3/uL Normal 0.0-0.8 [facility] Comment on above: Performed By: #### H WELLINGTON LIN3 #### [facility] [address] [place] [address] Monocytes/100 WBC (Bld) 12.0 % High 2.0-10.0 [facility] Comment on above: Performed By: #### H DELIA CMP3 #### [facility] [address] [place] [address] Platelet mean volume (Bld) [Entitic vol] 7.7 fL Normal 7.4-10.4 [facility] Comment on above: Performed By: #### H DELIA CMP3 #### [facility] [address] [place] [address] Platelets (Bld) [#/Vol] 297 10*3/uL Normal 140-440 [facility] Comment on above: Performed By: #### H DELIA CMP3 #### [facility] [address] [place] [address] RBC (Bld) [#/Vol] 4.80 10*6/uL Normal 3.80-5.20 [facility] Comment on above: Performed By: #### H DELIA, CMP3 #### [facility] [address] [place] [address] WBC (Bld) [#/Vol] 7.0 10*3/uL Normal 3.6-10.7 [facility] Comment on above: Performed By: #### H WELLINGTON LIN3 #### [facility] [address] [place] [address] Basophil percentageon 2021 Basophil percentage 3.1 mg/dL 2.5-4.9 [facility] Work Phone: Chloride [Moles/Vol] 101 mmol/L 98-[address] [facility] Work Phone: [phone] Glucose [Mass/Vol] 68 mg/dL 74-106 [facility] Work Phone: Potassium [Moles/Vol] 3.6 mmol/L 3.5-5.1 [facility] Work Phone: Sodium [Moles/Vol] 138 mmol/L 136-145 [facility] Work Phone: Laboratory - Chemistry and C hemistry - challengeon 09-12-2021 CO2 [Moles/Vol] 31.0 mmol/L 21.0-32.0 [facility] Work Phone: Urea nitrogen/Creatinine [Mass ratio] 16.7 mg/mg 10-20 [facility] Work Phone: No Panel Informationon 09-12 Estimated GFR (MDRD) Amer 53 mL/min >60 [facility] Work Phone: Comment on above: GFR Calc Estimated GFR (MDRD) Non-Af Amer 44 mL/min >60 [facility] Work Phone: Comment on above: Non- GFR Calc Serum or plasma albumin jarad urement (mass/volume)on 09-12-2021 Albumin [Mass/Vol] 3.7 g/dL 3.2-5.0 [facility] Work Phone: Serum or plasma calcium jarad urement (mass/volume)on 09-12-2021 Calcium [Mass/Vol] 9.3 mg/dL 8.5-10.1 [facility] Work Phone: Serum or plasma creatinine m easurement (mass/volume)on 09-12-2021 Creatinine [Mass/Vol] 1.26 mg/dL 0.55-1.02 [place] Work Phone: Comment on above: The validity of the calculated GFR & GFRAA in patients over 70 years has not been determined. Clinical correlation is essential. Serum or plasma urea nitroge n measurement (mass/volume)on 09-12-2021 Urea nitrogen [Mass/Vol] 21 mg/dL 01-06 [facility] Work Phone: CBCon 05-09-2020 Erythrocyte distribution width (RBC) [Ratio] 13.8 % 11.5 - 14.5 % [place], [place] Hematocrit (Bld) [Volume fraction] 43.9 % 35 - 47 % [place] Hemoglobin (Bld) [Mass/Vol] 14.5 g/dL 11.7 - 16 g/dL [place] MCH (RBC) [Entitic mass] 30.4 pg 26 - 34 pg [place] MCHC (RBC) [Mass/Vol] 33.0 % 32 - 36 % [place], [place] MCV (RBC) [Entitic vol] 92.1 fL 79 - 98 fL [place], [place] Platelet mean volume (Bld) [Entitic vol] 7.7 fL 7.4 - 10.4 fL [place] Platelets (Bld) [#/Vol] 285 10*3/uL 140 - 440 10*3/uL [place] RBC (Bld) [#/Vol] 4.77 10*6/uL 3.8 - 5.2 10*6/uL [place] WBC (Bld) [#/Vol] 9.3 10*3/uL 3.6 - 10.7 10*3/uL [place] Test Performed by [facility], [address] [place], [place] [address] , [address] Full PFT Study With Bronchod ilatorOrdered By: Juan Pablo Logan on 06-07-2019 Name: HAKEEM GALLEGO PatientID: [id number] Gender: Female Birthdate: 1945 Study Date: 06/07/2019 1:46:15 Age: 74 Race: White or Height: 62.0 in, 157.5 cm Weight: 160.0 lbs, 72.7 kg Smoke Status: Never Pack Years: Tbco Prod: Cigarettes Ordering Physician: [id number] Interpreting Physician: [id number] Log Rider: KARINA VELASQUEZ Testing Location: [facility] Diagnosis: Cough variant asthma J45.991 Shortness of breath R06.02 Spirometry Units Pred PreDrug Pre%Pred Post Post%Pred %Change FVC L,btps 2.65 2.59 98. 2.52 95. -3. FEV1 L,btps 1.99 2.30 116. 2.29 115. -1. FEV1/FVC (%) % 75. 89. 118. 91. 120. 2. UCN05-71% L/s 1.64 2.98 181. 3.19 194. 7. FEFmax L/s 5.11 6.00 118. 6.25 122. 4. MVV in,btps 77.71 86.06 111. Lung Volumes (Body Box) Units Pred PreDrug Pre%Pred TLC L,btps 4.67 VC L,btps 2.65 IC L,btps 2.07 FRC L,btps 2.60 ERV L,btps 0.58 RV L,btps 2.02 RV/TLC (%) % 43. VTG L,btps RAW H2O/L/s 1.48 SGaw cmH2O/L 0.26 Diffusion (DLCO) Units Pred PreDrug Pre%Pred DLCO ml/min/mmHg,stpd 20.68 13.96 67. DLCOHb ml/min/mmHg,stpd 20.68 13.96 67. VAsb L,btps 4.54 3.68 81. D/VAsb ml/min/mmHg/L,stpd 4.55 3.79 83. D/VAsbHb ml/min/mmHg/L,stpd 4.55 3.79 83. VInsp L 2.45 Hgb g/dl 13.40 COHb % Nitrogen Washout Units Pred PreDrug Pre%Pred TLC L,btps 4.67 4.39 94. VC L,btps 2.65 2.60 98. FRC L,btps 2.60 2.16 83. IC L,btps 2.07 2.22 108. ERV L,btps 0.58 0.38 65. RV L,btps 2.02 1.79 89. RV/TLC (%) % 43. 41. 94. Lung Mechanics Units Pred PreDrug Pre%Pred PImax /MIP cmH2O -68.81 PEmax /MEP cmH2O 90.11 LOWERATOR OPERATOR NOTES Calibration check passed with acceptable system performance. Spirometry best effort, met acceptability and repeatability guidelines. All DLCO quality indicators for acceptability and repeatability met. Patient demonstrated good effort and understanding. Hb unknown. 13.4 used for corrected DLCO. All quality FRC indicators for acceptability and repeatability met. Patient demonstrated good effort and understanding during N2 Washout testing. Albuterol MDI given x 4 puffs. [address]- PRE/[place] [address]- DLCO 63748- FRC GAS Tests to perform: [id number] - FULL PFT STUDY WITH BRONCHODILATOR PHYSICIAN INTERPRETATION Forced expiratory spirograms are normal. Spirograms are good quality and plateau normally. The respiratory flow volume loop is normal. Objective evidence of bronchodilator response is not noted. The Maximal Voluntary Ventilation (MVV) is normal. Diffusion capacity for single breath carbon monoxide is mildly reduced. This suggests a decrease in the alveolar capillary surface area for gas exchange and may be under estimated due to inadequate inspired volume. Diffusion capacity corrects when adjusted for alveolar ventilation. Lung volumes were measured by determining the Functional Residual Capacity (FRC) and determining the lung divisions by a Vital Capacity (VC) manuever. The Total Lung Capacity (TLC) is normal. The Residual Volume (RV) and RV/TLC ratio is normal. [facility] Work Phone: Kaleb, [facility] [place] Incoming Cardiology Results From Claudia/Mahesh - 06/07/2019 5:37 PM EST Name: HAKEEM GALLEGO PatientID: [id number] Gender: Female Birthdate: 1945 Study Date: 06/07/2019 1:46:15 Age: 74 Race: White or Height: 62.0 in, 157.5 cm Weight: 160.0 lbs, 72.7 kg Smoke Status: Never Pack Years: Tbco Prod: Cigarettes Ordering Physician: [id number] Interpreting Physician: [id number] Log Rider: KARINA VELASQUEZ Testing Location: [facility] Diagnosis: Cough variant asthma J45.991 Shortness of breath R06.02 Spirometry Units Pred PreDrug Pre%Pred Post Post%Pred %Change FVC L,btps 2.65 2.59 98. 2.52 95. -3. FEV1 L,btps 1.99 2.30 116. 2.29 115. -1. FEV1/FVC (%) % 75. 89. 118. 91. 120. 2. TGB96-33% L/s 1.64 2.98 181. 3.19 194. 7. FEFmax L/s 5.11 6.00 118. 6.25 122. 4. MVV in,btps 77.71 86.06 111. Lung Volumes (Body Box) Units Pred PreDrug Pre%Pred TLC L,btps 4.67 VC L,btps 2.65 IC L,btps 2.07 FRC L,btps 2.60 ERV L,btps 0.58 RV L,btps 2.02 RV/TLC (%) % 43. VTG L,btps RAW H2O/L/s 1.48 SGaw cmH2O/L 0.26 Diffusion (DLCO) Units Pred PreDrug Pre%Pred DLCO ml/min/mmHg,stpd 20.68 13.96 67. DLCOHb ml/min/mmHg,stpd 20.68 13.96 67. VAsb L,btps 4.54 3.68 81. D/VAsb ml/min/mmHg/L,stpd 4.55 3.79 83. D/VAsbHb ml/min/mmHg/L,stpd 4.55 3.79 83. VInsp L 2.45 Hgb g/dl 13.40 COHb % Nitrogen Washout Units Pred PreDrug Pre%Pred TLC L,btps 4.67 4.39 94. VC L,btps 2.65 2.60 98. FRC L,btps 2.60 2.16 83. IC L,btps 2.07 2.22 108. ERV L,btps 0.58 0.38 65. RV L,btps 2.02 1.79 89. RV/TLC (%) % 43. 41. 94. Lung Mechanics Units Pred PreDrug Pre%Pred PImax /MIP cmH2O -68.81 PEmax /MEP cmH2O 90.11 LOWERATOR OPERATOR NOTES Calibration check passed with acceptable system performance. Spirometry best effort, met acceptability and repeatability guidelines. All DLCO quality indicators for acceptability and repeatability met. Patient demonstrated good effort and understanding. Hb unknown. 13.4 used for corrected DLCO. All quality FRC indicators for acceptability and repeatability met. Patient demonstrated good effort and understanding during N2 Washout testing. Albuterol MDI given x 4 puffs. 14[address]- PRE/[place] [address]- DLCO 24607- FRC GAS Tests to perform: [id number] - FULL PFT STUDY WITH BRONCHODILATOR PHYSICIAN INTERPRETATION Forced expiratory spirograms are normal. Spirograms are good quality and plateau normally. The respiratory flow volume loop is normal. Objective evidence of bronchodilator response is not noted. The Maximal Voluntary Ventilation (MVV) is normal. Diffusion capacity for single breath carbon monoxide is mildly reduced. This suggests a decrease in the alveolar capillary surface area for gas exchange and may be under estimated due to inadequate inspired volume. Diffusion capacity corrects when adjusted for alveolar ventilation. Lung volumes were measured by determining the Functional Residual Capacity (FRC) and determining the lung divisions by a Vital Capacity (VC) manuever. The Total Lung Capacity (TLC) is normal. The Residual Volume (RV) and RV/TLC ratio is normal. [facility] Work Phone: Vital Signs Date Time Vital Sign Value Performing Clinician Facility 04-25-2024 16:51-0500 Body height 160 cm Wilian Solorzano PA-C Work Phone: [facility] 04-25-2024 16:51-0500 Body mass index (BMI) [Ratio] 28.53 kg/m2 Wilian Solorzano PA-C Work Phone: [facility] 04-25-2024 16:51-0500 Body temperature 98.01 [degF] Wilian Solorzano PA-C Work Phone: [facility] 04-25-2024 16:51-0500 Body weight 73.05 kg Wilian Solorzano PA-C Work Phone: [facility] 04-25-2024 16:51-0500 Diastolic blood pressure 64 mm[Hg] Wilian Solorzano PA-C Work Phone: [facility] 04-25-2024 16:51-0500 Heart rate 69 /min Wilian Solorzano PA-C Work Phone: [facility] 04-25-2024 16:51-0500 Respiratory rate 18 /min Wilian Solorzano PA-C Work Phone: [facility] 04-25-2024 16:51-0500 SaO2% (BldA) [Mass fraction] 95 % Wilian Solorzano PA-C Work Phone: [facility] 04-25-2024 16:51-0500 Systolic blood pressure 81 mm[Hg] Wilian Solorzano PA-C Work Phone: [facility] 08-03-2023 16:03-0500 Body height 160 cm Wilian Solorzano PA-C Work Phone: [facility] 08-03-2023 16:03-0500 Body temperature 97.9 [degF] Wilian Solorzano PA-C Work Phone: [facility] 08-03-2023 16:03-0500 Body weight 73.35 kg Wilian Solorzano PA-C Work Phone: [facility] 08-03-2023 16:03-0500 Diastolic blood pressure 79 mm[Hg] Wilian Solorzano PA-C Work Phone: [facility] 08-03-2023 16:03-0500 Heart rate 66 /min Wilian Solorzano PA-C Work Phone: [facility] 08-03-2023 16:03-0500 Respiratory rate 18 /min Wilian Solorzano PA-C Work Phone: [facility] 08-03-2023 16:03-0500 SaO2% (BldA) [Mass fraction] 97 % Wilian Solorzano PA-C Work Phone: [facility] 08-03-2023 16:03-0500 Systolic blood pressure 154 mm[Hg] Wilian Solorzano PA-C Work Phone: [facility] 04-23-2023 13:55-0400 Diastolic blood pressure 92 mm[Hg] Dr. Gary Longoria Work Phone: [facility] 04-23-2023 13:55-0400 Heart rate 69 /min Dr. Gary Longoria Work Phone: [facility] 04-23-2023 13:55-0400 Respiratory rate 16 /min Dr. Gary Longoria Work Phone: [facility] 04-23-2023 13:55-0400 SaO2% (BldA) [Mass fraction] 95 % Dr. Gary Longoria Work Phone: [facility] 04-23-2023 13:55-0400 Systolic blood pressure 155 mm[Hg] Dr. Gary Longoria Work Phone: [facility] 04-23-2023 13:32-0400 Body height 160.[address] Gary Longoria Work Phone: [facility] 04-23-2023 13:32-0400 Body mass index (BMI) [Ratio] 27.6 kg/m2 Dr. Gary Longoria Work Phone: [facility] 04-23-2023 13:32-0400 Body temperature 98.4 [degF] Dr. Gary Longoria Work Phone: [facility] 04-23-2023 13:32-0400 Body weight 70.[address] Gary Longoria Work Phone: [facility] 02-17-2023 11:20-0400 Body height 160.[address] Gary Longoria Work Phone: [facility] 02-17-2023 11:20-0400 Body mass index (BMI) [Ratio] 26.9 kg/m2 Dr. Gary Longoria Work Phone: [facility] 02-17-2023 11:20-0400 Body weight 68.[address] Gary Longoria Work Phone: [facility] 02-17-2023 11:20-0400 Diastolic blood pressure 86 mm[Hg] Dr. Gary Longoria Work Phone: [facility] 02-17-2023 11:20-0400 Heart rate 62 /min Dr. Gary Longoria Work Phone: [facility] 02-17-2023 11:20-0400 Respiratory rate 16 /min Dr. Gary Longoria Work Phone: [facility] 02-17-2023 11:20-0400 Systolic blood pressure 158 mm[Hg] Dr. Gary Longoria Work Phone: [facility] 02-03-2023 07:06-0400 Body temperature 98.2 [degF] Kacie Tristan DO Work Phone: [facility] 02-03-2023 07:06-0400 Diastolic blood pressure 86 mm[Hg] Kacie Tristan DO Work Phone: [facility] 02-03-2023 07:06-0400 Heart rate 80 /min Kacie Tristan DO Work Phone: [facility] 02-03-2023 07:06-0400 Respiratory rate 14 /min Kacie Tristan DO Work Phone: [facility] 02-03-2023 07:06-0400 SaO2% (BldA) [Mass fraction] 100 % Kacie Tristan DO Work Phone: [facility] 02-03-2023 07:06-0400 Systolic blood pressure 141 mm[Hg] Kacie Tristan DO Work Phone: [facility] 02-03-2023 06:11-0400 Body height 160 cm Kacie Tristan DO Work Phone: [facility] 02-03-2023 06:11-0400 Body mass index (BMI) [Ratio] 27.63 kg/m2 Kacie Tristan DO Work Phone: [facility] 02-03-2023 06:11-0400 Body weight 70.76 kg Kacie Tristan DO Work Phone: [facility] 08-01-2022 05:47-0500 Diastolic blood pressure 79 mm[Hg] Tati Dietz MD Work Phone: [facility] 08-01-2022 05:47-0500 Heart rate 83 /min Tati Dietz MD Work Phone: [facility] 08-01-2022 05:47-0500 Respiratory rate 19 /min Tati Dietz MD Work Phone: [facility] 08-01-2022 05:47-0500 SaO2% (BldA) [Mass fraction] 97 % Tati Dietz MD Work Phone: [facility] 08-01-2022 05:47-0500 Systolic blood pressure 140 mm[Hg] Tati Dietz MD Work Phone: [facility] 08-01-2022 04:58-0500 Body height 160 cm Tati Dietz MD Work Phone: [facility] 08-01-2022 04:58-0500 Body mass index (BMI) [Ratio] 28.34 kg/m2 Tati Dietz MD Work Phone: [facility] 08-01-2022 04:58-0500 Body temperature 98.8 [degF] Tati Dietz MD Work Phone: [facility] 08-01-2022 04:58-0500 Body weight 72.58 kg Tati Dietz MD Work Phone: [facility] 10-12-2021 19:19-0400 Diastolic blood pressure 85 mm[Hg] Silvestre Torres MD Work Phone: [facility] 10-12-2021 19:19-0400 Heart rate 73 /min Silvestre Torres MD Work Phone: [facility] 10-12-2021 19:19-0400 Respiratory rate 16 /min Silvestre Torres MD Work Phone: [facility] 10-12-2021 19:19-0400 SaO2% (BldA) [Mass fraction] 93 % Silvestre Torres MD Work Phone: [facility] 10-12-2021 19:19-0400 Systolic blood pressure 162 mm[Hg] Silvestre Torres MD Work Phone: [facility] Encounters Encounter Date Encounter Type Care Provider Facility Start: 05-11-2024 End: 05-11-2024 ambulatory [facility] Facility:[facility] Start: 04-26-2024 ambulatory UNKNOWN PROVIDER Facili ty:[facility] Start: 04-26-2024 End: 04-26-2024 Subsequent hospital visit by physician Radio Reed [facility] Work Phone: Radiology Comment on above: Acute cough [R05.1] Start: 04-26-2024 End: 04-26-2024 Telephone encounter Jim Chavez PA-C Work Phone: [facility] Comment on above: Results Start: 04-25-2024 End: 04-25-2024 ambulatory NOLA JERONIMOLUCAS Facility:[facility] Start: 04-25-2024 End: 04-25-2024 Patient encounter procedure Wilian Solorzano PA-C Work Phone: [facility] Comment on above: Acute cough (Primary Dx) Start: 01-25-2024 ambulatory Gary [facility] Kenneth Facility:[facility] Start: 01-05-2024 End: 01-05-2024 ambulatory [facility] Kenneth Facility:[facility] Start: 09-25-2023 ambulatory Gary [facility] Start: 08-04-2023 ambulatory Christina Meyer RN [facility] Start: 08-04-2023 Follow-up encounter Christina Meyer RN NURSE STRATE[employer]NERSHIP SPECIALIST Comment on above: Covid Follow Up Start: 08-04-2023 Telephone encounter Giovanna renner APRN.ACCOUNT GENERAL MANAGER Work Phone: [facility] Start: 08-03-2023 End: 08-03-2023 ambulatory SELF Facility:[facility] Start: 08-03-2023 End: 08-03-2023 Patient encounter procedure Wilian Solorzano PA-C Work Phone: [facility] Comment on above: URI, acute (Primary Dx) Start: 06-25-2023 End: 06-25-[address] Gary Longoria Work Phone: [facility] Work Phone: Start: 06-25-2023 End: 06-25-[address] Gary Longoria Work Phone: [facility]-Laboratory, Phy Office 3rd Flr Start: 06-25-2023 End: 06-25-2023 [facility] Start: 05-18-2023 Non-patient / Non-visit Dr. Jordan Longoria Work Phone: [facility] Work Phone: Start: 05-11-2023 Non-patient / Non-visit Dr. Jordan Longoria Work Phone: [facility] Start: 04-23-2023 End: 04-23-[address] Gary Longoria Work Phone: [facility] Work Phone: Start: 04-23-2023 End: 04-23-[address] Gary Longoria Work Phone: [facility] Work Phone: Start: 03-11-2023 Non-patient / Non-visit Dr. Jordan Longoria Work Phone: [facility] Work Phone: Start: 03-10-2023 Non-patient / Non-visit Dr. Jordan Longoria Work Phone: [facility] Start: 03-10-2023 End: 03-10-[address] Gary Longoria Work Phone: [facility] Work Phone: Start: 03-10-2023 End: 03-10-[address] Gary Longoria Work Phone: [facility]Cardiovascular Services Work Phone: Start: 02-17-2023 End: 02-17-[address] Gary Longoria Work Phone: [facility] Work Phone: Start: 02-03-2023 End: 02-03-2023 Emergency department patient visit [facility] Start: 02-03-2023 End: 02-03-2023 Emergency department patient visit Kacie Tristan DO Work Phone: [facility] ED Comment on above: SVT (supraventricula r tachycardia) (CMS/HCC) (HCC) (Primary Dx) Start: 12-17-2022 End: 12-17-2022 ambulatory [facility] Work Phone: Start: 12-17-2022 End: 12-17-2022 Patient encounter procedure [facility] Work Phone: Start: 08-01-2022 End: 08-02-2022 [facility] Start: 08-01-2022 End: 08-01-2022 Subsequent hospital visit by physician [facility] Ed Xr Exam Room [address] [facility] Radiology Comment on above: Arrived Start: 08-01-2022 End: 08-01-2022 Emergency department patient visit Tati Dietz MD Work Phone: [facility] ED Comment on above: Chest pain, unspecif ied type (Primary Dx) Start: 07-24-2022 End: 07-24-2022 ambulatory [facility] Work Phone: Start: 07-24-2022 End: 07-24-2022 Patient encounter procedure [facility]-Laboratory, y Office 3rd Flr Start: 05-22-2022 End: 05-22-2022 ambulatory [facility] Work Phone: Start: 05-22-2022 End: 05-22-2022 [facility] Start: 12-12-2021 End: 12-12-2021 [facility] Start: 10-12-2021 End: 10-12-2021 Emergency department patient visit Silvestre Torres MD Work Phone: [facility] Comment on above: Angioedema, initial encounter (Primary Dx); Cat bite, initial encounter Start: 09-24-2021 End: 09-24-2021 Patient encounter procedure [facility]-Ultrasound, [facility] Start: 09-12-2021 End: 09-12-2021 Patient encounter procedure [facility]-Laboratory, y Office 3rd Flr Start: 05-09-2020 End: 05-09-2020 Subsequent hospital visit by physician Remberto Ramos Work Phone: [facility] Laboratory Start: 06-07-2019 End: 06-07-2019 Subsequent hospital visit by physician Juan Pablo Logan MD Work Phone: [facility] Comment on above: Cough variant asthma ; SOB (shortness of breath) Procedures Date Procedure Procedure Detail Performing Clinician Start: 04-26-2024 Radiologic exam ches t 2 views Wilian Solorzano PA-C Work Phone: Start: 08-03-2023 INFLUENZA A&B MOLECU LAR (POC) [facility] Provider Start: 04-23-2023 CT angiography of co ronary arteries Dr. Gary Longoria Work Phone: Start: 02-03-2023 Ecg routine ecg w/le ast 12 lds trcg only w/o i&r Kacie Tristan DO Work Phone: Start: 02-03-2023 Urnls dip stick/tabl et rgnt auto w/o microscopy Kacie Tristan DO Work Phone: Start: 02-03-2023 Basic metabolic pane l calcium total Kacie Sáncheznett DO Work Phone: Start: 08-01-2022 Radiologic exam ches t 2 views Tati Dietz MD Work Phone: Start: 08-01-2022 End: 08-01-2022 Basic metabolic panel calcium total Tati Dietz MD Work Phone: Start: 08-01-2022 Ecg routine ecg w/le ast 12 lds i&r only Tati Dietz MD Work Phone: Start: 07-24-2022 Computed tomography of abdomen and pelvis with contrast Start: 10-12-2021 Comprehensive metabo lic panel Silvestre Torres MD Work Phone: Start: 09-24-2021 US urinary tract Start: 05-09-2020 Blood count complete automated Remberto Rachel Work Phone: Start: 06-07-2019 Brncdilat rspse spmt ry pre&post-brncdilat admn Juan Pablo Logan MD Work Phone: Start: 01-05-2018 Colonoscopy Silvestre miller MD Work Phone: Urine culture Plan of Treatment Date Care Activity Detail Author Start: 01-06-2028 Colon cancer screen colonoscopy Colon cancer screen colonoscopy [facility] Work Phone: Start: 01-06-2028 Screening for malign ant neoplasm of colon [facility] Start: 02-03-2026 Diabetes Screening Diabetes Screenin [facility] Start: 04-25-2025 BP Controlled (<130/80) BP Controlle d (<130/80) [facility] Start: 04-26-2024 End: 04-26-2024 Patient encounter procedure Radiology Comment on above: Acute cough [R05.1] Dr del valle chest. Acute cough [R05.1] Start: 02-21-2024 Covid-19 Vaccine ( season) Covid-19 Vaccine () [facility] Start: 02-21-2024 Influenza vaccination Influenza Vacc ine (#1) [facility] Start: 01-18-2024 DTaP/Tdap/Td vaccine (2 - Tdap) DTaP/Tdap/Td vaccine (2 - Tdap) [facility] Start: 01-18-2024 DTaP/Tdap/Td Vaccine s (2 - Tdap) DTaP/Tdap/Td Vaccines (2 - Tdap) [facility] Start: 01-18-2024 Urine microalbumin profile DTaP,Tdap,Td Vaccine (2 - Tdap) [facility] Start: 06-22-2023 Advance Directive Discussion Advance Directive Discussion [facility] Start: 06-22-2023 Depression Assessment Depression Ass essment [facility] Start: 04-23-2023 Following clinical pathway protocol [facility] Start: 02-20-2023 Covid-19 Vaccine ( season) Covid-19 Vaccine ( season) [facility] Start: 02-20-2023 Influenza vaccination Influenza Vacc ine (#1) [facility] Start: 2021 RSV Vaccine (1 - 1-d ose 75+ series) RSV Vaccine (1 - 1-dose 75+ series) [facility] Start: 02-21-2020 Influenza vaccination Flu vaccine (# 1) [facility] Start: 08-27-2019 Breast cancer screen Breast cancer s fawn [facility] Work Phone: Start: 08-27-2019 Screening for malign ant neoplasm of breast Breast cancer screen [facility] Start: 06-12-2019 Annual Wellness Visi t (AWV) Annual Wellness Visit (AWV) [facility] Start: 2011 Screening for osteoporosis Bone Density Screening [facility] Start: 2006 RSV Vaccine (1 - 1-d ose 60+ series) RSV Vaccine (1 - 1-dose 60+ series) [facility] Start: 1996 Shingles Vaccine (1 of 2) Shingles Vaccine (1 of 2) [facility] Start: 1996 Zoster Vaccines (1 o f 2) Zoster Vaccines (1 of 2) [facility] Start: 1991 Screening for malign ant neoplasm of colon [facility] Start: 1965 Zoster Vaccines (1 o f 2) Zoster Vaccines (1 of 2) [facility] Start: 1964 Annual PCP Team Hand Former Helper jelena Disease Visit Annual PCP Team Chronic Disease Visit [facility] Start: 1964 Anxiety Screening Anxiety Screening [facility] Start: 1964 BP Controlled (<130/80) BP Controlle d (<130/80) [facility] Start: 1964 Depression Screening Depression Scre ening [facility] Start: 1964 Hepatitis C screening [facility] Start: 1958 Depression Screen Depression Screen [facility] Start: 1958 Depression Screening Depression Scre ening [facility] Start: 1956 Lipid panel [facility] Start: 1956 Lipid screen Lipid screen [facility] Work Phone: Start: 1946 Hepatitis B Vaccines (1 of 3 - 3-dose series) Hepatitis B Vaccines (1 of 3 - 3-dose series) [facility] Start: 1946 Hepatitis C screen Hepatitis C scree n [facility] Work Phone: Start: 1946 Hepatitis C screening Hepatitis C [place] Start: 1946 Lipid panel Lipid Panel [facility] Start: 1946 Screening for osteoporosis Bone Density Scan [facility] COVID & INFLUENZA A/ B & RSV NAAT, ROUTINE COVID & INFLUENZA A/B & RSV NAAT, ROUTINE Microbiology Routine URI, acute 08/03/2023 4:38 PM EST [facility] Work Phone: COVID & INFLUENZA A/ B & RSV PCR, ROUTINE COVID & INFLUENZA A/B & RSV PCR, ROUTINE Microbiology Routine Acute cough 04/25/2024 5:18 PM EST [facility] End: 06-07-2019 CT CHEST WO CONTRAST CT CHEST WO CONTRAST Imaging Routine Cough variant asthma SOB (shortness of breath) 1 Occurrences starting 06/07/2019 until 06/07/[address] [facility] Work Phone: Comment on above: 1 Occurrences starti ng 06/07/2019 until 06/07/2019 CT CHEST WO CONTRAST CT CHEST WO CONTRAST Imaging Routine Cough variant asthma SOB (shortness of breath) 06/07/2019 2:30 PM EST [facility] Work Phone: ECG 12 lead ECG 12 lead CV E CG STAT 02/03/2023 6:42 AM EDT [facility] Work Phone: XR Chest PA and Lateral XR CHEST 2V FRONTAL/LAT Radiology STAT Acute cough Ordered: 04/25/2024 [facility] Work Phone: Comment on above: Ordered: 04/25/2024 Immunizations Immunization Date Immunization Notes Care Provider Shar[facility] 04-05-2022 influenza virus vacc ine, unspecified formulation Kacie Tristan DO Work Phone: [facility] 03-15-2018 influenza, high dose seasonal, preservative-free Juan Pablo Logan MD Work Phone: [facility] 03-15-2018 pneumococcal polysaccharide vaccine, 23 valent Juan Pablo Logan MD Work Phone: [facility] Work Phone: 10-07-2016 pneumococcal conjuga te vaccine, 13 valent Juan Pablo Logan MD Work Phone: [facility] Work Phone: 01-17-2014 diphtheria, tetanus toxoids and acellular pertussis vaccine Juan Pablo Logan MD Work Phone: [facility] Work Phone: 08-13-2011 Td, unspecified formulation Juan Pablo Logan MD Work Phone: [facility] Work Phone: Payers Date Payer Category Payer Self-pay [id number] 2022 Medicare [id number] 2022 Private Health Insurance [id number] 2015 Medicare [id number] 2015 Medicare MEDICARE MEDICAR E PART A AND B xxxxxxxxxxx 2015-Present [phone] [address] [address] [place] [address] xxxxxxxxxxx [id number] 2015 Private Health Insurance [id number] 2015 Private Health Insurance [employer] SU[employer] xxxxxxxxxx 2015-Present [phone] [address] [place] [address] xxxxxxxxxx [id number] Private Health Insurance [id number] Unknown [id number] Unknown [id number] Unknown [id number] Unknown [id number] Unknown [id number] Social History Date Type Detail Facility Start: 05-09-2019 End: 08-03-2023 Tobacco smoking status NHIS [facility] Start: 05-09-2019 End: 08-03-2023 Tobacco use and exposure Never used [facility] [place], [place] Start: 05-09-2019 End: 10-12-2021 Alcohol intake Current non-drinker of alcohol (finding) [facility] Phone: Start: 1945 Sex Assigned At Not on file [facility] Work Phone: Start: 1945 Sex Assigned At Female [facility] Start: 10-02-2021 End: 02-03-2023 Exposure to SARS-CoV-2 (event) Not sure [facility]: Start: 02-03-2023 Alcohol intake Ex-drinker (finding) [facility] [facility] [place] Start: 05-31-2020 End: 08-01-2022 History of Social function [facility] Start: 05-31-2020 End: 08-01-2022 Tobacco use panel [facility] Start: 08-01-2022 Alcohol Comment occ. [facility] [place] [facility] Start: 02-17-2023 End: 02-17-2023 Tobacco smoking status IDIS Unknown if ever smoked [facility] National Score (1-10 0), lower number is lower risk Not on file [facility] Start: 08-01-2022 Alcohol intake Current drinke r of alcohol (finding) [facility] Goals Date Patient Goal Desired Activity /State Comment on above: High Blood Pressure: Care Instructions Your Care Instructions If your blood pressure is usually above 140/90, you have high blood pressure, or hypertension. That means the top number is 140 or higher or the bottom number is 90 or higher, or both. Despite what a lot of people think, high blood pressure usually doesn't cause headaches or make you feel dizzy or lightheaded. It usually has no symptoms. But it does increase your risk for heart attack, stroke, and kidney or eye damage. The higher your blood pressure, the more your risk increases. Your doctor will give you a goal for your blood pressure. Your goal will be based on your health and your age. An example of a goal is to keep your blood pressure below 140/90. Lifestyle changes, such as eating healthy and being active, are always important to help lower blood pressure. You might also take medicine to reach your blood pressure goal. Follow-up care is a keller part of your treatment and safety. Be sure to make and go to all appointments, and call your doctor if you are having problems. It's also a good idea to know your test results and keep a list of the medicines you take. How can you care for yourself at home? Medical treatment If you stop taking your medicine, your blood pressure will go back up. You may take one or more types of medicine to lower your blood pressure. Be safe with medicines. Take your medicine exactly as prescribed. Call your doctor if you think you are having a problem with your medicine. Talk to your doctor before you start taking aspirin every day. Aspirin can help certain people lower their risk of a heart attack or stroke. But taking aspirin isn't right for everyone, because it can cause serious bleeding. See your doctor regularly. You may need to see the doctor more often at first or until your blood pressure comes down. If you are taking blood pressure medicine, talk to your doctor before you take decongestants or anti-inflammatory medicine, such as ibuprofen. Some of these medicines can raise blood pressure. Learn how to check your blood pressure at home. Lifestyle changes Stay at a healthy weight. This is especially important if you put on weight around the waist. Losing even 10 pounds can help you lower your blood pressure. If your doctor recommends it, get more exercise. Walking is a good choice. Bit by bit, increase the amount you walk every day. Try for at least 30 minutes on most days of the week. You also may want to swim, bike, or do other activities. Avoid or limit alcohol. Talk to your doctor about whether you can drink any alcohol. Try to limit how much sodium you eat to less than 2,300 milligrams (mg) a day. Your doctor may ask you to try to eat less than 1,500 mg a day. Eat plenty of fruits (such as bananas and oranges), vegetables, legumes, whole grains, and low-fat dairy products. Lower the amount of saturated fat in your diet. Saturated fat is found in animal products such as milk, cheese, and meat. Limiting these foods may help you lose weight and also lower your risk for heart disease. Do not smoke. Smoking increases your risk for heart attack and stroke. If you need help quitting, talk to your doctor about stop-smoking programs and medicines. These can increase your chances of quitting for good. When should you call for help? Call 911 anytime you think you may need emergency care. This may mean having symptoms that suggest that your blood pressure is causing a serious heart or blood vessel problem. Your blood pressure may be over 180/110. For example, call 911 if: You have symptoms of a heart attack. These may include: Chest pain or pressure, or a strange feeling in the chest. Sweating. Shortness of breath. Nausea or vomiting. Pain, pressure, or a strange feeling in the back, neck, jaw, or upper belly or in one or both shoulders or arms. Lightheadedness or sudden weakness. A fast or irregular heartbeat. You have symptoms of a stroke. These may include: Sudden numbness, tingling, weakness, or loss of movement in your face, arm, or leg, especially on only one side of your body. Sudden vision changes. Sudden trouble speaking. Sudden confusion or trouble understanding simple statements. Sudden problems with walking or balance. A sudden, severe headache that is different from past headaches. You have severe back or belly pain. Do not wait until your blood pressure comes down on its own. Get help right away. Call your doctor now or seek immediate care if: Your blood pressure is much higher than normal (such as 180/110 or higher), but you don't have symptoms. You think high blood pressure is causing symptoms, such as: Severe headache. Blurry vision. Watch closely for changes in your health, and be sure to contact your doctor if: Your blood pressure measures 140/90 or higher at least 2 times. That means the top number is 140 or higher or the bottom number is 90 or higher, or both. You think you may be having side effects from your blood pressure medicine. Your blood pressure is usually normal, but it goes above normal at least 2 times. Where can you learn more? Go to [email or web address] and sign in to your Zesty account. Enter X567 in the Search Health Information box to learn more about High Blood Pressure: Care Instructions. If you do not have an account, please click on the Sign Up Now link. Current as of: January 28, 2016 Content Version: [id number] [employer]. Care instructions adapted under license by [employer]. If you have questions about a medical condition or this instruction, always ask your healthcare professional. [employer] disclaims any warranty or liability for your use of this information. High Blood Pressure: Care Instructions Your Care Instructions If your blood pressure is usually above 140/90, you have high blood pressure, or hypertension. That means the top number is 140 or higher or the bottom number is 90 or higher, or both. Despite what a lot of people think, high blood pressure usually doesn't cause headaches or make you feel dizzy or lightheaded. It usually has no symptoms. But it does increase your risk for heart attack, stroke, and kidney or eye damage. The higher your blood pressure, the more your risk increases. Your doctor will give you a goal for your blood pressure. Your goal will be based on your health and your age. An example of a goal is to keep your blood pressure below 140/90. Lifestyle changes, such as eating healthy and being active, are always important to help lower blood pressure. You might also take medicine to reach your blood pressure goal. Follow-up care is a keller part of your treatment and safety. Be sure to make and go to all appointments, and call your doctor if you are having problems. It's also a good idea to know your test results and keep a list of the medicines you take. How can you care for yourself at home? Medical treatment If you stop taking your medicine, your blood pressure will go back up. You may take one or more types of medicine to lower your blood pressure. Be safe with medicines. Take your medicine exactly as prescribed. Call your doctor if you think you are having a problem with your medicine. Talk to your doctor before you start taking aspirin every day. Aspirin can help certain people lower their risk of a heart attack or stroke. But taking aspirin isn't right for everyone, because it can cause serious bleeding. See your doctor regularly. You may need to see the doctor more often at first or until your blood pressure comes down. If you are taking blood pressure medicine, talk to your doctor before you take decongestants or anti-inflammatory medicine, such as ibuprofen. Some of these medicines can raise blood pressure. Learn how to check your blood pressure at home. Lifestyle changes Stay at a healthy weight. This is especially important if you put on weight around the waist. Losing even 10 pounds can help you lower your blood pressure. If your doctor recommends it, get more exercise. Walking is a good choice. Bit by bit, increase the amount you walk every day. Try for at least 30 minutes on most days of the week. You also may want to swim, bike, or do other activities. Avoid or limit alcohol. Talk to your doctor about whether you can drink any alcohol. Try to limit how much sodium you eat to less than 2,300 milligrams (mg) a day. Your doctor may ask you to try to eat less than 1,500 mg a day. Eat plenty of fruits (such as bananas and oranges), vegetables, legumes, whole grains, and low-fat dairy products. Lower the amount of saturated fat in your diet. Saturated fat is found in animal products such as milk, cheese, and meat. Limiting these foods may help you lose weight and also lower your risk for heart disease. Do not smoke. Smoking increases your risk for heart attack and stroke. If you need help quitting, talk to your doctor about stop-smoking programs and medicines. These can increase your chances of quitting for good. When should you call for help? Call 911 anytime you think you may need emergency care. This may mean having symptoms that suggest that your blood pressure is causing a serious heart or blood vessel problem. Your blood pressure may be over 180/110. For example, call 911 if: You have symptoms of a heart attack. These may include: Chest pain or pressure, or a strange feeling in the chest. Sweating. Shortness of breath. Nausea or vomiting. Pain, pressure, or a strange feeling in the back, neck, jaw, or upper belly or in one or both shoulders or arms. Lightheadedness or sudden weakness. A fast or irregular heartbeat. You have symptoms of a stroke. These may include: Sudden numbness, tingling, weakness, or loss of movement in your face, arm, or leg, especially on only one side of your body. Sudden vision changes. Sudden trouble speaking. Sudden confusion or trouble understanding simple statements. Sudden problems with walking or balance. A sudden, severe headache that is different from past headaches. You have severe back or belly pain. Do not wait until your blood pressure comes down on its own. Get help right away. Call your doctor now or seek immediate care if: Your blood pressure is much higher than normal (such as 180/110 or higher), but you don't have symptoms. You think high blood pressure is causing symptoms, such as: Severe headache. Blurry vision. Watch closely for changes in your health, and be sure to contact your doctor if: Your blood pressure measures 140/90 or higher at least 2 times. That means the top number is 140 or higher or the bottom number is 90 or higher, or both. You think you may be having side effects from your blood pressure med (more content not included)... Formatting of this n ote might be different from the original. High Blood Pressure: Care Instructions Your Care Instructions If your blood pressure is usually above 140/90, you have high blood pressure, or hypertension. That means the top number is 140 or higher or the bottom number is 90 or higher, or both. Despite what a lot of people think, high blood pressure usually doesn't cause headaches or make you feel dizzy or lightheaded. It usually has no symptoms. But it does increase your risk for heart attack, stroke, and kidney or eye damage. The higher your blood pressure, the more your risk increases. Your doctor will give you a goal for your blood pressure. Your goal will be based on your health and your age. An example of a goal is to keep your blood pressure below 140/90. Lifestyle changes, such as eating healthy and being active, are always important to help lower blood pressure. You might also take medicine to reach your blood pressure goal. Follow-up care is a keller part of your treatment and safety. Be sure to make and go to all appointments, and call your doctor if you are having problems. It's also a good idea to know your test results and keep a list of the medicines you take. How can you care for yourself at home? Medical treatment If you stop taking your medicine, your blood pressure will go back up. You may take one or more types of medicine to lower your blood pressure. Be safe with medicines. Take your medicine exactly as prescribed. Call your doctor if you think you are having a problem with your medicine. Talk to your doctor before you start taking aspirin every day. Aspirin can help certain people lower their risk of a heart attack or stroke. But taking aspirin isn't right for everyone, because it can cause serious bleeding. See your doctor regularly. You may need to see the doctor more often at first or until your blood pressure comes down. If you are taking blood pressure medicine, talk to your doctor before you take decongestants or anti-inflammatory medicine, such as ibuprofen. Some of these medicines can raise blood pressure. Learn how to check your blood pressure at home. Lifestyle changes Stay at a healthy weight. This is especially important if you put on weight around the waist. Losing even 10 pounds can help you lower your blood pressure. If your doctor recommends it, get more exercise. Walking is a good choice. Bit by bit, increase the amount you walk every day. Try for at least 30 minutes on most days of the week. You also may want to swim, bike, or do other activities. Avoid or limit alcohol. Talk to your doctor about whether you can drink any alcohol. Try to limit how much sodium you eat to less than 2,300 milligrams (mg) a day. Your doctor may ask you to try to eat less than 1,500 mg a day. Eat plenty of fruits (such as bananas and oranges), vegetables, legumes, whole grains, and low-fat dairy products. Lower the amount of saturated fat in your diet. Saturated fat is found in animal products such as milk, cheese, and meat. Limiting these foods may help you lose weight and also lower your risk for heart disease. Do not smoke. Smoking increases your risk for heart attack and stroke. If you need help quitting, talk to your doctor about stop-smoking programs and medicines. These can increase your chances of quitting for good. When should you call for help? Call 911 anytime you think you may need emergency care. This may mean having symptoms that suggest that your blood pressure is causing a serious heart or blood vessel problem. Your blood pressure may be over 180/110. For example, call 911 if: You have symptoms of a heart attack. These may include: Chest pain or pressure, or a strange feeling in the chest. Sweating. Shortness of breath. Nausea or vomiting. Pain, pressure, or a strange feeling in the back, neck, jaw, or upper belly or in one or both shoulders or arms. Lightheadedness or sudden weakness. A fast or irregular heartbeat. You have symptoms of a stroke. These may include: Sudden numbness, tingling, weakness, or loss of movement in your face, arm, or leg, especially on only one side of your body. Sudden vision changes. Sudden trouble speaking. Sudden confusion or trouble understanding simple statements. Sudden problems with walking or balance. A sudden, severe headache that is different from past headaches. You have severe back or belly pain. Do not wait until your blood pressure comes down on its own. Get help right away. Call your doctor now or seek immediate care if: Your blood pressure is much higher than normal (such as 180/110 or higher), but you don't have symptoms. You think high blood pressure is causing symptoms, such as: Severe headache. Blurry vision. Watch closely for changes in your health, and be sure to contact your doctor if: Your blood pressure measures 140/90 or higher at least 2 times. That means the top number is 140 or higher or the bottom number is 90 or higher, or both. You th (more content not included)... Mental Status Date Assessment Result Facility 04-23-2023 Cognitive function Voice/Name [facility] Work Phone: Clinical Notes 10-12-2021 to 04-26-2024 Telephone Encounter - Cynthia Varma PA-C - 04/26/2024 3:26 PM ESTTelephone Encounter - Cynthia Varma PA-C - 04/26/2024 3:26 PM Rc Chambers RT(Emeterio) - 04/26/2024 3:00 PM ESTAttachments Note Date & Type Note Facility 04-26-2024 Telephone encounter Note Spoke to patient. Informed her of x-ray findings. Prescription for doxycycline sent to pharmacy. [facility] 04-26-2024 Miscellaneous Notes Spoke to patient. Informed her of x-ray findings. Prescription for doxycycline sent to pharmacy. documented in this encounter [facility] 04-26-2024 History of Present illness Narrative Radiology Service Progress Note PATIENT NAME: Hakeem Gallego DATE OF SERVICE: April 26, 2024 TIME: 3:17 PM PATIENT IDENTITY VERIFICATION COMPLETED USING TWO (2) IDENTIFIERS: Name and Date of confirmed by patient verbally. FALL SCREENING: Has the patient had 2 falls in the last year or 1 fall with injury or currently using an Ambulatory Assistive Device (Walker, Cane, Wheelchair, Crutches, etc.)? No PATIENT GENDER DATA: Female. status: : No status: NO. PATIENT RELEVANT IMPLANT DATA REVIEWED: Not Applicable PATIENT PRESENTS WITH AN IMPLANTABLE OR ATTACHED INSTITUTE DIRECTOR: No RADIOLOGY DEPARTMENT: General X-ray: Exam(s) Completed: Chest X-Ray PERIPHERAL IV DATA: Not applicable SIGNED BY: RT Adelaide(R) April 26, 2024 3:17 PM documented in this encounter [facility] 04-26-2024 Note HNO ID: [id number] Author: RC KERR RT (R) Service: Radiology Author Type: Log Rider Type: Progress Notes Filed: 04/26/2024 15:18 Note Text: Radiology Service Progress Note PATIENT NAME: Hakeem Gallego DATE OF SERVICE: April 26, 2024 TIME: 3:17 PM PATIENT IDENTITY VERIFICATION COMPLETED USING TWO (2) IDENTIFIERS: Name and Date of confirmed by patient verbally. FALL SCREENING: Has the patient had 2 falls in the last year or 1 fall with injury or currently using an Ambulatory Assistive Device (Walker, Cane, Wheelchair, Crutches, etc.)? No PATIENT GENDER DATA: Female. status: : No status: NO. PATIENT RELEVANT IMPLANT DATA REVIEWED: Not Applicable PATIENT PRESENTS WITH AN IMPLANTABLE OR ATTACHED INSTITUTE DIRECTOR: No RADIOLOGY DEPARTMENT: General X-ray: Exam(s) Completed: Chest X-Ray PERIPHERAL IV DATA: Not applicable SIGNED BY: RT Adelaide(Emeterio) April 26, 2024 3:[address] PM [address]05-2024 Telephone encounter Note Please call the patient and inform them that- Please be aware that your COVID-19, influenza, and RSV test is negative. Please continue the plan of care as discussed at your clinic visit. Follow up with your primary care physician for any new or persisting fever or worsening or changing symptoms. Please refrain from work/school and isolate yourself until - -At least 24 hours have passed since last fever without the use of fever-reducing medications Jim Chavez PA-C [facility] Work Phone: 04-26-2024 Miscellaneous Notes Please call the patient and inform them that- Please be aware that your COVID-19, influenza, and RSV test is negative. Please continue the plan of care as discussed at your clinic visit. Follow up with your primary care physician for any new or persisting fever or worsening or changing symptoms. Please refrain from work/school and isolate yourself until - -At least 24 hours have passed since last fever without the use of fever-reducing medications Jim Chavez PA-C documented in this encounter [facility] 04-25-2024 Note HNO ID: [id number] Author: WILIAN SOLORZANO PA-C Service: ? Author Type: Physician Long Lines Operator Type: Progress Notes Filed: 04/25/2024 17:03 Note Text: Hakeem Gallego is a 79 year old female Patient presents with: Cough: Pt is here thinking that she has bronchitis, coughing, has taken cough drops, Cough 2 weeks Denies fevers Denies runny nose Denies sinus congestion or sore throat She states I only have a cough No past medical history on file. Social History Tobacco Use Smoking status: Never Smokeless tobacco: Never Current Outpatient Medications on File Prior to Visit Medication Sig metoprolol tartrate, short acting, (LOPRESSOR) 25 mg tablet Take 1 tablet by mouth every 12 hours. amLODIPine (NORVASC) 10 mg tablet TAKE ONE TABLET BY MOUTH EVERY DAY cyanocobalamin (VITAMIN B-12) 1,000 mcg tab Take by mouth. No current facility-administered medications on file prior to visit. Lisinopril Physical Exam: BP 81/64 (BP Site: Left Arm, BP Position: Sitting, BP Cuff Size: Regular Adult) Pulse 69 Temp 36.7 ?C (98 ?F) (Left Tympanic) Resp 18 Ht 160 cm (5' 3) Wt 73.1 kg (161 lb 0.7 oz) SpO2 95% BMI 28.53 kg/m? GEN: Pleasant female in no acute distress HEENT: Normocephalic/atraumatic; pupils equal, round and reactive; extra-ocular movements intact, mucous membranes moist, oropharynx clear, tympanic membranes clear, external auditory canals clear, nares clear. NECK: Supple without lymphadenopathy, thyromegaly, or mass. CARDIO: Heart with a regular rate and rhythm without murmurs, rubs, or gallops. Normal S1/S2. LUNGS: Clear to auscultaition bilaterally without wheezes, ronchi, or rales. Good air movement. ASSESSMENT/PLAN: 1. Acute cough - ICD9: 786.2, ICD10: R05.1 - XR CHEST 2V FRONTAL/LAT - METHYLPREDNISOLONE 4 MG TABLETS IN A DOSE PACK - ALBUTEROL SULFATE HFA 90 MCG/ACTUATION AEROSOL INHALER - COVID AND INFLUENZA A/B AND RSV PCR, ROUTINE Wilian Solorzano [facility] 04-25-2024 History of Present illness Narrative Hakeem Gallego is a 79 year old female Patient presents with: Cough: Pt is here thinking that she has bronchitis, coughing, has taken cough drops, Cough 2 weeks Denies fevers Denies runny nose Denies sinus congestion or sore throat She states I only have a cough No past medical history on file. Social History Tobacco Use Smoking status: Never Smokeless tobacco: Never Current Outpatient Medications on File Prior to Visit Medication Sig metoprolol tartrate, short acting, (LOPRESSOR) 25 mg tablet Take 1 tablet by mouth every 12 hours. amLODIPine (NORVASC) 10 mg tablet TAKE ONE TABLET BY MOUTH EVERY DAY cyanocobalamin (VITAMIN B-12) 1,000 mcg tab Take by mouth. No current facility-administered medications on file prior to visit. Lisinopril Physical Exam: BP 81/64 (BP Site: Left Arm, BP Position: Sitting, BP Cuff Size: Regular Adult) Pulse 69 Temp 36.7 C (98 F) (Left Tympanic) Resp 18 Ht 160 cm (5' 3) Wt 73.1 kg (161 lb 0.7 oz) SpO2 95% BMI 28.53 kg/m GEN: Pleasant female in no acute distress HEENT: Normocephalic/atraumatic; pupils equal, round and reactive; extra-ocular movements intact, mucous membranes moist, oropharynx clear, tympanic membranes clear, external auditory canals clear, nares clear. NECK: Supple without lymphadenopathy, thyromegaly, or mass. CARDIO: Heart with a regular rate and rhythm without murmurs, rubs, or gallops. Normal S1/S2. LUNGS: Clear to auscultaition bilaterally without wheezes, ronchi, or rales. Good air movement. ASSESSMENT/PLAN: 1. Acute cough - ICD9: 786.2, ICD10: R05.1 - XR CHEST 2V FRONTAL/LAT - METHYLPREDNISOLONE 4 MG TABLETS IN A DOSE PACK - ALBUTEROL SULFATE HFA 90 MCG/ACTUATION AEROSOL INHALER - COVID & INFLUENZA A/B & RSV PCR, ROUTINE Wilian Solorzano documented in this encounter [facility] 08-04-2023 Miscellaneous Notes Patient calling with questions about covid results/quarantine. Patient denies any new or worsening symptoms of which a provider is not aware:Yes Provided patient message from Giovanna KELLEY from encounter dated today 08/04/23. GO TO THE EMERGENCY ROOM OR CALL 911 IF: * You develop any new symptoms * Your condition worsens * You are concerned or anxious about your condition for any other reason. If you have any questions, you can call Nurse contour sander back. documented in this encounter [facility] 08-04-2023 Miscellaneous Notes Spoke to patient and notified her of positive covid results. Discussed quarantine as she has been sick for 8 days she can go out but should wear a mask if she's still symptomatic. Giovanna Burgess APRN.SERENITY documented in this encounter [facility] 08-03-2023 Note HNO ID: [id number] Author: WILIAN SOLORZANO PA-C Service: ? Author Type: Physician Long Lines Operator Type: Progress Notes Filed: 08/03/2023 16:24 Note Text: Hakeem Gallego is a 78 year old female Patient presents with: Cough: Started Thursday night, runny nose, coughing, sinus congestion, has taken dayquil, Cough Runny nose Cough For 6-7 days Symptoms have stayed the same No change No fevers No improvement then worsening No past medical history on file. Social History Tobacco Use Smoking status: Never Smokeless tobacco: Never Current Outpatient Medications on File Prior to Visit Medication Sig metoprolol tartrate, short acting, (LOPRESSOR) 25 mg tablet Take 1 tablet by mouth every 12 hours. amLODIPine (NORVASC) 10 mg tablet TAKE ONE TABLET BY MOUTH EVERY DAY TURMERIC ORAL Take 1,000 mg by mouth. simvastatin (ZOCOR) 10 mg tablet Take 10 mg by mouth daily at bedtime. (Patient not taking: Reported on 08/03/2023) calcium carbonate (CALTRATE) 600 mg calcium (1,500 mg) tab Take by mouth. (Patient not taking: Reported on 08/03/2023) cyanocobalamin (VITAMIN B-12) 1,000 mcg tab Take by mouth. (Patient not taking: Reported on 08/03/2023) cholecalciferol (VITAMIN D) 1,000 unit tab tablet Take by mouth. (Patient not taking: Reported on 08/03/2023) omeprazole (PRILOSEC) 20 mg capsule Take 20 mg by mouth. (Patient not taking: Reported on 08/03/2023) albuterol HFA (PROVENTIL HFA, VENTOLIN HFA) 90 mcg/actuation inhaler Inhale 2 Puffs as instructed every 4 hours as needed for Wheezing/Shortness of Breath. Or cough (Patient not taking: Reported on 08/03/2023) No current facility-administered medications on file prior to visit. Patient has no known allergies. Physical Exam: BP 154/79 (BP Site: Right Arm, BP Position: Sitting, BP Cuff Size: Regular Adult) Pulse 66 Temp 36.6 ?C (97.9 ?F) (Right Tympanic) Resp 18 Ht 160 cm (5' 3) Wt 73.4 kg (161 lb 11.3 oz) SpO2 97% BMI 28.65 kg/m? GEN: Pleasant female in no acute distress HEENT: Normocephalic/atraumatic; pupils equal, round and reactive; extra-ocular movements intact, mucous membranes moist, oropharynx clear, tympanic membranes clear, external auditory canals clear, nares clear. NECK: Supple without lymphadenopathy, thyromegaly, or mass. CARDIO: Heart with a regular rate and rhythm without murmurs, rubs, or gallops. Normal S1/S2. LUNGS: Clear to auscultaition bilaterally without wheezes, ronchi, or rales. Good air movement. ASSESSMENT/PLAN: 1. URI, acute - ICD9: 465.9, ICD10: J06.9 - Discussed viral etiology and rationale for treatment. - Symptomatic treatment with prn analgesia - Supportive care with fluids and rest - BENZONATATE 100 MG CAPSULE - GUAIFENESIN ER 600 MG TABLET, EXTENDED RELEASE 12 HR - COVID AND INFLUENZA A/B AND RSV NAAT, ROUTINE Wilian Solorzano PA-C [facility] 08-03-2023 History of Present illness Narrative Hakeem Gallego is a 78 year old female Patient presents with: Cough: Started Thursday night, runny nose, coughing, sinus congestion, has taken dayquil, Cough Runny nose Cough For 6-7 days Symptoms have stayed the same No change No fevers No improvement then worsening No past medical history on file. Social History Tobacco Use Smoking status: Never Smokeless tobacco: Never Current Outpatient Medications on File Prior to Visit Medication Sig metoprolol tartrate, short acting, (LOPRESSOR) 25 mg tablet Take 1 tablet by mouth every 12 hours. amLODIPine (NORVASC) 10 mg tablet TAKE ONE TABLET BY MOUTH EVERY DAY TURMERIC ORAL Take 1,000 mg by mouth. simvastatin (ZOCOR) 10 mg tablet Take 10 mg by mouth daily at bedtime. (Patient not taking: Reported on 08/03/2023) calcium carbonate (CALTRATE) 600 mg calcium (1,500 mg) tab Take by mouth. (Patient not taking: Reported on 08/03/2023) cyanocobalamin (VITAMIN B-12) 1,000 mcg tab Take by mouth. (Patient not taking: Reported on 08/03/2023) cholecalciferol (VITAMIN D) 1,000 unit tab tablet Take by mouth. (Patient not taking: Reported on 08/03/2023) omeprazole (PRILOSEC) 20 mg capsule Take 20 mg by mouth. (Patient not taking: Reported on 08/03/2023) albuterol HFA (PROVENTIL HFA, VENTOLIN HFA) 90 mcg/actuation inhaler Inhale 2 Puffs as instructed every 4 hours as needed for Wheezing/Shortness of Breath. Or cough (Patient not taking: Reported on 08/03/2023) No current facility-administered medications on file prior to visit. Patient has no known allergies. Physical Exam: BP 154/79 (BP Site: Right Arm, BP Position: Sitting, BP Cuff Size: Regular Adult) Pulse 66 Temp 36.6 C (97.9 F) (Right Tympanic) Resp 18 Ht 160 cm (5' 3) Wt 73.4 kg (161 lb 11.3 oz) SpO2 97% BMI 28.65 kg/m GEN: Pleasant female in no acute distress HEENT: Normocephalic/atraumatic; pupils equal, round and reactive; extra-ocular movements intact, mucous membranes moist, oropharynx clear, tympanic membranes clear, external auditory canals clear, nares clear. NECK: Supple without lymphadenopathy, thyromegaly, or mass. CARDIO: Heart with a regular rate and rhythm without murmurs, rubs, or gallops. Normal S1/S2. LUNGS: Clear to auscultaition bilaterally without wheezes, ronchi, or rales. Good air movement. ASSESSMENT/PLAN: 1. URI, acute - ICD9: 465.9, ICD10: J06.9 - Discussed viral etiology and rationale for treatment. - Symptomatic treatment with prn analgesia - Supportive care with fluids and rest - BENZONATATE 100 MG CAPSULE - GUAIFENESIN ER 600 MG TABLET, EXTENDED RELEASE 12 HR - COVID & INFLUENZA A/B & RSV NAAT, ROUTINE Wilian Solorzano PA-C documented in this encounter [facility] 02-03-2023 Emergency department Note EMERGENCY DEPARTMENT ENCOUNTER Pt Name: [...] physician has previously referred her to a .net developer however she has yet to establish. Nursing [...] FINAL IMPRESSION 1. SVT (supraventricular tachycardia) (CMS/HCC) ([facility]) DISPOSITION PATIENT REFERRED TO: [facility] Cardiology [address] [facility] [address] Schuyler Longoria MD [address] [facility] [address] [facility] ED [address] [facility] [address] As needed, If symptoms worsen DISCHARGE MEDICATIONS: [...] Tristan DO 02/03/23 0657 Patient ambulated from [facility] stretcher to bedside commode, then to [...] no further needs. documented in this encounter [facility] 02-03-2023 Emergency department Triage note Patient ambulated from [facility] stretcher to bedside commode, then to [...] within reach. Patient has no further needs. [facility] 02-03-2023 Physician Emergency department Note EMERGENCY DEPARTMENT ENCOUNTER Pt Name: [...] physician has previously referred her to a .net developer however she has yet to establish. Nursing [...] of 02/03/23 0636 SVT (supraventricular tachycardia) (CMS/HCC) ([facility]) Medications sodium chloride 0.9 % bolus 1,000 [...] tachycardia) (CMS/HCC) (HCC) DISPOSITION PATIENT REFERRED TO: [facility] Cardiology [address] [facility] [address] Schuyler Longoria MD [address] [facility] [address] [facility] [address] [facility] ED [address] [facility] [address] As needed, If symptoms worsen DISCHARGE MEDICATIONS: [...] Medicine Provider Kacie Tristan DO 02/03/23 0657 [facility] 08-01-2022 Emergency department Note EMERGENCY DEPARTMENT ENCOUNTER Pt Name: Hakeem Gallego Birthdate 1945 Date of evaluation: 08/01/2022 CHIEF COMPLAINT Chief Complaint Patient presents with Chest Pain HISTORY OF PRESENT ILLNESS HPI Hakeem Gallego is a 77 y.o. female who presents to the emergency department with chest pain, tingling. Associated symptoms of sweats. . She took some aspirin. The chest pain is resolved. She reports she is he is grieving the of a close friend she found out about it less than 24 hours ago. She otherwise did have some wine. REVIEW OF SYSTEMS Review of Systems CURRENT MEDICATIONS Previous Medications CETIRIZINE (ZYRTEC) 10 [...] Yes Comment: occ. Drug use: Never SCREENINGS HEART Score History: Slightly suspicious ECG: Normal Age: 65+ Risk Factors: 1-2 risk factors Troponin: Less than or equal to normal limit HEART Score: 3 PHYSICAL EXAM Vitals: 08/01/22 0458 08/01/22 0534 08/01/22 0547 BP: (!) 160/86 (!) 140/79 (!) 140/79 Pulse: 87 84 83 Resp: 16 Temp: 37.1 C (98.8 F) TempSrc: Oral SpO2: 99% 95% 97% Weight: 72.6 kg (160 lb) Height: 1.6 m (5' 3) Physical Exam Constitutional: General: She is not in acute distress. Appearance: She is well-developed. She is not ill-appearing or toxic-appearing. HENT: Head: Atraumatic. Right Ear: External ear normal. Left Ear: External ear normal. Nose: Nose normal. Mouth/Throat: Mouth: Mucous membranes are moist. Pharynx: Oropharynx is clear. No oropharyngeal exudate. Eyes: General: No scleral icterus. Extraocular Movements: Extraocular movements intact. Pupils: Pupils are equal, round, and reactive to light. Neck: Vascular: No JVD. Cardiovascular: Rate and Rhythm: Normal rate and regular rhythm. Pulses: Normal pulses. Radial pulses are 2+ on the right side and 2+ on the left side. Dorsalis pedis pulses are 2+ on the right side and 2+ on the left side. Posterior tibial pulses are 2+ on the right side and 2+ on the left side. Heart sounds: Normal heart sounds. No murmur heard. No friction rub. No gallop. Pulmonary: Effort: Pulmonary effort is normal. No respiratory distress. Breath sounds: Normal breath sounds. No stridor. No wheezing, rhonchi or rales. Chest: Chest wall: No tenderness. Abdominal: General: There is no distension. Palpations: Abdomen is soft. There is no mass. Tenderness: There is no abdominal tenderness. There is no guarding or rebound. Hernia: No hernia is present. Musculoskeletal: General: No swelling or deformity. Cervical back: Normal range of motion and neck supple. Right lower leg: No edema. Left lower leg: No edema. Lymphadenopathy: Cervical: No cervical adenopathy. Skin: General: Skin is warm and dry. Capillary Refill: Capillary refill takes less than 2 seconds. Coloration: Skin is not jaundiced. Findings: No bruising, erythema or rash. Neurological: Mental Status: She is alert and oriented to person, place, and time. Gait: Gait is intact. Deep Tendon Reflexes: Reflexes normal. Psychiatric: Mood and Affect: Mood normal. Behavior: Behavior normal. Thought Content: Thought content normal. Judgment: Judgment normal. Medical decision making Medical Decision Making Amount and/or Complexity of Data Reviewed Labs: ordered. Radiology: ordered. ECG/medicine tests: ordered. DIAGNOSTIC RESULTS Procedures/EKG: Physician EKG interpretation can be found in [facility] if done RADIOLOGY (Per Emergency Physician): Radiology: X-ray was reviewed and was independently interpreted by myself: Chest: was negative for infiltrate, effusion, pneumothorax, or wide mediastinum Interpretation per the Radiologist below, if available at the time of this note: XR chest 2 views Final Result No convincing acute process seen. Report Dictated on Electronically Signed By: Guero Nur Electronically Signed Date/Time: 08/01/2022 6:03 AM EST ED BEDSIDE ULTRASOUND: LABS: Labs Reviewed BASIC METABOLIC PANEL - Abnormal Result Value SODIUM 137 POTASSIUM 3.7 CHLORIDE 102 CARBON DIOXIDE 32 (*) UREA NITROGEN 19 (*) CREATININE 1.02 GLUCOSE 110 (*) CALCIUM 9.4 ANION GAP 4 eGFR 57.1 (*) CBC WITH AUTO DIFFERENTIAL - Abnormal Auto WBC 10.6 RBC 4.84 Hemoglobin 14.6 Hematocrit 43.6 MCV 90.1 MCH 30.2 MCHC 33.5 RDW 12.9 Platelets 377 MPV 9.0 Neutrophils Relative 52.2 Lymphocytes Relative 33.5 Monocytes Relative 10.9 (*) Eosinophils Relative 2.1 Basophils Relative 0.7 Immature Grans % 0.6 (*) Neutrophils Absolute 5.5 Lymphocytes Absolute 3.5 Monocytes Absolute 1.2 (*) Eosinophils Absolute 0.2 Basophils Absolute 0.1 Immature Grans Absolute 0.1 (*) TROPONIN I - Normal TROPONIN I <0.012 Narrative: Patients with high levels of Biotin oral intake (ie >5 mg/day) may have falsely decreased Troponin levels. D-DIMER,QUANTITATIVE - Normal D-DIMER, INNOVANCE 0.40 Narrative: Innovance D-Dimer values of <0.50 mg/L FEU can be used in combination with a pre-test probability model (e.g. Well's) to exclude pulmonary embolism (PE) disease, as well as an aid in the diagnosis of deep vein thrombosis (DVT). Medications - No data to display Diagnoses as of 08/01/22 0615 Chest pain, unspecified type MDM elements: The patient presented with chief complaint of chest pain. The differential diagnosis associated with this patient's presentation includes ACS, PE (unlikely as lab d dimer is normal), pneumothorax, pneumonia, aortic dissection. Our workup consisted of ordering/reviewing: cxr. Consideration for escalation of care with: Admission/observation however heart score is 3 low risk for ACS, hence risk from hospitalization outweighs the benefit . Patient is in agreement with this plan. REVAL: CRITICAL CARE TIME CONSULTS: None PROCEDURES: Procedures FINAL IMPRESSION 1. Chest pain, unspecified type DISPOSITION/PLAN DISPOSITION Discharge 08/01/2022 06:15:10 AM PATIENT REFERRED TO: Schuyler Longoria MD [address] [id number] In 2 days I prescribed: New Prescriptions No medications on file (Comment: this report has been produced using speech recognition software and may contain errors related to that system including errors in grammar, punctuation, and spelling, as well as words and phrases that may be inappropriate) I TATI DIETZ MD am the deboning team leader of record. TATI DIETZ MD (electronically signed) Tati Dietz MD 08/01/22 0616 Patient to room 3 with c/o chest tingling at 0330 this am that has resolved. Patient reports drinking wine this morning and an hour later had tingling in her chest that radiated to her back. Patient reports breaking out in a sweat, denies nausea and vomiting. Patient took two 325 mg aspirin. EKG completed, V/S obtained, call light within reach. documented in this encounter [facility] 08-01-2022 Emergency department Triage note Patient to room 3 with c/o chest tingling at 0330 this am that has resolved. Patient reports drinking wine this morning and an hour later had tingling in her chest that radiated to her back. Patient reports breaking out in a sweat, denies nausea and vomiting. Patient took two 325 mg aspirin. EKG completed, V/S obtained, call light within reach. [facility] 08-01-2022 Physician Emergency department Note EMERGENCY DEPARTMENT ENCOUNTER Pt Name: Hakeem Gallego Birthdate 1945 Date of evaluation: 08/01/2022 CHIEF COMPLAINT Chief Complaint Patient presents with Chest Pain HISTORY OF PRESENT ILLNESS HPI Hakeem Gallego is a 77 y.o. female who presents to the emergency department with chest pain, tingling. Associated symptoms of sweats. . She took some aspirin. The chest pain is resolved. She reports she is he is grieving the of a close friend she found out about it less than 24 hours ago. She otherwise did have some wine. REVIEW OF SYSTEMS Review of Systems CURRENT MEDICATIONS Previous Medications CETIRIZINE (ZYRTEC) 10 [...] Yes Comment: occ. Drug use: Never SCREENINGS HEART Score History: Slightly suspicious ECG: Normal Age: 65+ Risk Factors: 1-2 risk factors Troponin: Less than or equal to normal limit HEART Score: 3 PHYSICAL EXAM Vitals: 08/01/22 0458 08/01/22 0534 08/01/22 0547 BP: (!) 160/86 (!) 140/79 (!) 140/79 Pulse: 87 84 83 Resp: 16 21 19 Temp: 37.1 C (98.8 F) TempSrc: Oral SpO2: 99% 95% 97% Weight: 72.6 kg (160 lb) Height: 1.6 m (5' 3) Physical Exam Constitutional: General: She is not in acute distress. Appearance: She is well-developed. She is not ill-appearing or toxic-appearing. HENT: Head: Atraumatic. Right Ear: External ear normal. Left Ear: External ear normal. Nose: Nose normal. Mouth/Throat: Mouth: Mucous membranes are moist. Pharynx: Oropharynx is clear. No oropharyngeal exudate. Eyes: General: No scleral icterus. Extraocular Movements: Extraocular movements intact. Pupils: Pupils are equal, round, and reactive to light. Neck: Vascular: No JVD. Cardiovascular: Rate and Rhythm: Normal rate and regular rhythm. Pulses: Normal pulses. Radial pulses are 2+ on the right side and 2+ on the left side. Dorsalis pedis pulses are 2+ on the right side and 2+ on the left side. Posterior tibial pulses are 2+ on the right side and 2+ on the left side. Heart sounds: Normal heart sounds. No murmur heard. No friction rub. No gallop. Pulmonary: Effort: Pulmonary effort is normal. No respiratory distress. Breath sounds: Normal breath sounds. No stridor. No wheezing, rhonchi or rales. Chest: Chest wall: No tenderness. Abdominal: General: There is no distension. Palpations: Abdomen is soft. There is no mass. Tenderness: There is no abdominal tenderness. There is no guarding or rebound. Hernia: No hernia is present. Musculoskeletal: General: No swelling or deformity. Cervical back: Normal range of motion and neck supple. Right lower leg: No edema. Left lower leg: No edema. Lymphadenopathy: Cervical: No cervical adenopathy. Skin: General: Skin is warm and dry. Capillary Refill: Capillary refill takes less than 2 seconds. Coloration: Skin is not jaundiced. Findings: No bruising, erythema or rash. Neurological: Mental Status: She is alert and oriented to person, place, and time. Gait: Gait is intact. Deep Tendon Reflexes: Reflexes normal. Psychiatric: Mood and Affect: Mood normal. Behavior: Behavior normal. Thought Content: Thought content normal. Judgment: Judgment normal. Medical decision making Medical Decision Making Amount and/or Complexity of Data Reviewed Labs: ordered. Radiology: ordered. ECG/medicine tests: ordered. DIAGNOSTIC RESULTS Procedures/EKG: Physician EKG interpretation can be found in [facility] if done RADIOLOGY (Per Emergency Physician): Radiology: X-ray was reviewed and was independently interpreted by myself: Chest: was negative for infiltrate, effusion, pneumothorax, or wide mediastinum Interpretation per the Radiologist below, if available at the time of this note: XR chest 2 views Final Result No convincing acute process seen. Report Dictated on Electronically Signed By: Guero Nur Electronically Signed Date/Time: 08/01/2022 6:03 AM EST ED BEDSIDE ULTRASOUND: LABS: Labs Reviewed BASIC METABOLIC PANEL - Abnormal Result Value SODIUM 137 POTASSIUM 3.7 CHLORIDE 102 CARBON DIOXIDE 32 (*) UREA NITROGEN 19 (*) CREATININE 1.02 GLUCOSE 110 (*) CALCIUM 9.4 ANION GAP 4 eGFR 57.1 (*) CBC WITH AUTO DIFFERENTIAL - Abnormal Auto WBC 10.6 RBC 4.84 Hemoglobin 14.6 Hematocrit 43.6 MCV 90.1 MCH 30.2 MCHC 33.5 RDW 12.9 Platelets 377 MPV 9.0 Neutrophils Relative 52.2 Lymphocytes Relative 33.5 Monocytes Relative 10.9 (*) Eosinophils Relative 2.1 Basophils Relative 0.7 Immature Grans % 0.6 (*) Neutrophils Absolute 5.5 Lymphocytes Absolute 3.5 Monocytes Absolute 1.2 (*) Eosinophils Absolute 0.2 Basophils Absolute 0.1 Immature Grans Absolute 0.1 (*) TROPONIN I - Normal TROPONIN I <0.012 Narrative: Patients with high levels of Biotin oral intake (ie >5 mg/day) may have falsely decreased Troponin levels. D-DIMER,QUANTITATIVE - Normal D-DIMER, INNOVANCE 0.40 Narrative: [employer] D-Dimer values of <0.50 mg/L FEU can be used in combination with a pre-test probability model (e.g. Well's) to exclude pulmonary embolism (PE) disease, as well as an aid in the diagnosis of deep vein thrombosis (DVT). Medications - No data to display Diagnoses as of 08/01/22 0615 Chest pain, unspecified type MDM elements: The patient presented with chief complaint of chest pain. The differential diagnosis associated with this patient's presentation includes ACS, PE (unlikely as lab d dimer is normal), pneumothorax, pneumonia, aortic dissection. Our workup consisted of ordering/reviewing: cxr. Consideration for escalation of care with: Admission/observation however heart score is 3 low risk for ACS, hence risk from hospitalization outweighs the benefit . Patient is in agreement with this plan. REVAL: CRITICAL CARE TIME CONSULTS: None PROCEDURES: Procedures FINAL IMPRESSION 1. Chest pain, unspecified type DISPOSITION/PLAN DISPOSITION Discharge 08/01/2022 06:15:10 AM PATIENT REFERRED TO: Schuyler Longoria MD [address] [facility] [address] In 2 days I prescribed: New Prescriptions No medications on file (Comment: this report has been produced using speech recognition software and may contain errors related to that system including errors in grammar, punctuation, and spelling, as well as words and phrases that may be inappropriate) I TATI DIETZ MD am the deboning team leader of record. TATI DIETZ MD (electronically signed) Tati Dietz MD 08/01/22615 [facility] Work Phone: 10-12-2021 Hospital Discharge instructions Silvestre Torres MD - 10/12/2021 Take [...] cannot be sent through Care Everywhere.Bites: Animal (Norwegian)Angioedema (Norwegian)[facility] Work Phone: Evaluation note Diagnosis Cough variant asthma SOB (shortness of breath) Shortness of breath documented in this encounter [facility] Work Phone: Evaluation noteNo assessment information available [facility] Work Phone: Evaluation note* Diagnosis Angioedema, initial encounter- Primary Cat bite, initial encounter documented in this encounter [facility] Work Phone: Evaluation note* Diagnosis SVT (supraventricular tachycardia) (CMS/HCC) (HCC)- Primary Other specified cardiac dysrhythmias [facility]* Diagnosis Onset Date Resolution Status Essential hypertension chron ic Hyperlipidemia chronic Paroxysmal supraventricular tachycardia [facility] Work Phone: Evaluation note* Diagnosis URI, acute- Primary Acute upper respiratory infections of unspecified site [facility] Acute cough- Primary [facility]* Diagnosis Chest pain, unspecified type- Primary documented in this encounter [facility] Discharge instructions* Attachments The following attachments cannot be sent through Care Everywhere. * Paroxysmal Supraventricular Tachycardia [facility] ([place]wegian[facility] Attachments The following attachments cannot be sent through Care Everywhere. * Chest Pain Discharge Instructions (Norwegian) documented in this [facility] for referral (narrative)* Consultation (Routine) - Pending Review Specialty Diagnoses / Procedures Referred By Contac t Referred To Contact Cardiology Diagnoses SVT (supraventricular tachycardia) (CMS/HCC) (HCC) Procedures CT OFFICE/OUTPATIENT [facility] MDM 60-74 MINUTES Kacie Tristan DO [address] [place] [address] [facility] [address] [place] [address] Referral ID Status Reason Start Date Expiration Date Visits Requested Visits Authorized [id number] Pending Review Specialty Services Required 02/03/2023 02/03/2024 1 1 [facility] for referral (narrative)* Consultation (Urgent) - Pending Review Specialty Diagnoses / Procedures Referred By Contac t Referred To Contact Cardiology Diagnoses Chest pain, unspecified type Procedures CT OFFICE/OUTPATIENT [facility] MDM [id number] MINUTES Tati Dietz MD [address] [place] [address] 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 ACP-Advance Directive ACP-Power of Director Skills Latest Code Status on File Code Status Date Activated Date Inactivated Comments Full Code 01/05/2018 9:18 AM 01/06/2018 2:46 AM Documents on File Type Date Recorded 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 Advance Directives and Living Will Power of Director Skills Latest Code Status on File Code Status Date Activated Date Inactivated Comments Full Code 01/05/2018 9:18 AM 01/06/2018 2:46 AM Reason for Referral Status Reason Specialty Diagnoses / Procedures Referre d By Contact Referred To Contact Closed Radiology Diagnoses Cough variant asthma SOB (shortness of breath) Procedures CT CHEST WO CONTRAST Juan Pablo Logan MD [address] [place] [address] Status Reason Specialty Diagnoses / Procedures Re ferred By Contact Referred To Contact Closed Diagnoses Cough variant asthma SOB (shortness of breath) Procedures Full PFT Study With Bronchodilator Juan Pablo Logan MD [address] [place] [address] Juan Pablo Logan MD [address] [facility] [place] [address] [place] [address] Chief Complaint and Reason for Visit Chief Complaint KIDNEY DISEASE Chief Complaint KIDNEY DISEASE LABWORK Chief Complaint ABDOMINAL PAIN Chief Complaint PALP (KENNETH) Chest pain, unspecified Chest pain, unspecified Amb Documentation Reason for Visit Essential hypertensi on Hyperlipidemia Paroxysmal supraventricular tachycardia Chief Complaint PALP (KENNETH) Chest pain, unspecified Chest pain, unspecified Amb Documentation Chest pain, unspecified Reason for Visit Essential hypertensi on Hyperlipidemia Paroxysmal supraventricular tachycardia Chief Complaint Chest pain, unspecif ied Chest pain, unspecified Amb Documentation Chest pain, unspecified Chest pain, unspecified Amb Documentation Summary Purpose Family History No Family History Records Found Relationship Condition Age at Onset Recorded Date/T yomaira father Malignant neoplasm Unknown Hypertension Unknown mother Hypertension Unknown Malignant neoplasm Unknown Dementia Unknown Cerebrovascular accident (CVA) Unknown sister Arthritis Unknown Health Concerns Infection Onset Date Last Indicated Resolved Time COVID-19 Confirmed 08/03/2023 08/03/2023 Additional Source Comments Goals (unrecognized section and content) Goals may be documented in a n alternate sectionGoals may be documented in an alternate sectionGoals may be documented in an alternate sectionGoals may be documented in an alternate sectionGoals may be documented in an alternate sectionGoals may be documented in an alternate sectionGoals may be documented in an alternate sectionGoals may be documented in an alternate sectionGoals may be documented in an alternate sectionGoals may be documented in an alternate section Reason for Visit (unrecogniz ed section and content) Reason Comments Animal Bite Reason Comments Rapid Heart Rate Reason Comments Cough Started Thursday night , runny nose, coughing, sinus congestion, has taken dayquil, Reason Comments Covid Follow Up Reason Comments Cough Pt is here thinking that she has bronchitis, coughing, has taken cough drops, Reason Comments Results Reason Comments Chest Pain Ordered Prescriptions (unrec ognized section and content) Prescription Sig Dispensed Refills Start Date End Da te amoxicillin-clavulanate (AUGMENTIN) 875-125 MG per tablet Take 1 tablet by mouth 2 times daily for 10 days 20 tablet 0 10/12/2021 10/22/2021 methylPREDNISolone (MEDROL, CHRISTIANO,) 4 MG tablet Take by mouth. 1 kit 0 10/12/2021 10/18/2021 famotidine (PEPCID) 40 MG tablet Take 1 tablet by mouth daily 7 tablet 0 10/12/2021 diphenhydrAMINE (BENADRYL) 50 MG capsule Take 1 capsule by mouth 4 times daily for 5 days 20 capsule 0 10/12/2021 10/17/2021 Scheduled Active and Recently Administ ered Medications (unrecognized section and content) Medication Order 10/10/2021 10/11/2021 10/12/2021 dexamethasone (PF) (DECADRON) injection 10 mg (COMPLETED) 10 mg, IntraVENous, ONCE, On 10/12/21 at 1713, For 1 dose, headache 1721 (Given - Provid er: Enid Magana RN) diphenhydrAMINE (BENADRYL) injection 25 mg (COMPLETED) 25 mg, IntraVENous, ONCE, 1 dose, On 10/12/21 at 1713 1720 (Given - Provid er: Enid Magana RN) famotidine (PEPCID) 20 mg in sodium chloride (PF) 10 mL injection (COMPLETED) 20 mg, IntraVENous, ONCE, 1 dose, On 10/12/21 at 1713 1718 (Given - Provid er: Enid Magana RN) sodium chloride flush 0.9 % injection 3 mL(Linked Group 1) 3 mL, IntraVENous, EVERY 8 HOURS, First dose on 10/12/21 at 1713, Until Discontinued, Flush line with 3-5 mL 1713 (Due) tranexamic acid (CYKLOKAPRON) 1,000 mg in sodium chloride 0.9 % 50 mL IVPB (COMPLETED) 1,000 mg, IntraVENous, at 200 mL/hr, Administer over 15 Minutes, ONCE, On 10/12/21 at 1739, For 1 dose 1835 (New Bag - Prov ider: Enid Magana RN)1850 (Stopped - Provider: Jigar Cuenca RN) Linked Groups Order Group 1: Saline lock [...] Provider: Danyelle Prabhakar RN - Comment: from [facility])0836 (Stopped - Provider: Domi Sr RN) Care Teams (unrecognized sec tion and content) Clinic Specialist Relationship Specialty Start Date End Date Nola Zamora MD PCP - General Internal Medicine 08/09/15 Team Status: Active Member Role Status Dates Dr. Gary Longoria MD Family Provider Active Dr. Gary Longoria MD Primary Care Provider Active Team Status: Inactive Member Role Status Dates Dr. Gary Longoria MD Primary Care Provider, Attending Provider Active Team Status: Active Member Role Status Dates Dr. Gary Longoria MD Primary Care Provider, Attending Provider Active Team Status: Inactive Member Role Status Dates Dr. Gary Longoria MD Primary Care Provi nely, Attending Provider, Referring Provider Active Clinic Specialist Relationship Specialty Start Date End Date Schuyler Longoria MD [address] [phone] PCP - General Geriatric Medicine 08/01/22 Team Status: Inactive Member Role Status Dates Dr. Gary Longoria MD Primary Care Provider, Referring Provider Active Dr. Susannah Bryan MD Attending Provider Active Team Status: Active Member Role Status Dates Dr. Gary Longoria MD Primary Care Provider Active Dr. Susannah Bryan MD Attending Provider , Referring Provider, Other Provider Active Team Status: Active Member Role Status Dates Dr. Gary Longoria MD Primary Care Provider Active Guero Oquendo SPA THERAPIST, SPA THERAPIST-C Attending Provider Active Team Status: Inactive Member Role Status Dates Dr. aGry Longoria MD Primary Care Provider Active Dr. Susannah Bryan MD Attending Provider, Referring Pr ovider Active Team Status: Inactive Member Role Status Dates Dr. Gary Longoria MD Primary Care Provider Active Guero Oquendo SPA THERAPIST, SPA THERAPIST-C Attending Provider, Referring Pro vider Active Team Status: Active Member Role Status Dates Dr. Gary Longoria MD Primary Care Provider Active Guero Oquendo SPA THERAPIST, SPA THERAPIST-C Referring Provider, Other Provide r Active Dr. Paresh Davidson MD Attending Provider Active Clinic Specialist Relationship Specialty Start Date End Date Nola Zamora PCP - General Internal Medicine 08/08/18 Clinic Specialist Relationship Specialty Start Date End Date Nola Zamora PCP - General Internal Medicine 08/08/18 Clinic Specialist Relationship Specialty Start Date End Date Nola Zamora PCP - General Internal Medicine 08/08/18 Clinic Specialist Relationship Specialty Start Date End Date Nola Zamora MD PCP - General Internal Medicine 08/08/18 Clinic Specialist Relationship Specialty Start Date End Date Nola Zamora MD PCP - General Internal Medicine 08/08/18 Clinic Specialist Relationship Specialty Start Date End Date Nola Zamora MD PCP - General Internal Medicine 08/08/18 Clinic Specialist Relationship Specialty Start Date End Date Schuyler Longoria MD [address] [facility] [address] [place] [phone] PCP - General Geriatric Medicine 08/01/22 Clinic Specialist Relationship Specialty Start Date End Date Schuyler Longoria MD [address] [facility] [address] [place] [phone] PCP - General Geriatric Medicine 08/01/22 INFORMATION SOURCE (unrecogn ized section and content) DATE CREATED AUTHOR 10/16/2021 [facility] DATE CREATED AUTHOR AUTHOR'S ORGANIZ ATION 02/13/2023 [facility] DATE CREATED AUTHOR AUTHOR'S ORGANIZ ATION 04/27/2024 [facility] DATE CREATED AUTHOR AUTHOR'S ORGANIZ ATION 04/28/2024 [facility] DATE CREATED AUTHOR AUTHOR'S ORGANIZ ATION 06/13/2024 [facility] Source Comments (unrecognize d section and content) In the event this informatio n is protected by the Federal Confidentiality of Alcohol and Drug Abuse Patient Records regulations: The Federal rules restrict any use of the information to criminally investigate or prosecute any alcohol or drug abuse patient.[facility] Hospital[facility] the event this information is protected by the Federal Confidentiality of Alcohol and Drug Abuse Patient Records regulations: The Federal rules restrict any use of the information to criminally investigate or prosecute any alcohol or drug abuse patient.[facility] Hospital[facility] the event this information is protected by the Federal Confidentiality of Alcohol and Drug Abuse Patient Records regulations: The Federal rules restrict any use of the information to criminally investigate or prosecute any alcohol or drug abuse patient.[facility] HospitalIn the event this information is protected by the Federal Confidentiality of Alcohol and Drug Abuse Patient Records regulations: The Federal rules restrict any use of the information to criminally investigate or prosecute any alcohol or drug abuse patient.[facility] HospitalIn the event this information is protected by the Federal Confidentiality of Alcohol and Drug Abuse Patient Records regulations: The Federal rules restrict any use of the information to criminally investigate or prosecute any alcohol or drug abuse patient.[facility] HospitalIn the event this information is protected by the Federal Confidentiality of Alcohol and Drug Abuse Patient Records regulations: The Federal rules restrict any use of the information to criminally investigate or prosecute any alcohol or drug abuse patient.[facility] HospitalIn the event this information is protected by the Federal Confidentiality of Alcohol and Drug Abuse Patient Records regulations: The Federal rules restrict any use of the information to criminally investigate or prosecute any alcohol or drug abuse patient.[facility] FOR RECORDS PERTAINING TO PATIENTS WHO ARE [...] BE BASED ON THE PRIMARY CLINICAL RECORDS. [facility] provides no warranty or guarantee of the accuracy or completeness of information in this document.
== END | disposition home or self-care (01) ==
LOC: RAD 11:05
PROVIDERS: PCP Family Medicine Geriatric Medicine; Referring Provider Family Medicine Geriatric Medicine; Visit Provider Family Medicine Geriatric Medicine
DX: M25.522 Pain in left elbow (principal); M25.561 Pain in right knee
CPT/HCPCS: 73080; 73562

== ENCOUNTER → 2025-01-18 | Outpatient (CLI) | payer MEDICARE, SELFPAY ==
[2025-01-18 14:39] LABS: Hematocrit 45.0 % (37-47); Hemoglobin 15.3 g/dL (12.0-15.0); Immature Granulocytes Count 0.070 X10^3/uL (0.0-0.0); Mean Corp Hgb Conc 34.0 g/dL (32-36); Mean Corpuscular Volume 91.3 fL (81-99); Mean Platelet Vol. 9.1 fl (6.2-12.0); NRBC Flagged by Analyzer 0 % (0-5); Platelet Count 231 K/mm3 (150-450); RBC Distribution Width CV 13.2 % (11.6-14.6); RBC Distribution Width SD 44.4 fl (35.1-43.9); Red Blood Count 4.93 M/mm3 (4.2-5.4); White Blood Count 8.6 K/mm3 (4.4-11.0)
[2025-01-18 15:51] LABS: AST(SGOT) 26 U/L (<=31); Alanine Aminotransfer ALT/SGPT 29 U/L (<=34); Albumin, Serum 4.1 g/dL (3.4-4.8); Alkaline Phosphatase 84 U/L (35-104); Anion Gap 14 (5-15); BUN 17 mg/dL (4-19); BUN/Creat Ratio 16.3 RATIO (10-20); Calcium,Total 9.7 mg/dL (7.6-11.0); Carbon Dioxide 21.7 mmol/L (21.0-32.0); Chloride 104 mmol/L (98-108); Globulin 3.1 g/dL (2.2-4.2); Glucose 94 mg/dL (70-99); Potassium 4.1 mmol/L (3.3-5.1)
[2025-01-18 16:11] LABS: Vitamin D,25 Hydroxy 23.2 ng/mL (30-100)
[2025-01-18 22:23] LABS: Xtra Tube Kwok EXTRA TUBE
== END | disposition home or self-care (01) ==
LOC: POLAB3 14:22
PROVIDERS: PCP Family Medicine Geriatric Medicine; Visit Provider Family Medicine Geriatric Medicine
DX: I10 Essential (primary) hypertension (principal); E55.9 Vitamin D deficiency, unspecified
CPT/HCPCS: 36415; 80053; 82306; 84443; 85025

== ENCOUNTER → 2025-02-28 | Outpatient (CLI) | payer MEDICARE, SELFPAY | END | disposition home or self-care (01) | LOC: POLAB3 16:14 | PROVIDERS: PCP Family Medicine Geriatric Medicine; Visit Provider Family Medicine Geriatric Medicine | DX: R68.83 Chills (without fever) (principal) | CPT/HCPCS: 87631 ==